=== PATIENT | female | born 1955 | race Caucasian/White ===

== ENCOUNTER 2016-06-16 23:13 | Inpatient (IN) | payer BC, OTHER ==
[~2016-06-16] VITALS: Ht 170.2 cm; Wt 95.6 kg
[2016-06-16 23:13] VITALS: Ht 170.2 cm; Wt 95.6 kg
[~2016-06-16 23:13] MED LIST: ASPI-650; HYDR12.58; VENL75TA61
--- NOTE | 2016-06-16 23:20 | ERA ---
ER Documentation Chief Complaint Date/Time DATE: 06/16/16 TIME: 23:20 Chief Complaint Cardiac arrest HPI The patient is a 60-year-old female, presenting to the ER because of witnessed cardiac arrest around 10:25 pm by her daughter. She she appeared to have acute dyspnea and seizure-like activity after smoking, then fell backward and hit her head on the floor. The EMS arrived at the scene about 10:30 PM. She was intubated and defibrillated 5 times, treated with epinephrine 1 mg IV 4, amiodarone 450 mg IV and 1 amp of sodium bicarb IV with good response. The history is mainly obtained from spray painter helper and the daughter Past medical history: Hypertension, hepatitis C, cluster headache,CAD Past surgical history: Bilateral bunionectomy, tubal ligation ROS All systems reviewed and are negative except as per history of present illness. Medications Home Meds Reported Medications Aspirin (Aspirin) 81 Mg Tablet 04/01/10 Hydrochlorothiazide* (Hydrochlorothiazide*) 12.5 Mg Tablet 04/01/10 Venlafaxine Hcl (Effexor) 75 Mg Tablet 04/01/10 Allergies Allergies: Coded Allergies: Sulfa (Sulfonamide Antibiotics) (Verified Allergy, Unknown, 07/05/11) PMhx/Soc History of Surgery: Yes (FEET) Anesthesia Reaction: No Hx Neurological Disorder: No Hx Respiratory Disorders: No Hx Cardiac Disorders: Yes Hx Psychiatric Problems: Yes (DEPRESSION) Hx Miscellaneous Medical Probl: No Hx Alcohol Use: Yes (QUIT FOR 20 YRS) Hx Substance Use: Yes (QUIT 20 YEARS AGO) Hx Tobacco Use: Yes Physical Exam Vitals Vital Signs Date Time Temp Pulse Resp B/P Pulse Ox O2 Delivery O2 Flow Rate FiO2 06/16/16 23:40 50 06/16/16 23:16 21 100 100 06/16/16 23:13 98.6 77 20 95/57 100 Physical Exam Const: Intubated Head: Atraumatic. Eyes: Normal Conjunctiva. ENT: Normal External Ears, Nose and Mouth. Neck: Full range of motion. No meningismus. Resp: Clear to auscultation bilaterally. Anteriorly and laterally Cardio: Regular rate and rhythm, no murmurs. Abd: Soft, non distended, normal bowel sounds, non tender. Skin: No petechiae or rashes. Back: No midline or flank tenderness. Ext: No cyanosis, or edema. Neur: Unable to perform due to condition Psych: Unable to perform due to condition Result Diagram: 06/16/167 06/16/16 2317 Results 24 hrs Laboratory Tests Test 06/16/16 23:00 06/16/16 23:17 06/16/16 23:25 Magnesium Level 2.7mg/dl Activated Partial Thromboplast Time 37.0Sec Alanine Aminotransferase (ALT/SGPT) 25IU/L Albumin 3.3g/dl Albumin/Globulin Ratio 1.50 Alkaline Phosphatase 94IU/L Anion Gap 27 Aspartate Amino Transf (AST/SGOT) 50IU/L Basophils # 0.010^3/ul Basophils % 0.0% Blood Urea Nitrogen 17mg/dl Calcium Level 8.3mg/dl Carbon Dioxide Level 17mmol/L Chloride Level 100mmol/L Creatinine 0.95mg/dl Differential Comment MANUAL DIFF Direct Bilirubin 0.00mg/dl Eosinophils # 0.010^3/ul Eosinophils % 0.0% Globulin 2.20g/dl Glucose Level 285mg/dl Hematocrit 37.5% Hemoglobin 12.8g/dl INR International Normalized Ratio 1.10 Indirect Bilirubin 0.0mg/dl Lactic Acid Level 13.3mmol/L Lymphocytes # 9.210^3/ul Lymphocytes % 61.0% Mean Corpuscular Hemoglobin 32.2pg Mean Corpuscular Hemoglobin Concent 34.0g/dl Mean Corpuscular Volume 94.6fl Mean Platelet Volume 9.4fl Monocytes # 0.510^3/ul Monocytes % 3.0% Neutrophils # 5.110^3/ul Neutrophils % 34.0% Nucleated Red Blood Cells # 0.010^3/ul Nucleated Red Blood Cells % 0.0/100WBC Platelet Count 79092^3/UL Potassium Level 2.2mmol/L Prothrombin Time 14.2Sec Prothrombin Time Ratio 1.1 Red Blood Count 3.9610^6/ul Red Cell Distribution Width 12.8% Sodium Level 142mmol/L Total Bilirubin 0.0mg/dl Total Protein 5.5g/dl Troponin I 4.640ng/ml White Blood Count 15.110^3/ul Arterial Blood HCO3 15.7mmol/L Arterial Blood Base Excess -11.6mmol/L Arterial Blood Oxygen Saturation 99.2mmHG Kar Test ACCEPTAB Arterial Blood Gas Puncture Site Right Radial Arterial Blood Carboxyhemoglobin 0.5% Arterial Blood Date Drawn 06/16/2016 11:20:00 PM Arterial Blood Methemoglobin 0.5% Arterial Blood pCO2 (Temp correct) 40.4mmhg Arterial Blood pH (Temp corrected) 7.206 Arterial Blood pO2 (Temp corrected) 450.8mmHG Blood Gas A-a O2 Differential 221.8mmHg Blood Gas Actual Respiration Rate 16 Blood Gas Critical Value Read Back Selena DOHERTY MD Blood Gas Low PEEP Setting 5.0cmH2O Blood Gas Modality VENT - AC Blood Gas Notified Time 06/16/2016 11:35:57 PM Blood Gas Notified Whom MA Blood Gas Respiration Rate 16.0 Blood Gas Specimen Source Blood arterial Blood Gas Temperature 37.0C Blood Gas Tidal Volume 500.0mL FiO2 100.0% Oxyhemoglobin Percent 98.2% Total Hemoglobin 12.6g/dl Current Medications Medications (Trade) Dose Ordered Sig/Marta Route PRN Reason Start Time Stop Time Status Last Admin Dose Admin Heparin Sodium/ Sodium Chloride (Heparin 1000 Units/NS (A-Line)) 1,500 ml @ ud STK-MED ONCE .ROUTE 06/16/16 23:46 06/16/16 23:47 DC Iodixanol (Visipaque Locm) 100 ml STK-MED ONCE .ROUTE 06/16/16 23:47 06/16/16 23:48 DC Iodixanol (Visipaque Locm) 50 ml STK-MED ONCE .ROUTE 06/16/16 23:47 06/16/16 23:48 DC Nitroglycerin (Nitroglycerin (Intracoronary)) 1,000 mcg STK-MED ONCE .ROUTE 06/16/16 23:47 06/16/16 23:48 DC Procedures/[place] [id number] Radiology Main Line: [phone] DIAGNOSTIC IMAGING REPORT Patient: WAYNE MINER : 1955 Age: 60 Sex: F MR #: [id number] DOS: 06/16/16 2320 Ordering MD: SAM DOHERTY MD Location: E/R Room/Bed: PROCEDURE: XR Chest. CLINICAL INDICATION: Possible sepsis. NG tube placement TECHNIQUE: Portable AP supine view of the chest was obtained. COMPARISON: None. FINDINGS: The cardiomediastinal silhouette is within normal limits. An endotracheal tube is present the distal tip projecting 2.8 cm above the esther. The lungs are grossly clear. No nasogastric tube is visible. There is no evidence for pleural effusion, pneumothorax or pulmonary vascular congestion. The osseous structures are intact with no evidence for acute abnormality. RPTAT:HJJR IMPRESSION: 1. Distal tip of the endotracheal tube approximate 2.8 cm above the esther. 2. No NG tube is visible. 3. No evidence of acute intrathoracic pathology. Physician Janine Date Time Electronically viewed and signed by Physician Janine on 06/16/2016 23:49 JR/ CC: SAM DOHERTY MD [place] [id number] Radiology Main Line: [phone] DIAGNOSTIC IMAGING REPORT Patient: WAYNE MINER : 1955 Age: 60 Sex: F [id number] DOS: 06/16/16 2339 Ordering MD: SAM DOHERTY MD Location: E/R Room/Bed: PROCEDURE: CT Head without contrast. CLINICAL INDICATION: fall TECHNIQUE: Continuous axial CT images were obtained from the base of skull to the vertex. No contrast was administered. The calculated radiation dose measures 1696 mGy centimeters. The CTDI measures 240 mGy COMPARISON: No prior studies are available for comparison. FINDINGS: The ventricles are symmetric and normal in size. There is no mass effect or midline shift. There is no abnormal intra-axial or extra-axial fluid collection. There is no evidence of intracranial hemorrhage. There are no abnormal areas of increased or decreased attenuation in the brain parenchyma. There is left supraorbital and parietal scalp soft tissue swelling. The bony calvarium is intact. The orbital soft tissue contents are unremarkable. There is mild mucosal thickening in the paranasal sinuses. There is fluid in the posterior nasopharynx, with a endotracheal tube placed. IMPRESSION: No mass effect or acute intracranial bleed. Chronic sinus disease change. Left supraorbital and parietal scalp soft tissue swelling. RPTAT: HBST . .Angelo Diallo MD, Date Time Electronically viewed and signed by .Angelo Diallo MD, MD on 06/17/2016 00:18 .T/ CC: SAM DOHERTY MD [place] [id number] Radiology Main Line: [phone] DIAGNOSTIC IMAGING REPORT Patient: WAYNE MINER : 1955 Age: 60 Sex: F MR #: [id number] DOS: 06/16/16 2341 Ordering MD: SAM DOHERTY MD Location: E/R Room/Bed: PROCEDURE: CT Cervical Spine without contrast. CLINICAL INDICATION: Trauma, pain TECHNIQUE: Multiple axial cuts through the cervical spine with coronal and sagittal reformats were obtained without contrast. The calculated radiation dose measures 781 mGy centimeters. The CTDI measures 28 mGy COMPARISON: None available FINDINGS: There is straightening of the normal cervical lordosis. There is moderate to severe disk space narrowing at C5-C6 and C6-C7, with vacuum disk change. Vertebral body heights are maintained. There is no subluxation. There is no bone destruction or sclerosis. There is no dislocation or fracture. The atlantoaxial articulation appears normal. There is normal craniocervical alignment. There are mild disk osteophyte complexes at C5-C6 and C6-C7. There is minimal resulting bony central canal stenosis at C5-C6 and C6-C7. There is bilateral uncovertebral hypertrophy at C5-C6 and C6-C7. There are scattered mild facet hypertrophic changes through the cervical spine. There is mild appearing bony foraminal stenosis on the left at C5-C6 and C7-T1, and on the right at C3-C4, C5 -C6, and C6-C7. There is no abnormal paravertebral soft tissue mass. There is bilateral temporomandibular joint degenerative change. There is extensive bilateral dependent lung consolidation. IMPRESSION: 1. Straightening of the normal cervical lordosis. 2. No visualized fracture or dislocation. 3. Mild disk osteophyte complexes at C5-C6 and C6-C7, with minimal associated bony central canal stenosis. 4. Uncovertebral hypertrophy at C5-C6 and C6-C7, and scattered mild facet hypertrophic changes. Resulting mild foraminal stenosis as noted through the cervical spine. 5. Dense dependent bilateral lung consolidation, which may reflect aspiration pneumonia or pneumonitis. RPTAT: HBST .Angelo Diallo MD, MD Date Time Electronically viewed and signed by .Angelo Diallo MD, MD on 06/17/2016 00:29 .T/ CC: SAM DOHERTY MD EKG: Read by emergency physician at 11:12 PM Rate/Rhythm: Wide QRS and 79 beats/min QRS, ST, T-waves: Acute inferior [place] with lateral reciprocal changes, no PVC Impression: Abnormal EKG Consultation: The patient presenting with acute inferior [place]. I discussed the patient with the on-call club steward Dr Borja 11:15 pm. She was made aware of EKG finding and the pending labs and CT scan. She evaluated the patient in the ER and took the patient to the [facility] emergently MEDICAL MAKING DECISION: The patient is a 60-year-old female, presenting with acute inferior [place], status post cardiac arrest, probable acute septic shock, probable acute aspiration pneumonia, acute severe hypokalemia. She was treated with 2 L normal saline for acute hypotension, aspirin 300 mg suppository for acute STEMI, vancomycin IV and Zosyn IV for probable acute septic shock potassium chloride 40 mEq IV for acute hypokalemia, NG tube, Reina catheter, Ativan 2 mg IV and vecuronium 10 mg IV and propofol drip for sedation Admit MDM: Patient's infectious symptoms have not stabilized and the patient is at risk of rapid decompensation. The patient will be admitted for careful hydration, antibiotic therapy, and infectious source control. Severe Sepsis criteria: Infectious source: unknown End organ damage indicated by: Lactate > 2.0 mmol/L Hypotension (SBP < 90 or >40 mmHG drop or MAP < 65) Acute Resp Failure (sat < 92% w/o oxygen) Sepsis Management: Time of recognition of severe sepsis/septic shock: 11:20 pm Within 3 hours of recognition: Blood cultures x 2 before broad-spectrum antibiotics: Yes 30 ml/kg NS bolus completed Initial lactate 13,3 Repeat lactate pending Critical Care: Critical care time 35 minutes Emergent fluid management while maintaining close respiratory support. Provision of immediate and broad-spectrum antibiotic therapy. Simultaneous assessment for possible sources in order to direct targeted therapy. Consideration for invasive and chemical support to prevent cardiopulmonary collapse. Septic Shock Assessment: Any lactic acid > 4.0 yes Persistent hypotension (SBP < 90 or 40 mmHg drop, MAP < 65) despite 30 mL/kg IV fluid bolusno Volume Re-assessment for Septic Shock (post 30 ml/kg bolus): Temp93.6, BP161/90, HR87, RR20, Pox100% on vent Heart regular rate & rhythm Lungs no crackles Skin Warm & dry & pink Cap Refill less than 2 seconds Peripheral pulses radially present Persistent Hypotension Treatment: Comfort care no Central line not indicated, patient go to airport maintenance laborer Vasopressor started not indicated I considered further perfusion assessment with CVP measurement, SCVO2, bedside ultrasound volume assessment, passive leg raise, trial of further fluid bolus. And proceeded withIV fluid Departure Diagnosis: Primary Impression: STEMI (ST elevation myocardial infarction) Additional Impressions: Cardiac arrest Septic shock Hypokalemia Condition: Critical Comments I discussed the patient with Dr. Loaiza from [facility] who authorized admission to the hospitalist at [facility] I discussed the findings with the patient. I discussed the patient with the on- call hospitalist Dr. Siddiqui at 12:30 AM who was made aware of the lab, the treatment, the patient condition my discussion with investor relations analyst. The patient is admitted to ICU after going to airport maintenance laborer SAM DOHERTY MD Jun 16, 2016 23:20
[2016-06-16] MEDS ORDERED: PROPOFOL 100 ML ONE (23:25)
[2016-06-16] MEDS ORDERED: LORAZEPAM 2 MG INJ ONE (23:26)
[2016-06-16 23:33] LABS: HEMATOCRIT 37.5 % (37.0-47.0); HEMOGLOBIN 12.8 g/dl (12.0-16.0); MEAN CORPUSCULAR HEMOGLOBIN 32.2 pg (29.0-33.0); MEAN CORPUSCULAR VOLUME 94.6 fl (82.0-101.0); MEAN PLATELET VOLUME 9.4 fl (7.4-10.4); PLATELET COUNT 158 10^3/UL (140-440); RED BLOOD COUNT 3.96 10^6/ul (4.20-5.40); RED CELL DISTRIBUTION WIDTH 12.8 % (11.5-14.5); UNCORRECTED WBC 15.1 10^3/ul (4.8-10.8); WHITE BLOOD COUNT 15.1 10^3/ul (4.8-10.8)
[2016-06-16 23:40] LABS: CONDITION 1; LH ANALYZER COMMENTS 1
[2016-06-16 23:41] LABS: INR 1.1; PROTIME 14.2 Sec (12.2-14.2); PT RATIO 1.1
[2016-06-16 23:44] LABS: AADO2 Arterial 221.8 mmHg (7.0-24.0); Allen Test ACCEPTAB; Arterial Base Excess -11.6 mmol/L (-3.0-3); Arterial COHb 0.5 % (0.0-3.0); Arterial Fraction of Oxyhgb 98.2 % (93.0-99.0); Arterial HCO3 15.7 mmol/L (22.0-26.0); Arterial MetHb 0.5 % (0.0-1.5); Arterial Total Hemglobin 12.6 g/dl (12.0-18.0); MODE VENT - AC
[2016-06-16 23:47] LABS: ALBUMIN 3.3 g/dl (3.3-4.9)
[2016-06-16] MEDS ORDERED: NITROGLYCERIN (IC) 100 MCG/ML INJ ONE (23:47)
[2016-06-16] MEDS ORDERED: IODIXANOL LOCM 50 ML BTL ONE (23:47)
[2016-06-16] MEDS ORDERED: IODIXANOL LOCM 100 ML BTL ONE (23:47)
--- NOTE | 2016-06-16 23:49 | RADRPT ---
PROCEDURE: XR Chest. CLINICAL INDICATION: Possible sepsis. NG tube placement TECHNIQUE: Portable AP supine view of the chest was obtained. COMPARISON: None. FINDINGS: The cardiomediastinal silhouette is within normal limits. An endotracheal tube is present the dista l tip projecting 2.8 cm above the esther. The lungs are grossly clear. No nasogastric tube is visi ble. There is no evidence for pleural effusion, pneumothorax or pulmonary vascular congestion. The osseous structures are intact with no evidence for acute abnormality. RPTAT:HJJR IMPRESSION: 1. Distal tip of the endotracheal tube approximate 2.8 cm above the esther. 2. No NG tube is visible. 3. No evidence of acute intrathoracic pathology. Physician Janine Date Time Electronically viewed and signed by Physician Janine on 06/16/2016 23:49 /
[2016-06-16 23:50] LABS: ALBUMIN/GLOBULIN RATIO 1.5; CALCIUM 8.3 mg/dl (8.4-10.2); CREATININE 0.95 mg/dl (0.44-1.00); TOTAL PROTEIN 5.5 g/dl (6.1-8.1)
[2016-06-16 23:51] LABS: POTASSIUM 2.2 mmol/L (3.5-5.1)
[2016-06-17] VITALS (101 sets, daily range): BP systolic 101–176; BP diastolic 71–102; PULSE 49–90; RESP 0–25
[2016-06-17] MEDS ORDERED: VECURONIUM 10 MG VIAL ONE
[2016-06-17] MEDS ORDERED: POTASSIUM CHLORIDE 250 ML IVPB ONE
[2016-06-17] MEDS ORDERED: ASPIRIN 300 MG SUPP PR ONE
[2016-06-17] MEDS ORDERED: POTASSIUM CHLORIDE 40 MEQ in SOD CHLORIDE 0.9% 250 ML IV ONE (00:01)
--- NOTE | 2016-06-17 00:05 | CONS ---
Date/Time of Note Date/Time of Note DATE: 06/16/16 TIME: 23:58 Assessment/Plan Assessment/Plan Chief Complaint/Hosp Course 60 yo with witnessed vf arrest and ekg showing st elevations in inferior leads. Problems: Additional Assessment/Plan Impression: vf arrest stemi profound hypokalemia, K 2.2 hypertension hypercholesterolemia Plan: Cardiac cath now. Risks and benefits reviewed with son and daughter, they agree with proceeding. Replete K Further plans to come into place post cath. Consultation Date/Type/Reason Admit Date/Time 06/16/2016 Date of Consultation: Jun 16, 2016 Type of Consultation: cardiology Reason for Consultation VF arrest, inferior ST elevations Referring Provider: SAM DOHERTY MD Hx of Present Illness 60 yo smoker with hypertension, hypercholesterolemia, hep c, cluster headaches, and anxiety, presents after cardiac arrest. Patient went outside to smoke, family heard her fall to ground, ran outside to find her unresponsive and "seizing", son started CPR, EMS called and arrived within a few minutes. Presenting rhythm was VF, patient shocked five times, ekg post resuscitation shows ST elevations in the inferior leads. Subjective hx not possible: pt non-verbal, pt critical status Respiratory: sputum Past Medical History Medical History: hepatitis (hep c), high cholesterol, hypertension, other ( anxiety, cluster headaches) Past Surgical History Past Surgical Hx: no surgical history Family History Significant Family History: no pertinent family hx Social History Alcohol Use: none Smoking Status: Current every day smoker (half a pack a day) Drug Use: none Exam/Review of Systems Exam Constitutional: other (intubated, in c collar) Head: normocephalic ENMT: intubated Neck: No bruits, No jvd Respiratory: clear to auscultation (anteriorly) Cardiovascular: regular rate and rhythm Gastrointestinal: soft, No hepatomegaly Musculoskeletal: nl extremities to inspection Skin: No rash or lesions Results Result Diagram: 06/16/167 06/16/16 2317 Results 24 hrs Laboratory Tests Test 06/16/16 23:17 06/16/16 23:25 Activated Partial Thromboplast Time 37.0 H Alanine Aminotransferase (ALT/SGPT) 25 Albumin 3.3 Albumin/Globulin Ratio 1.50 Alkaline Phosphatase 94 Anion Gap 27 H Aspartate Amino Transf (AST/SGOT) 50 H Basophils # Pending Basophils % Pending Blood Urea Nitrogen 17 Calcium Level 8.3 L Carbon Dioxide Level 17 L Chloride Level 100 Creatinine 0.95 Direct Bilirubin 0.00 Eosinophils # Pending Eosinophils % Pending Globulin 2.20 Glucose Level 285 H Hematocrit 37.5 Hemoglobin 12.8 INR International Normalized Ratio 1.10 Indirect Bilirubin 0.0 Lactic Acid Level 13.3 *H Lymphocytes # Pending Lymphocytes % Pending Mean Corpuscular Hemoglobin 32.2 Mean Corpuscular Hemoglobin Concent 34.0 Mean Corpuscular Volume 94.6 Mean Platelet Volume 9.4 Monocytes # Pending Monocytes % Pending Neutrophils # Pending Neutrophils % Pending Nucleated Red Blood Cells # Pending Nucleated Red Blood Cells % Pending Platelet Count 158 Potassium Level 2.2 *L Prothrombin Time 14.2 Prothrombin Time Ratio 1.1 Red Blood Count 3.96 L Red Cell Distribution Width 12.8 Sodium Level 142 Total Bilirubin 0.0 L Total Protein 5.5 L Troponin I Pending White Blood Count 15.1 H Arterial Blood HCO3 15.7 L Arterial Blood Base Excess -11.6 L Arterial Blood Oxygen Saturation 99.2 H Kar Test ACCEPTAB Arterial Blood Gas Puncture Site Right Radial Arterial Blood Carboxyhemoglobin 0.5 Arterial Blood Date Drawn 06/16/2016 11:20:00 PM Arterial Blood Methemoglobin 0.5 Arterial Blood pCO2 (Temp correct) 40.4 Arterial Blood pH (Temp corrected) 7.206 *L Arterial Blood pO2 (Temp corrected) 450.8 H Blood Gas A-a O2 Differential 221.8 H Blood Gas Actual Respiration Rate 16 Blood Gas Critical Value Read Back Selena DOHERTY MD Blood Gas Low PEEP Setting 5.0 Blood Gas Modality VENT - AC Blood Gas Notified Time 06/16/2016 11:35:57 PM Blood Gas Notified Whom SHIRLEY Blood Gas Respiration Rate 16.0 Blood Gas Specimen Source Blood arterial Blood Gas Temperature 37.0 Blood Gas Tidal Volume 500.0 FiO2 100.0 Oxyhemoglobin Percent 98.2 Total Hemoglobin 12.6 Medications Medications Current Medications Aspirin 300 mg 300 mg ONCE ONCE CA ; Start 06/17/16 at 00:00; Stop 06/17/16 at 00:01 Potassium Chloride (KCl 40 MEQ/250 ML NS) 250 ml @ 62.5 mls/hr ONCE ONCE IVPB ; Start 06/17/16 at 00:00; Stop 06/17/16 at 03:59 NELIA COTTON Jun 17, 2016 00:05
[2016-06-17 00:06] LABS: TROPONIN-I 4.64 ng/ml (0.00-0.12)
--- NOTE | 2016-06-17 00:19 | RADRPT ---
PROCEDURE: CT Head without contrast. CLINICAL INDICATION: fall TECHNIQUE: Continuous axial CT images were obtained from the base of skull to the vertex. No cont rast was administered. The calculated radiation dose measures 1696 mGy centimeters. The CTDI measure s 240 mGy COMPARISON: No prior studies are available for comparison. FINDINGS: The ventricles are symmetric and normal in size. There is no mass effect or midline shift. There i s no abnormal intra-axial or extra-axial fluid collection. There is no evidence of intracranial hem orrhage. There are no abnormal areas of increased or decreased attenuation in the brain parenchyma. There is left supraorbital and parietal scalp soft tissue swelling. The bony calvarium is intact. The orbital soft tissue contents are unremarkable. There is mild muc osal thickening in the paranasal sinuses. There is fluid in the posterior nasopharynx, with a endot pricilla tube placed. IMPRESSION: No mass effect or acute intracranial bleed. Chronic sinus disease change. Left supraorbital and par ietal scalp soft tissue swelling. RPTAT: HBST . .Angelo Diallo MD, MD Date Time Electronically viewed and signed by .Angelo Diallo MD, MD on 06/17/2016 00:18 .T/
--- NOTE | 2016-06-17 00:29 | RADRPT ---
PROCEDURE: CT Cervical Spine without contrast. CLINICAL INDICATION: Trauma, pain TECHNIQUE: Multiple axial cuts through the cervical spine with coronal and sagittal reformats were obtained without contrast. The calculated radiation dose measures 781 mGy centimeters. The CTDI korey sures 28 mGy COMPARISON: None available FINDINGS: There is straightening of the normal cervical lordosis. There is moderate to severe disk space narr owing at C5-C6 and C6-C7, with vacuum disk change. Vertebral body heights are maintained. There is no subluxation. There is no bone destruction or sclerosis. There is no dislocation or fracture. The atlantoaxial articulation appears normal. There is normal craniocervical alignment. There are mild disk osteophyte complexes at C5-C6 and C6-C7. There is minimal resulting bony centra l canal stenosis at C5-C6 and C6-C7. There is bilateral uncovertebral hypertrophy at C5-C6 and C6-C 7. There are scattered mild facet hypertrophic changes through the cervical spine. There is mild a ppearing bony foraminal stenosis on the left at C5-C6 and C7-T1, and on the right at C3-C4, C5-C6, a nd C6-C7. There is no abnormal paravertebral soft tissue mass. There is bilateral temporomandibular joint dege nerative change. There is extensive bilateral dependent lung consolidation. IMPRESSION: 1. Straightening of the normal cervical lordosis. 2. No visualized fracture or dislocation. 3. Mild disk osteophyte complexes at C5-C6 and C6-C7, with minimal associated bony central canal st enosis. 4. Uncovertebral hypertrophy at C5-C6 and C6-C7, and scattered mild facet hypertrophic changes. Re sulting mild foraminal stenosis as noted through the cervical spine. 5. Dense dependent bilateral lung consolidation, which may reflect aspiration pneumonia or pneumoni tis. RPTAT: HBST .Angelo Diallo MD, MD Date Time Electronically viewed and signed by .Angelo Diallo MD, on 06/17/2016 00:29 .T/
[2016-06-17] MEDS ORDERED: PIPER-TAZO 3.375 GM IV (PMX) 100 ML IVPB ONE (00:30)
[2016-06-17] MEDS ORDERED: VANCOMYCIN 1 GM (PMX) 250 ML IVPB SCH (00:30)
[2016-06-17] MEDS ORDERED: EPTIFIBATIDE 10 ML ONE (01:20)
[2016-06-17] MEDS ORDERED: IODIXANOL LOCM 100 ML BTL ONE (01:20)
[2016-06-17] MEDS ORDERED: EPTIFIBATIDE 100 ML IV ONE (01:20)
--- NOTE | 2016-06-17 01:25 | EN ---
Date/Time of Note Date/Time of Note DATE: 06/17/16 TIME: Event Note Cardiology Cardiology Event Note Cardiac Catheterization Report Date of Procedure: June 17, 2016 Pre-Procedure Dx: VF arrest and inferior STEMI Post-Procedure Dx: VF arrest most likely secondary to profound hypokalemia due to diuretic usage, possible but less likely thrombosis of the distal left circumflex Procedures performed: Coronary angiography, left heart catheterization, left ventriculography, balloon angioplasty of the distal left circumflex Findings: Left main normal LAD -- Mild 10% luminal irregularities in the proximal and mid vessel. LCX -- nondominant. Possible abrupt cutoff in the distal vessel, which measures about 2 mm in diameter RCA -- dominant, normal LV gram demonstrates normal LV systolic function, EF 65%, no wall motion abnormalities. Indications: Witnessed VF arrest and abnormal ekg. Informed consent obtained from son and daughter. Right common femoral artery accessed, 6F sheath placed. JL4 diagnostic and FR4 guide used to take diagnostic images. Upon close review of images, there was a question of whether there was an abrupt cutoff of the distal left circumflex. Heparin administered, a Luge wire passed but did not advance much further than the cutoff, a 2.0x12 mm balloon was inflated, and there was some faint improvement of flow distally. Integrilin started. Due to the vessel being very small, no stent was placed. Discussion: VF arrest. While there was a questionable distal LCX lesion, it seems more likely that the patient's cardiac arrest was secondary to profound hypokalemia with a K of 2.2, and she chronically takes hydrochlorothiazide 25 mg daily for blood pressure control. That said, to err on the side of caution that there may have been occlusion of this very small vessel, Integrilin will be continued. The above was discussed with the patient's son and daughter. NELIA COTTON Jun 17, 2016 01:25
[2016-06-17] MEDS ORDERED: SOD CHLORIDE 0.9% 1,000 ML IV SCH (01:28)
[2016-06-17] MEDS ORDERED: HEPARIN 1000 UNITS/ML 10 ML INJ ONE (01:29)
[2016-06-17] MEDS ORDERED: DEXTROSE 50% 50 ML SYRINGE IV PRN ×2 (01:30)
[2016-06-17] MEDS ORDERED: ACETAMINOPHEN 650 MG SUPP PR PRN ×2 (01:30)
[2016-06-17] MEDS ORDERED: BISACODYL 10 MG SUPP PR PRN (01:30)
[2016-06-17] MEDS ORDERED: LORAZEPAM 2 MG INJ IV PRN (01:30)
[2016-06-17] MEDS ORDERED: ACETAMINOPHEN 650MG/20.3ML CUP PO PRN (01:30)
[2016-06-17] MEDS ORDERED: IPRATROPIUM (HFA) 12.9 GM INHALER INH PRN (01:30)
[2016-06-17] MEDS ORDERED: MEPERIDINE 25 MG INJ IV PRN ×2 (01:30)
[2016-06-17] MEDS ORDERED: NITROGLYCERIN (SL) 0.4 MG TAB SL PRN (01:30)
[2016-06-17] MEDS ORDERED: INSULIN REGULAR, HUMAN 100 UNIT in SOD CHLORIDE 0.9% 99 ML IV SCH ×2 (01:30)
[2016-06-17] MEDS ORDERED: POTASSIUM CHLORIDE 250 ML IV ONE (01:30)
[2016-06-17] MEDS ORDERED: ALBUTEROL HFA 8 GM INHALER INH PRN (01:30)
[2016-06-17] MEDS: ACCUCHECK XX SCH ×23 (01:30→23:48)
[2016-06-17] MEDS ORDERED: EPTIFIBATIDE 100 ML IV SCH (01:30)
[2016-06-17] MEDS ORDERED: ONDANSETRON 4 MG INJ IV PRN (01:30)
[2016-06-17 01:40] LABS: LYMPHOCYTES # 9.2 10^3/ul (0.8-2.9); MONOCYTE # 0.5 10^3/ul (0.3-0.9); NEUTROPHIL # 5.1 10^3/ul (1.6-7.5)
--- NOTE | 2016-06-17 01:59 | HP ---
Date/Time of Note Date/Time of Note DATE: 06/17/16 TIME: 01:48 Assessment/Plan VTE Prophylaxis VTE Prophylaxis Intervention: SCD's Lines/Catheters Urinary Cath still in place: Yes Reason Cath still needed: urinary retention Assessment/Plan Assessment/Plan 60 yo female with a past medical history of essential hypertension, depression who came in for Vfib arrest. 1. Vfib arrest - 2/2 severe hypokalemia vs cardiac origin will admit the patient to ICU, consult pulm/cardio, cycle cardiac markers, check echocardiogram , TSH level, lipid panel, hypothermia protocol 2. VDRF - will wean as tolerated, once weaned off of hypothermia 3. Metabolic acidosis - severe - will start bicarb drip 4. Severe hypokalemia - replete 5. Bilateral pneumonia vs pneumonitis - will start IV antibiotics 6. Hyperglycemia - check hgba1c, insulin drip as per protocol 7. Essential hypertension - stable for now 8. Depression - hold ssri 9. GI ppx - protonix 10. DVT ppx - heparin as per clinical course. prognosis is guarded this critical care note took greater than 1 hour to complete HPI/ROS Admit Date/Time Admit Date/Time 06/17/2016, 1:48 am Hx of Present Illness 60 yo female with a past medical history of essential hypertension, depression who came in for Vfib arrest. The patient was noted to by family to have collapsed on the floor, hit the back of her head. Immediately the family conducted CPR until EMS arrived. EMS took over and intubated the patient as well. She was subsequently brought here to [facility] for further evaluation and treatment. Patient had 4 rounds of epinephrine, 450 bolus of amiodarone for sustained Vfib. Code STEMI was called and patient was taken to seed laboratory technician by cardiology. All this information was gathered from the chart, as the patient is intubated and sedated. ED course: zosyn/vanc, potassium supplementation, aspirin ROS Subjective hx not possible: pt non-verbal, pt critical status Respiratory: sputum PMH/Family/Social Past Medical History Medical History: hepatitis (hep c), high cholesterol, hypertension, other ( anxiety, cluster headaches) Past Surgical History Past Surgical Hx: no surgical history Family History Significant Family History: no pertinent family hx Social History Alcohol Use: none Smoking Status: Current every day smoker (half a pack a day) Drug Use: none Exam/Review of Systems Vital Signs Vitals Vital Signs Date Time Temp Pulse Resp B/P Pulse Ox O2 Delivery O2 Flow Rate FiO2 06/17/16 01:05 84 20 100 50 06/16/16 23:13 98.6 95/57 Exam Exam Gen Juan: intubated sedated HEENT: hematoma left supraorbital region, PERRLA, ETT in place NECK: supple, no thyromegaly THORAX: symmetrical, no obvious deformities CV: S1S2, RRR, no M/G/R Lungs: diminished breath sounds to the bases bilaterally, no wheezing or rhonchi Abd: soft, NT/ND, +BS, no rebound, no guarding, neg HSM EXT: trace bilateral lower extremity edema, no ecchymosis, no clubbing, FROM Neuro: sedated Psych: cannot assess Skin: C/D/I Labs Result Diagram: 06/16/16231606/16/162316 Medications Medications Current Medications Potassium Chloride 40 meq/ Sodium Chloride 270 ml @ 67.5 mls/hr ONCE ONCE IV Last administered on 06/17/16t 00:10; Admin Dose 67.5 MLS/HR; Start 06/17/16 at 00:01; Stop 06/17/16 at 04:00 Vancomycin HCl 250 ml @ 125 mls/hr ONCE IVPB ; Start 06/17/16 at 00:30; Stop at 02:29 Eptifibatide (Integrilin) 100 ml @ 6.27 mls/hr [id number] IV ; Start 06/17/16 at 01:30 Aspirin (Aspirin) 81 mg DAILY NGT ; Start 06/17/16 at 09:00 Clopidogrel Bisulfate (plaVIX) 75 mg DAILY NGT ; Start 06/17/16 at 09:00 Atorvastatin Calcium 80 mg 80 mg HS NGT ; Start 06/17/16 at 21:00 Sodium Chloride (NS) 1,000 ml @ 50 mls/hr Q20H IV ; Start 06/17/16 at 01:28; Status UNV Ondansetron HCl 4 mg 4 mg Q6H PRN IV NAUSEA AND/OR VOMITING; Start 06/17/16 at 01:30; Status UNV Potassium Chloride (KCl 40 MEQ/250 ML NS) 250 ml @ 62.5 mls/hr ONCE ONCE IV ; Start 06/17/16 at 01:30; Stop 06/17/16 at 05:29; Status UNV Nitroglycerin (Nitroglycerin (Sl Tab) 0.4 Mg) 1 tab Q5M PRN SL CHEST PAIN; Start 06/17/16 at 01:30; Status UNV Acetaminophen (Tylenol Supp) 650 mg Q4H PRN [place] PAIN LEVEL 1-3 OR FEVER; Start 06/17/16 at 01:30; Status UNV Lorazepam (Ativan) 1 mg Q2H PRN IV ANXIETY; Start 06/17/16 at 01:30; Status UNV Bisacodyl (Dulcolax Supp) 10 mg DAILY PRN DE CONSTIPATION; Start 06/17/16 at 01 :30; Status UNV Pantoprazole 40 mg 40 mg DAILY@06 IV ; Start 06/17/16 at 06:00; Status UNV Sodium Chloride (NS) 1,000 ml @ 75 mls/hr [id number] IV ; Start 06/17/16 at 01:28 ; Status UNV Acetaminophen (Tylenol Supp) 650 mg Q4H PRN DE TEMP > 37C; Start 06/17/16 at 01 :30; Status UNV Acetaminophen (Tylenol Liquid) 650 mg Q4H PRN PO TEMP > 37C; Start 06/17/16 at 01:30; Status UNV Acetaminophen (Tylenol Supp) 500 mg Q6H DE ; Start 06/18/16 at 01:30; Status UNV Acetaminophen (Tylenol Liquid) 500 mg Q6H PO ; Start 06/18/16 at 01:30; Status UNV Meperidine HCl (Demerol) 12.5 mg Q4H PRN IV POST OPERATIVE SHIVERING; Start at 01:30; Status UNV Meperidine HCl (Demerol) 25 mg Q4H PRN IV POST OPERATIVE SHIVERING; Start 06/17 at 01:30; Status UNV Eye Lubricant (Akwa Oint) 1 applic Q6 BOTH EYES ; Start 06/17/16 at 06:00; Status UNV Eye Lubricant (Artificial Tears Oph) 2 drop Q6 BOTH EYES ; Start 06/17/16 at 06: 00; Status UNV Miscellaneous Information (* Miscellaneous Pharmacy Order) Discontinue all previ... PROTOCOL ONCE XX ; Start 06/17/16 at 01:30; Stop 06/17/16 at 01:31; Status UNV Diagnostic Test (Pha) (Accucheck) 1 ea Q1H XX ; Start 06/17/16 at 01:30; Status UNV Dextrose (D50w Syringe) 25 ml Q15M PRN IV Till BS 80 mg/dL or above x2; Start 06/17/16 at 01:30; Status UNV Dextrose (D50w Syringe) 50 ml Q15M PRN IV Till BS 80 mg/dL or above x2; Start 06/17/16 at 01:30; Status UNV Miscellaneous Information MEDICATION REQUIRES CLARIFICATI... Q8H XX ; Start 06/17/16 at 02:00 Sodium Bicarbonate/ Dextrose (Na Bicarb/D5W) 1,150 ml @ 50 mls/hr Q23H IV ; Start 06/17/16 at 02:00; Status UNV Procedures Procedures CT neck IMPRESSION: 1. Straightening of the normal cervical lordosis. 2. No visualized fracture or dislocation. 3. Mild disk osteophyte complexes at C5-C6 and C6-C7, with minimal associated bony central canal stenosis. 4. Uncovertebral hypertrophy at C5-C6 and C6-C7, and scattered mild facet hypertrophic changes. Resulting mild foraminal stenosis as noted through the cervical spine. 5. Dense dependent bilateral lung consolidation, which may reflect aspiration pneumonia or pneumonitis. CT head IMPRESSION: No mass effect or acute intracranial bleed. Chronic sinus disease change. Left supraorbital and parietal scalp soft tissue swelling. CXR IMPRESSION: 1. Distal tip of the endotracheal tube approximate 2.8 cm above the esther. 2. No NG tube is visible. 3. No evidence of acute intrathoracic pathology. VLAD ERWIN MD Jun 17, 2016 01:59
[2016-06-17] MEDS ORDERED: VANCOMYCIN IV PER PHARMACY XX SCH (02:00)
[2016-06-17] MEDS ORDERED: VANCOMYCIN 2 GM in SOD CHLORIDE 0.9% 500 ML IVPB ONE (02:00)
--- NOTE | 2016-06-17 02:02 | EN ---
Date/Time of Note Date/Time of Note DATE: 06/17/16 TIME: 02:00 Event Note Cardiology Cardiology Event Note Central Line Placement Indication: Cooling protocol, need central venous access Using modified seldinger technique, the right common femoral vein was accessed. Wire advanced, and over this, the central line was advanced. Ports were flushed, and the catheter was sutured in place. EBL: 5 cc Complications: None NELIA COTTON Jun 17, 2016 02:02
[2016-06-17 02:22] LABS: AADO2 Arterial 196.6 mmHg (7.0-24.0); Arterial Base Excess -5.8 mmol/L (-3.0-3); Arterial COHb 0.4 % (0.0-3.0); Arterial Fraction of Oxyhgb 96.5 % (93.0-99.0); Arterial HCO3 20.5 mmol/L (22.0-26.0); Arterial MetHb 0.4 % (0.0-1.5); Arterial Total Hemglobin 14.1 g/dl (12.0-18.0); MODE VENT - AC
[2016-06-17] MEDS: SOD CHLORIDE 0.9% 1,000 ML IV SCH ×2 (03:08→21:05)
[2016-06-17] MEDS: SODIUM BICARBONATE (IV ADD) 150 MEQ in DEXTROSE 5% 850 ML IV SCH ×2 (03:09→21:07)
[2016-06-17 03:11] LABS: CHOL/HDL RATIO 3.3 RATIO
[2016-06-17] MEDS: PROPOFOL 100 ML IV SCH ×5 (03:13→22:02)
[2016-06-17 03:42] LABS: THYROID STIMULATING HORMONE 2.3 MIU/L (0.465-4.680)
[2016-06-17] MEDS: VECURONIUM 100 MG in DEXTROSE 5% 100 ML IV SCH ×2 (04:13→14:15)
[2016-06-17] MEDS ORDERED: AMIODARONE 900 MG in DEXTROSE 5% 482 ML IV SCH (05:00)
[2016-06-17 06:11] LABS: ALBUMIN 3.8 g/dl (3.3-4.9)
[2016-06-17 06:14] LABS: ALBUMIN/GLOBULIN RATIO 1.58; BILIRUBIN,INDIRECT 0.1 mg/dl (0-1.1); BILIRUBIN,TOTAL 0.1 mg/dl (0.2-1.3); CREATININE 0.65 mg/dl (0.44-1.00); TOTAL PROTEIN 6.2 g/dl (6.1-8.1)
[2016-06-17 06:15] LABS: CALCIUM 6.7 mg/dl (8.4-10.2)
[2016-06-17 06:33] LABS: POTASSIUM 2.5 mmol/L (3.5-5.1)
[2016-06-17] MEDS: POTASSIUM CHLORIDE 50 ML IVPB PRN ×7 (06:39→22:02)
[2016-06-17] MEDS: PIPER-TAZO 3.375 GM IV (PMX) 100 ML IVPB SCH ×4 (06:42→23:27)
[2016-06-17] MEDS: OCULAR LUBRICANT 3.5 GM OPH OINT BOTH EYES SCH ×4 (06:43→23:28)
[2016-06-17] MEDS: PANTOPRAZOLE 40 MG INJ IV SCH (06:43)
[2016-06-17] MEDS: ARTIFICIAL TEARS 15 ML OPH BOTH EYES SCH ×4 (06:58→23:28)
--- NOTE | 2016-06-17 06:59 | RADRPT ---
PROCEDURE: XR Chest and abdomen. CLINICAL INDICATION: Nasogastric tube placement TECHNIQUE: An AP view of the chest and AP view of the upper abdomen were obtained. COMPARISON: Chest x-ray dated 06/16/2016 FINDINGS: The endotracheal tube tip is approximately 3.8 cm above the esther. The tip of the enteric tube is within the gastric body. Lung volumes are low with compressive changes. No focal airspace opacity, pleural effusion or pneumo thorax is seen. The cardiomediastinal silhouette is within normal limits for size. The osseous str uctures are unremarkable. IMPRESSION: 1. Low lung volumes with compressive changes. No significant interval change. 2. Tubes and lines, as described above. RPTAT: HH .Bonnie Cornelius MD, Date Time Electronically viewed and signed by .Bonnie Cornelius MD, on 06/17/2016 06:58 .G/
[2016-06-17 08:03] LABS: BASOPHILS % 0.2 % (0.0-2.0); EOSINOPHILS % 0.1 % (0.0-7.0); HEMOGLOBIN 13.9 g/dl (12.0-16.0); LYMPHOCYTES # 1.2 10^3/ul (0.8-2.9); LYMPHOCYTES % 7.3 % (15.0-51.0); MEAN CORPUSCULAR HEMOGLOBIN 31.7 pg (29.0-33.0); MEAN CORPUSCULAR HGB CONC 34.8 g/dl (32.0-37.0); MEAN CORPUSCULAR VOLUME 91.1 fl (82.0-101.0); MEAN PLATELET VOLUME 11.1 fl (7.4-10.4); MONOCYTE # 1.6 10^3/ul (0.3-0.9); MONOCYTES % 9.8 % (0.0-11.0); NEUTROPHIL # 13.2 10^3/ul (1.6-7.5); NEUTROPHILS % 81.3 % (39.0-77.0); PLATELET COUNT 174 10^3/UL (140-415); RED BLOOD COUNT 4.39 10^6/ul (4.20-5.40); RED CELL DISTRIBUTION WIDTH 12.5 % (11.5-14.5); WHITE BLOOD COUNT 16.2 10^3/ul (4.8-10.8)
[2016-06-17 08:07] LABS: AADO2 Arterial 184.3 mmHg (7.0-24.0); Arterial Base Excess -7.1 mmol/L (-3.0-3); Arterial COHb 0.3 % (0.0-3.0); Arterial Fraction of Oxyhgb 97.9 % (93.0-99.0); Arterial HCO3 18.8 mmol/L (22.0-26.0); Arterial MetHb 0.3 % (0.0-1.5); MODE VENT - AC
[2016-06-17] MEDS: IPRATROPIUM (HFA) 12.9 GM INHALER INH SCH ×4 (09:00→21:00)
[2016-06-17] MEDS: CLOPIDOGREL 75 MG TAB NGT SCH (09:00)
[2016-06-17] MEDS: ALBUTEROL HFA 8 GM INHALER INH SCH ×4 (09:00→21:00)
[2016-06-17] MEDS: ASPIRIN 81 MG TAB NGT SCH (09:00)
--- NOTE | 2016-06-17 09:19 | CONS ---
Date/Time of Note Date/Time of Note DATE: 06/17/16 TIME: 09:14 Assessment/Plan Assessment/Plan Additional Assessment/Plan Chest x-ray was reviewed from today which is showing endotracheal tube at an adequate level. There are minimal bilateral upper lobe infiltrates present. CT scan of spine also was done which is negative for any acute fracture. Assessment and recommendation; 1. Patient admitted for cardiac arrest with long CPR. Currently on hypothermia protocol. 2. Possibly some element of aspiration pneumonia. 3. Hypokalemia, currently on potassium replacement. 4. Difficult to rule out anoxic brain injury at this point. Continue current treatment. Mental status to be assessed once patient is off hypothermia protocol. Prognosis remains guarded. Consultation Date/Type/Reason Admit Date/Time 06/17/2016, 1:48 am Date of Consultation: Jun 17, 2016 Type of Consultation: Pulmonary/critical Reason for Consultation 60-year-old lady brought into the emergency room yesterday after cardiac arrest at home. Consultations obtained for management of respiratory failure. History of presenting illness; 60-year-old lady brought into the emergency room yesterday after the patient collapsed at home. Patient was in asystole underwent along CPR. Patient also had to be resuscitated at least a couple of times. Was taken to the [facility]. Also received Integrilin. Currently the patient is orally intubated on hypothermia protocol. Sedated and paralyzed. History was obtained from medical records Past medical history; 1. Hypertension. 2. Hepatitis C. 3. History of cluster headaches. 4. History of tubal ligation. Medications; were reviewed. Allergies; are to sulfa drugs. Social history; patient is a current smoker. Family history; currently not available. Occupational history; currently not available. Review of systems; not obtainable. General examination; middle aged woman, orally intubated. Sedated. Respiratory: sputum Past Medical History Medical History: hepatitis (hep c), high cholesterol, hypertension, other ( anxiety, cluster headaches) Past Surgical History Past Surgical Hx: no surgical history Social History Alcohol Use: none Smoking Status: Current every day smoker Drug Use: none Exam/Review of Systems Vital Signs Vitals Vital Signs Date Time Temp Pulse Resp B/P Pulse Ox O2 Delivery O2 Flow Rate FiO2 06/17/16 08:30 70 20 160/95 100 06/17/16 07:30 91.1 06/17/16 07:06 50 06/17/16 03:31 Mechanical Ventilator Intake and Output 06/16/16 06/16/16 06/17/16 15:00 23:00 07:00 Intake Total 737.79 ml Output Total 2503 ml Balance -1765.21 ml Exam H EENT examination; supple neck, positive JVD. No lymphadenopathy. Or intubated. Pupils are midsize and sluggishly reactive to light bilaterally. There is bleeding around the mouth. No neck masses. No thyromegaly. Chest examination; clear to auscultation bilaterally. S1-S2 audible, no murmurs. Regular rhythm. Abdomen examination; soft, nondistended. No organomegaly. Bowel sounds are audible. Extremity examination; no peripheral edema. Pulses 1+ bilaterally. RETAIL PHARMACIST examination; patient is sedated and paralyzed. Results Result Diagram: 06/17/16 0500 06/17/16 0500 Results 24 hrs Laboratory Tests Test 06/16/16 23:00 06/16/16 23:17 06/16/16 23:25 06/17/16 01:28 Magnesium Level 2.7 H Activated Partial Thromboplast Time 37.0 H Alanine Aminotransferase (ALT/SGPT) 25 Albumin 3.3 Albumin/Globulin Ratio 1.50 Alkaline Phosphatase 94 Anion Gap 27 H Aspartate Amino Transf (AST/SGOT) 50 H Basophils # 0.0 Basophils % 0.0 Blood Urea Nitrogen 17 Calcium Level 8.3 L Carbon Dioxide Level 17 L Chloride Level 100 Creatinine 0.95 Differential Comment MANUAL DIFF Direct Bilirubin 0.00 Eosinophils # 0.0 Eosinophils % 0.0 Globulin 2.20 Glucose Level 285 H Hematocrit 37.5 Hemoglobin 12.8 INR International Normalized Ratio 1.10 Indirect Bilirubin 0.0 Lactic Acid Level 13.3 *H Lymphocytes # 9.2 H Lymphocytes % 61.0 H Mean Corpuscular Hemoglobin 32.2 Mean Corpuscular Hemoglobin Concent 34.0 Mean Corpuscular Volume 94.6 Mean Platelet Volume 9.4 Monocytes # 0.5 Monocytes % 3.0 Neutrophils # 5.1 Neutrophils % 34.0 L Nucleated Red Blood Cells # 0.0 Nucleated Red Blood Cells % 0.0 Platelet Count 158 Potassium Level 2.2 *L Prothrombin Time 14.2 Prothrombin Time Ratio 1.1 Red Blood Count 3.96 L Red Cell Distribution Width 12.8 Sodium Level 142 Total Bilirubin 0.0 L Total Protein 5.5 L Troponin I 4.640 *H White Blood Count 15.1 H Arterial Blood HCO3 15.7 L 20.5 L Arterial Blood Base Excess -11.6 L -5.8 L Arterial Blood Oxygen Saturation 99.2 H 97.3 Kar Test ACCEPTAB N/A Arterial Blood Gas Puncture Site Right Radial A-Line Arterial Blood Carboxyhemoglobin 0.5 0.4 Arterial Blood Date Drawn 06/16/2016 11:20:00 PM 06/17/2016 2:10:55 AM Arterial Blood Methemoglobin 0.5 0.4 Arterial Blood pCO2 (Temp correct) 40.4 43.3 Arterial Blood pH (Temp corrected) 7.206 *L 7.294 *L Arterial Blood pO2 (Temp corrected) 450.8 H 111.2 H Blood Gas A-a O2 Differential 221.8 H 196.6 H Blood Gas Actual Respiration Rate 16 22 Blood Gas Critical Value Read Back Selena DOHERTY MD, RN Blood Gas Low PEEP Setting 5.0 5.0 Blood Gas Modality VENT - AC VENT - AC Blood Gas Notified Time 06/16/2016 11:35:57 PM 06/17/2016 2:21:53 AM Blood Gas Notified Whom SHIRLEY Blood Gas Respiration Rate 16.0 20.0 Blood Gas Specimen Source Blood arterial Blood arterial Blood Gas Temperature 37.0 37.0 Blood Gas Tidal Volume 500.0 500.0 FiO2 100.0 50.0 Oxyhemoglobin Percent 98.2 96.5 Total Hemoglobin 12.6 14.1 Test 06/17/16 02:11 06/17/16 03:04 06/17/16 04:02 06/17/16 05:00 Cholesterol Level 146 Cholesterol/HDL Ratio 3.3 HDL Cholesterol 44 Hemoglobin A1c 5.3 LDL Cholesterol, Calculated 92 Thyroid Stimulating Hormone (TSH) 2.300 Triglycerides Level 48 Troponin I 5.060 *H Bedside Glucose 209 166 Alanine Aminotransferase (ALT/SGPT) 46 Albumin 3.8 Albumin/Globulin Ratio 1.58 Alkaline Phosphatase 80 Anion Gap 18 #H Aspartate Amino Transf (AST/SGOT) 93 H Basophils # 0.0 Basophils % 0.2 Blood Urea Nitrogen 17 Calcium Level 6.7 L Carbon Dioxide Level 22 Chloride Level 113 H Creatinine 0.65 Direct Bilirubin 0.00 Eosinophils # 0.0 Eosinophils % 0.1 Globulin 2.40 Glucose Level 168 # Hematocrit 40.0 Hemoglobin 13.9 Indirect Bilirubin 0.1 Lactic Acid Level 2.8 H Lymphocytes # 1.2 Lymphocytes % 7.3 L Mean Corpuscular Hemoglobin 31.7 Mean Corpuscular Hemoglobin Concent 34.8 Mean Corpuscular Volume 91.1 Mean Platelet Volume 11.1 H Monocytes # 1.6 H Monocytes % 9.8 Neutrophils # 13.2 H Neutrophils % 81.3 H Nucleated Red Blood Cells # 0.0 Nucleated Red Blood Cells % 0.0 Platelet Count 174 Potassium Level 2.5 *L Red Blood Count 4.39 Red Cell Distribution Width 12.5 Sodium Level 150 H Total Bilirubin 0.1 L Total Protein 6.2 White Blood Count 16.2 H Test 06/17/16 05:35 06/17/16 07:00 06/17/16 07:29 06/17/16 08:46 Bedside Glucose 180 169 161 Arterial Blood HCO3 18.8 L Arterial Blood Base Excess -7.1 L Arterial Blood Oxygen Saturation 98.5 H Kar Test N/A Arterial Blood Gas Puncture Site A-Line Arterial Blood Carboxyhemoglobin 0.3 Arterial Blood Date Drawn 06/17/2016 7:48:17 AM Arterial Blood Methemoglobin 0.3 Arterial Blood pCO2 (Temp correct) 32.3 L Arterial Blood pH (Temp corrected) 7.360 Arterial Blood pO2 (Temp corrected) 140.9 H Blood Gas A-a O2 Differential 184.3 H Blood Gas Actual Respiration Rate 20 Blood Gas Critical Value Read Back A JAMES BRUNNER Blood Gas Low PEEP Setting 5.0 Blood Gas Modality VENT - AC Blood Gas Notified Time 06/17/2016 8:07:21 AM Blood Gas Notified Whom JLD Blood Gas Respiration Rate 20.0 Blood Gas Specimen Source Blood arterial Blood Gas Temperature 32.6 Blood Gas Tidal Volume 500.0 FiO2 50.0 Oxyhemoglobin Percent 97.9 Total Hemoglobin 14.0 Troponin I 6.470 *H Medications Medications Current Medications Aspirin (Aspirin) 81 mg DAILY NGT ; Start 06/17/16 at 09:00 Clopidogrel Bisulfate (plaVIX) 75 mg DAILY NGT ; Start 06/17/16 at 09:00 Atorvastatin Calcium 80 mg 80 mg HS NGT ; Start 06/17/16 at 21:00 Sodium Chloride (NS) 1,000 ml @ 50 mls/hr Q20H IV Last administered on t 03:08; Admin Dose 50 MLS/HR; Start 06/17/16 at 01:28 Ondansetron HCl (Zofran Inj) 4 mg Q6H PRN IV NAUSEA AND/OR VOMITING; Start at 01:30 Nitroglycerin (Nitroglycerin (Sl Tab) 0.4 Mg) 1 tab Q5M PRN SL CHEST PAIN; Start 06/17/16 at 01:30 Acetaminophen (Tylenol Supp) 650 mg Q4H PRN [place] PAIN LEVEL 1-3 OR FEVER; Start 06/17/16 at 01:30 Lorazepam (Ativan) 1 mg Q2H PRN IV ANXIETY; Start 06/17/16 at 01:30 Bisacodyl (Dulcolax Supp) 10 mg DAILY PRN AR CONSTIPATION; Start 06/17/16 at 01 :30 Pantoprazole 40 mg 40 mg DAILY@06 IV Last administered on 06/17/16 06:43; Admin Dose 40 MG; Start 06/17/16 at 06:00 Sodium Chloride (NS) 1,000 ml @ 75 mls/hr [id number] IV ; Start 06/17/16 at 01:28 Acetaminophen (Tylenol Supp) 650 mg Q4H PRN AR TEMP > 37C; Start 06/17/16 at 01 :30 Acetaminophen (Tylenol Liquid) 650 mg Q4H PRN PO TEMP > 37C; Start 06/17/16 at 01:30 Acetaminophen (Tylenol Supp) 500 mg Q6H AR ; Start 06/18/16 at 01:30 Acetaminophen (Tylenol Liquid) 500 mg Q6H PO ; Start 06/18/16 at 01:30 Meperidine HCl (Demerol) 12.5 mg Q4H PRN IV POST OPERATIVE SHIVERING; Start at 01:30 Meperidine HCl (Demerol) 25 mg Q4H PRN IV POST OPERATIVE SHIVERING; Start 06/17 at 01:30 Eye Lubricant (Akwa Oint) 1 applic Q6 BOTH EYES Last administered on 06/17/16 06:43; Admin Dose 1 APPLIC; Start 06/17/16 at 06:00 Eye Lubricant (Artificial Tears Oph) 2 drop Q6 BOTH EYES Last administered on 06:58; Admin Dose 2 DROP; Start 06/17/16 at 06:00 Diagnostic Test (Pha) (Accucheck) 1 ea Q1H XX Last administered on 06/17/16 08 :48; Admin Dose 1 EA; Start 06/17/16 at 01:30 Dextrose (D50w Syringe) 25 ml Q15M PRN IV Till BS 80 mg/dL or above x2; Start 06/17/16 at 01:30 Dextrose (D50w Syringe) 50 ml Q15M PRN IV Till BS 80 mg/dL or above x2; Start 06/17/16 at 01:30 Miscellaneous Information MEDICATION REQUIRES CLARIFICATI... Q8H XX ; Start 06/17/16 at 02:00 Sodium Bicarbonate 150 meq/Dextrose 1,000 ml @ 50 mls/hr Q20H IV Last administered on 06/17/16 03:09; Admin Dose 50 MLS/HR; Start 06/17/16 at 02:00 Piperacillin Sod/ Tazobactam Sod 100 ml @ 200 mls/hr Q6 IVPB Last administered on 06/17/16 06:42; Admin Dose 200 MLS/HR; Start 06/17/16 at 06:00 Vancomycin HCl 1.25 gm/Sodium Chloride 250 ml @ 83.333 mls/ hr Q12H IVPB ; Start 06/17/16 at 14:00 Vecuronium [place] 100 mg/ Dextrose 100 ml @ 5.22 mls/hr TITRATE IV Last administered on 06/17/16 04:13; Admin Dose 5.22 MLS/HR; Start 06/17/16 at 03:00 Amiodarone HCl/ Dextrose (Cordarone Iv/ D5W) 500 ml @ 0 mls/hr Q0M IV Last administered on 06/17/16 05:55; Admin Dose 33.3 MLS/HR; Start 06/17/16 at 05:00 ; Stop 06/18/16 at 04:59 GIOVANNI NAVARRETE Jun 17, 2016 09:19
[2016-06-17 12:13] LABS: ADD SCAN DIFF NO
[2016-06-17 12:22] LABS: BASOPHILS % 0.1 % (0.0-2.0); HEMATOCRIT 40.3 % (37.0-47.0); HEMOGLOBIN 13.9 g/dl (12.0-16.0); LYMPHOCYTES # 1.2 10^3/ul (0.8-2.9); LYMPHOCYTES % 10.5 % (15.0-51.0); MEAN CORPUSCULAR HEMOGLOBIN 31.1 pg (29.0-33.0); MEAN CORPUSCULAR HGB CONC 34.5 g/dl (32.0-37.0); MEAN CORPUSCULAR VOLUME 90.2 fl (82.0-101.0); MEAN PLATELET VOLUME 10.4 fl (7.4-10.4); MONOCYTE # 1.3 10^3/ul (0.3-0.9); MONOCYTES % 11.7 % (0.0-11.0); NEUTROPHIL # 8.7 10^3/ul (1.6-7.5); NEUTROPHILS % 76.6 % (39.0-77.0); PLATELET COUNT 164 10^3/UL (140-415); RED BLOOD COUNT 4.47 10^6/ul (4.20-5.40); RED CELL DISTRIBUTION WIDTH 12.7 % (11.5-14.5); WHITE BLOOD COUNT 11.4 10^3/ul (4.8-10.8)
[2016-06-17 12:29] LABS: CREATININE 0.5 mg/dl (0.44-1.00)
[2016-06-17 12:30] LABS: CALCIUM 6.3 mg/dl (8.4-10.2); PHOSPHORUS 1.4 mg/dl (2.5-4.9); POTASSIUM 2.4 mmol/L (3.5-5.1)
[2016-06-17 12:31] LABS: MAGNESIUM 1.4 mg/dl (1.7-2.5)
[2016-06-17 12:46] LABS: TROPONIN-I 3.54 ng/ml (0.00-0.12)
[2016-06-17 12:47] LABS: INR 0.99; PROTIME 13.1 Sec (12.2-14.2)
[2016-06-17 12:48] LABS: PARTIAL THROMBOPLASTIN TIME 28.5 Sec (25.0-35.0)
[2016-06-17 13:45] LABS: AADO2 Arterial 158.8 mmHg (7.0-24.0); Arterial Base Excess -4.1 mmol/L (-3.0-3); Arterial COHb 0.3 % (0.0-3.0); Arterial Fraction of Oxyhgb 98.3 % (93.0-99.0); Arterial HCO3 20.1 mmol/L (22.0-26.0); Arterial MetHb 0.2 % (0.0-1.5); Arterial Total Hemglobin 14.7 g/dl (12.0-18.0); MODE VENT - AC
[2016-06-17] MEDS ORDERED: VANCOMYCIN 1.25 GM in SOD CHLORIDE 0.9% 250 ML IVPB SCH (14:00)
[2016-06-17] MEDS ORDERED: CALCIUM GLUCONATE 10% 2 GM in SOD CHLORIDE 0.9% 100 ML IVPB ONE (14:00)
[2016-06-17] MEDS ORDERED: MAGNESIUM SULFATE 3 GM in SOD CHLORIDE 0.9% 100 ML IVPB ONE (14:30)
[2016-06-17] MEDS ORDERED: POTASSIUM PHOSPHATE 30 MM in SOD CHLORIDE 0.9% 250 ML IVPB ONE (14:30)
[2016-06-17] MEDS: VANCOMYCIN 1.5 GM in SOD CHLORIDE 0.9% 250 ML IVPB SCH (15:00)
[2016-06-17 19:02] LABS: ADD SCAN DIFF NO
[2016-06-17 19:04] LABS: BASOPHILS % 0.2 % (0.0-2.0); EOSINOPHILS % 0.2 % (0.0-7.0); HEMATOCRIT 37.9 % (37.0-47.0); HEMOGLOBIN 13.5 g/dl (12.0-16.0); LYMPHOCYTES # 1.5 10^3/ul (0.8-2.9); MEAN CORPUSCULAR HEMOGLOBIN 31.5 pg (29.0-33.0); MEAN CORPUSCULAR HGB CONC 35.6 g/dl (32.0-37.0); MEAN CORPUSCULAR VOLUME 88.3 fl (82.0-101.0); MEAN PLATELET VOLUME 10.8 fl (7.4-10.4); MONOCYTES % 8.8 % (0.0-11.0); NEUTROPHILS % 77.1 % (39.0-77.0); PLATELET COUNT 160 10^3/UL (140-415); RED BLOOD COUNT 4.29 10^6/ul (4.20-5.40); RED CELL DISTRIBUTION WIDTH 12.6 % (11.5-14.5); WHITE BLOOD COUNT 11.7 10^3/ul (4.8-10.8)
[2016-06-17 19:16] LABS: INR 0.99; PROTIME 13.1 Sec (12.2-14.2)
[2016-06-17 19:17] LABS: CREATININE 0.47 mg/dl (0.44-1.00)
[2016-06-17 19:18] LABS: CALCIUM 6.9 mg/dl (8.4-10.2); MAGNESIUM 2.2 mg/dl (1.7-2.5); PHOSPHORUS 4.5 mg/dl (2.5-4.9)
[2016-06-17 19:34] LABS: POTASSIUM 2.7 mmol/L (3.5-5.1)
[2016-06-17 19:53] LABS: PARTIAL THROMBOPLASTIN TIME 33.1 Sec (25.0-35.0)
[2016-06-17 20:02] LABS: TROPONIN-I 2.05 ng/ml (0.00-0.12)
--- NOTE | 2016-06-17 20:15 | PN ---
Date/Time of Note Date/Time of Note DATE: 06/17/16 TIME: 20:06 Assessment/Plan VTE Prophylaxis VTE Prophylaxis Intervention: SCD's Lines/Catheters IV Catheter Type (from Nrsg): Peripheral IV Urinary Cath still in place: Yes Reason Cath still needed: other (indicate) (intubated) Assessment/Plan Chief Complaint/Hosp Course 60 yo with witnessed vf arrest and ekg showing st elevations in inferior leads. Problems: Assessment/Plan VF arrest likely secondary to profound hypokalemia Questionable small distal left circumflex lesion, post balloon angioplasty of small vessel Hypokalemia, hypocalcemia Prolonged QTc on EKG due to electrolyte abnormalities Hypertension Recommendations: Continue asa, clopidogrel, and statin for treatment of possible small acute coronary occlusion Replete electrolytes Will add valsartan via ngt for blood pressure control, and to raise her serum potassium levels Would hold off on rewarming until electrolytes have been fully corrected EKG in am Will review echo Subjective 24 Hr Interval Summary Free Text/Dictation She remains intubated and sedated on hypothermia protocol. Potassium repletion is in progress, K is up to 2.7. EKG from this AM demonstrates NSR and a prolonged QT. Subjective hx not possible: pt non-verbal Exam/Review of Systems Vital Signs Vitals Vital Signs Date Time Temp Pulse Resp B/P Pulse Ox O2 Delivery O2 Flow Rate FiO2 06/17/16 19:45 55 20 155/80 100 06/17/16 19:15 91.8 06/17/16 16:55 50 06/17/16 03:31 Mechanical Ventilator Intake and Output 06/16/16 06/16/16 06/17/16 15:00 23:00 07:00 Intake Total 737.79 ml Output Total 2503 ml Balance -1765.21 ml Exam Constitutional: non-verbal Head: normocephalic ENMT: intubated Neck: other (cervical collar in place) Respiratory: clear to auscultation Cardiovascular: regular rate and rhythm, No jugular venous distention (JVD), No murmurs/extra sounds Gastrointestinal: soft Musculoskeletal: nl extremities to inspection Neurological: other (sedated) Skin: other (cool) Results Result Diagram: 06/17/16 1845 06/17/16 1845 Results 24 hrs Laboratory Tests Test 06/16/16 23:00 06/16/16 23:17 06/16/16 23:25 06/17/16 01:28 Magnesium Level 2.7 H Activated Partial Thromboplast Time 37.0 H Alanine Aminotransferase (ALT/SGPT) 25 Albumin 3.3 Albumin/Globulin Ratio 1.50 Alkaline Phosphatase 94 Anion Gap 27 H Aspartate Amino Transf (AST/SGOT) 50 H Basophils # 0.0 Basophils % 0.0 Blood Urea Nitrogen 17 Calcium Level 8.3 L Carbon Dioxide Level 17 L Chloride Level 100 Creatinine 0.95 Differential Comment MANUAL DIFF Direct Bilirubin 0.00 Eosinophils # 0.0 Eosinophils % 0.0 Globulin 2.20 Glucose Level 285 H Hematocrit 37.5 Hemoglobin 12.8 INR International Normalized Ratio 1.10 Indirect Bilirubin 0.0 Lactic Acid Level 13.3 *H Lymphocytes # 9.2 H Lymphocytes % 61.0 H Mean Corpuscular Hemoglobin 32.2 Mean Corpuscular Hemoglobin Concent 34.0 Mean Corpuscular Volume 94.6 Mean Platelet Volume 9.4 Monocytes # 0.5 Monocytes % 3.0 Neutrophils # 5.1 Neutrophils % 34.0 L Nucleated Red Blood Cells # 0.0 Nucleated Red Blood Cells % 0.0 Platelet Count 158 Potassium Level 2.2 *L Prothrombin Time 14.2 Prothrombin Time Ratio 1.1 Red Blood Count 3.96 L Red Cell Distribution Width 12.8 Sodium Level 142 Total Bilirubin 0.0 L Total Protein 5.5 L Troponin I 4.640 *H White Blood Count 15.1 H Arterial Blood HCO3 15.7 L 20.5 L Arterial Blood Base Excess -11.6 L -5.8 L Arterial Blood Oxygen Saturation 99.2 H 97.3 Kar Test ACCEPTAB N/A Arterial Blood Gas Puncture Site Right Radial A-Line Arterial Blood Carboxyhemoglobin 0.5 0.4 Arterial Blood Date Drawn 06/16/2016 11:20:00 PM 06/17/2016 2:10:55 AM Arterial Blood Methemoglobin 0.5 0.4 Arterial Blood pCO2 (Temp correct) 40.4 43.3 Arterial Blood pH (Temp corrected) 7.206 *L 7.294 *L Arterial Blood pO2 (Temp corrected) 450.8 H 111.2 H Blood Gas A-a O2 Differential 221.8 H 196.6 H Blood Gas Actual Respiration Rate 16 22 Blood Gas Critical Value Read Back Selena DOHERTY MD, RN Blood Gas Low PEEP Setting 5.0 5.0 Blood Gas Modality VENT - AC VENT - AC Blood Gas Notified Time 06/16/2016 11:35:57 PM 06/17/2016 2:21:53 AM Blood Gas Notified Whom SHIRLEY BOLAND Blood Gas Respiration Rate 16.0 20.0 Blood Gas Specimen Source Blood arterial Blood arterial Blood Gas Temperature 37.0 37.0 Blood Gas Tidal Volume 500.0 500.0 FiO2 100.0 50.0 Oxyhemoglobin Percent 98.2 96.5 Total Hemoglobin 12.6 14.1 Test 06/17/16 02:11 06/17/16 03:04 06/17/16 04:02 06/17/16 05:00 Cholesterol Level 146 Cholesterol/HDL Ratio 3.3 HDL Cholesterol 44 Hemoglobin A1c 5.3 LDL Cholesterol, Calculated 92 Thyroid Stimulating Hormone (TSH) 2.300 Triglycerides Level 48 Troponin I 5.060 *H Bedside Glucose 209 166 Alanine Aminotransferase (ALT/SGPT) 46 Albumin 3.8 Albumin/Globulin Ratio 1.58 Alkaline Phosphatase 80 Anion Gap 18 #H Aspartate Amino Transf (AST/SGOT) 93 H Basophils # 0.0 Basophils % 0.2 Blood Urea Nitrogen 17 Calcium Level 6.7 L Carbon Dioxide Level 22 Chloride Level 113 H Creatinine 0.65 Direct Bilirubin 0.00 Eosinophils # 0.0 Eosinophils % 0.1 Globulin 2.40 Glucose Level 168 # Hematocrit 40.0 Hemoglobin 13.9 Indirect Bilirubin 0.1 Lactic Acid Level 2.8 H Lymphocytes # 1.2 Lymphocytes % 7.3 L Mean Corpuscular Hemoglobin 31.7 Mean Corpuscular Hemoglobin Concent 34.8 Mean Corpuscular Volume 91.1 Mean Platelet Volume 11.1 H Monocytes # 1.6 H Monocytes % 9.8 Neutrophils # 13.2 H Neutrophils % 81.3 H Nucleated Red Blood Cells # 0.0 Nucleated Red Blood Cells % 0.0 Platelet Count 174 Potassium Level 2.5 *L Red Blood Count 4.39 Red Cell Distribution Width 12.5 Sodium Level 150 H Total Bilirubin 0.1 L Total Protein 6.2 White Blood Count 16.2 H Test 06/17/16 05:35 06/17/16 07:00 06/17/16 07:29 06/17/16 08:46 Bedside Glucose 180 169 161 Arterial Blood HCO3 18.8 L Arterial Blood Base Excess -7.1 L Arterial Blood Oxygen Saturation 98.5 H Kar Test N/A Arterial Blood Gas Puncture Site A-Line Arterial Blood Carboxyhemoglobin 0.3 Arterial Blood Date Drawn 06/17/2016 7:48:17 AM Arterial Blood Methemoglobin 0.3 Arterial Blood pCO2 (Temp correct) 32.3 L Arterial Blood pH (Temp corrected) 7.360 Arterial Blood pO2 (Temp corrected) 140.9 H Blood Gas A-a O2 Differential 184.3 H Blood Gas Actual Respiration Rate 20 Blood Gas Critical Value Read Back A JAMES BRUNNER Blood Gas Low PEEP Setting 5.0 Blood Gas Modality VENT - AC Blood Gas Notified Time 06/17/2016 8:07:21 AM Blood Gas Notified Whom JLD Blood Gas Respiration Rate 20.0 Blood Gas Specimen Source Blood arterial Blood Gas Temperature 32.6 Blood Gas Tidal Volume 500.0 FiO2 50.0 Oxyhemoglobin Percent 97.9 Total Hemoglobin 14.0 Troponin I 6.470 *H Test 06/17/16 09:47 06/17/16 10:30 06/17/16 11:39 06/17/16 12:09 Bedside Glucose 158 122 133 Activated Partial Thromboplast Time 28.5 Anion Gap 14 Basophils # 0.0 Basophils % 0.1 Blood Urea Nitrogen 16 Calcium Level 6.3 L Carbon Dioxide Level 23 Chloride Level 109 Creatinine 0.50 Eosinophils # 0.0 Eosinophils % 0.0 Fibrinogen 284.0 Glucose Level 134 Hematocrit 40.3 Hemoglobin 13.9 INR International Normalized Ratio 0.99 Lymphocytes # 1.2 Lymphocytes % 10.5 L Magnesium Level 1.4 L Mean Corpuscular Hemoglobin 31.1 Mean Corpuscular Hemoglobin Concent 34.5 Mean Corpuscular Volume 90.2 Mean Platelet Volume 10.4 Monocytes # 1.3 H Monocytes % 11.7 H Neutrophils # 8.7 H Neutrophils % 76.6 Nucleated Red Blood Cells # 0.0 Nucleated Red Blood Cells % 0.0 Phosphorus Level 1.4 L Platelet Count 164 Potassium Level 2.4 *L Prothrombin Time 13.1 Prothrombin Time Ratio 1.0 Red Blood Count 4.47 Red Cell Distribution Width 12.7 Sodium Level 144 Troponin I 3.540 *H White Blood Count 11.4 #H Test 06/17/16 13:16 06/17/16 13:28 06/17/16 14:28 06/17/16 15:38 Bedside Glucose 113 119 117 Arterial Blood HCO3 20.1 L Arterial Blood Base Excess -4.1 L Arterial Blood Oxygen Saturation 98.8 H Kar Test N/A Arterial Blood Gas Puncture Site A-Line Arterial Blood Carboxyhemoglobin 0.3 Arterial Blood Date Drawn 06/17/2016 1:35:57 PM Arterial Blood Methemoglobin 0.2 Arterial Blood pCO2 (Temp correct) 28.5 L Arterial Blood pH (Temp corrected) 7.448 Arterial Blood pO2 (Temp corrected) 170.6 H Blood Gas A-a O2 Differential 158.8 H Blood Gas Actual Respiration Rate 20 Blood Gas Low PEEP Setting 5.0 Blood Gas Modality VENT - AC Blood Gas Notified Time 06/17/2016 1:44:58 PM Blood Gas Notified Whom JLD Blood Gas Respiration Rate 20.0 Blood Gas Specimen Source Blood arterial Blood Gas Temperature 32.7 Blood Gas Tidal Volume 500.0 FiO2 50.0 Oxyhemoglobin Percent 98.3 Total Hemoglobin 14.7 Test 06/17/16 16:23 06/17/16 17:32 06/17/16 18:29 06/17/16 18:45 Bedside Glucose 108 104 116 Activated Partial Thromboplast Time 33.1 Anion Gap 17 H Basophils # 0.0 Basophils % 0.2 Blood Urea Nitrogen 14 Calcium Level 6.9 L Carbon Dioxide Level 24 Chloride Level 104 Creatinine 0.47 Eosinophils # 0.0 Eosinophils % 0.2 Fibrinogen 285.0 Glucose Level 111 Hematocrit 37.9 Hemoglobin 13.5 INR International Normalized Ratio 0.99 Lymphocytes # 1.5 Lymphocytes % 13.0 L Magnesium Level 2.2 Mean Corpuscular Hemoglobin 31.5 Mean Corpuscular Hemoglobin Concent 35.6 Mean Corpuscular Volume 88.3 Mean Platelet Volume 10.8 H Monocytes # 1.0 H Monocytes % 8.8 Neutrophils # 9.0 H Neutrophils % 77.1 H Nucleated Red Blood Cells # 0.0 Nucleated Red Blood Cells % 0.0 Phosphorus Level 4.5 # Platelet Count 160 Potassium Level 2.7 *L Prothrombin Time 13.1 Prothrombin Time Ratio 1.0 Red Blood Count 4.29 Red Cell Distribution Width 12.6 Sodium Level 142 Troponin I 2.050 *H White Blood Count 11.7 H Medications Medications Current Medications Aspirin (Aspirin) 81 mg DAILY NGT ; Start 06/17/16 at 09:00 Clopidogrel Bisulfate (plaVIX) 75 mg DAILY NGT ; Start 06/17/16 at 09:00 Atorvastatin Calcium 80 mg 80 mg HS NGT ; Start 06/17/16 at 21:00 Sodium Chloride (NS) 1,000 ml @ 50 mls/hr Q20H IV Last administered on 03:08; Admin Dose 50 MLS/HR; Start 06/17/16 at 01:28 Ondansetron HCl (Zofran Inj) 4 mg Q6H PRN IV NAUSEA AND/OR VOMITING; Start at 01:30 Nitroglycerin (Nitroglycerin (Sl Tab) 0.4 Mg) 1 tab Q5M PRN SL CHEST PAIN; Start 06/17/16 at 01:30 Acetaminophen (Tylenol Supp) 650 mg Q4H PRN RI PAIN LEVEL 1-3 OR FEVER; Start 06/17/16 at 01:30 Lorazepam (Ativan) 1 mg Q2H PRN IV ANXIETY; Start 06/17/16 at 01:30 Bisacodyl (Dulcolax Supp) 10 mg DAILY PRN RI CONSTIPATION; Start 06/17/16 at 01 :30 Pantoprazole (Protonix Iv) 40 mg DAILY@06 IV Last administered on 06/17/16 06: 43; Admin Dose 40 MG; Start 06/17/16 at 06:00 Acetaminophen (Tylenol Supp) 650 mg Q4H PRN RI TEMP > 37C; Start 06/17/16 at 01 :30 Acetaminophen (Tylenol Liquid) 650 mg Q4H PRN PO TEMP > 37C; Start 06/17/16 at 01:30 Acetaminophen (Tylenol Supp) 500 mg Q6H RI ; Start 06/18/16 at 01:30 Acetaminophen (Tylenol Liquid) 500 mg Q6H PO ; Start 06/18/16 at 01:30 Meperidine HCl (Demerol) 12.5 mg Q4H PRN IV POST OPERATIVE SHIVERING; Start at 01:30 Meperidine HCl (Demerol) 25 mg Q4H PRN IV POST OPERATIVE SHIVERING; Start 06/17 at 01:30 Eye Lubricant ([place] Oint) 1 applic Q6 BOTH EYES Last administered on 06/17/16 17:00; Admin Dose 1 APPLIC; Start 06/17/16 at 06:00 Eye Lubricant (Artificial Tears Oph) 2 drop Q6 BOTH EYES Last administered on 17:00; Admin Dose 2 DROP; Start 06/17/16 at 06:00 Diagnostic Test (Pha) (Accucheck) 1 ea Q1H XX Last administered on 06/17/16 19 :48; Admin Dose 1 EA; Start 06/17/16 at 01:30 Dextrose (D50w Syringe) 25 ml Q15M PRN IV Till BS 80 mg/dL or above x2; Start 06/17/16 at 01:30 Dextrose 50 ml 50 ml Q15M PRN IV Till BS 80 mg/dL or above x2; Start 06/17/16 at 01:30 Sodium Bicarbonate 150 meq/Dextrose 1,000 ml @ 50 mls/hr Q20H IV Last administered on 06/17/16 03:09; Admin Dose 50 MLS/HR; Start 06/17/16 at 02:00 Piperacillin Sod/ Tazobactam Sod 100 ml @ 200 mls/hr Q6 IVPB Last administered on 06/17/16 17:21; Admin Dose 200 MLS/HR; Start 06/17/16 at 06:00 Vecuronium [place] 100 mg/ Dextrose 100 ml @ 5.22 mls/hr TITRATE IV Last administered on 06/17/16 14:15; Admin Dose 6.27 MLS/HR; Start 06/17/16 at 03:00 Amiodarone HCl 900 mg/Dextrose 500 ml @ 0 mls/hr Q0M IV Last administered on 05:55; Admin Dose 33.3 MLS/HR; Start 06/17/16 at 05:00; Stop 06/18/16 at 04:59 Vancomycin HCl/ Sodium Chloride (Vancocin/NS) 250 ml @ 83.333 mls/ hr Q12H IVPB Last administered on 06/17/16 15:00; Admin Dose 83.333 MLS/HR; Start at 15:00 Miscellaneous Information (*Rx Drug Level Order Reminder*) 1 ONCE ONCE XX ; Start 06/18/16 at 14:00; Stop 06/18/16 at 14:01 Procedures Procedures EKG from this am -- nsr, prolonged QT interval with qtc 640 msec NELIA COTTON Jun 17, 2016 20:15
--- NOTE | 2016-06-17 20:22 | RADRPT ---
Echocardiogram Report Patient Name: WAYNE MINER Gender: Female Date: 1955 Study Date: 17-Jun-2016 Dba Manager: Anika Cole [place] Location: 116 Ref. Physician: MARRY BORJA Quality: Good Procedures: Transthoracic echocardiogram with complete 2D, M-Mode, and doppler examination. Indications: Acute Coronary Syndrome. 2D/M Mode Doppler Measurement Value Normal Ranges Measurement Value Normal Ranges LVIDd 2D 5.4 3.5 - 5.6 cm AV Peak Geoff 0.8 m/sec LVIDs 2D 4.0 2.1 - 4.1 cm AV Peak PG 2.8 mmHg LVPWd 2D 1.1 0.6 - 1.1 cm LVOT Peak Geoff 0.5 m/sec IVSd 2D 1.1 0.6 - 1.1 cm LVOT Peak PG 1.1 mmHg AoR Diam 2D 2.9 2.0 - 3.7 cm MV E Peak Geoff 0.4 m/sec EDV 2D 142.1 cm3 MV A Peak Geoff 0.7 m/sec ESV 2D 63.0 cm3 MV E/A 0.5 LA Dimen 2D 3.6 2.3 - 4.0 cm MV Decel Time 210 msec MV Decel [place] 2 MV E/A 0.5 TR Peak Geoff 2.0 m/sec TR Peak PG 16.5 mmHg RVSP 25.0 mmHg Findings Left Ventricle: Normal left ventricular cavity size. Normal left ventricular wall thickness. Mild global left ventricular systolic dysfunction. Ejection fraction is visually estimated at 40 %. Tissue Doppler/Mitral Doppler indices are consistent with impaired relaxation (Stage I diastolic dysfunction). Right Ventricle: Normal right ventricular size. Normal right ventricular systolic function. Left Atrium: The left atrium is normal in size. Right Atrium: The right atrium is normal in size. Mitral Valve: Mitral valve leaflets appear mildly thickened. Moderate mitral valve regurgitation. Aortic Valve: Normal appearance of the aortic valve. No significant aortic stenosis or insufficiency. Tricuspid Valve: Estimated peak PA systolic pressure 25 mmHg. There is mild tricuspid regurgitation. Pulmonic Valve: Normal pulmonic valve appearance. Pericardium: Normal pericardium with no significant pericardial effusion. Aorta: Normal aortic root. IVC: Inferior vena cava without respiratory collapse, however, patient on ventilator. Conclusions Good quality study. Moderately reduced left ventricular systolic function with global hypokinesis. Moderate mitral regurgitation. Mild tricuspid regurgitation with normal pulmonary pressures. Electronically Signed By: Marry Borja 17-Jun-2016 20:21:37 -0800 Patient Name: WAYNE MINER Study Date: 17-Jun-2016 [id number]
[2016-06-17] MEDS: VALSARTAN 160 MG TAB NGT SCH ×2 (20:30→23:28)
[2016-06-17] MEDS: METOPROLOL 25 MG TAB NGT SCH (21:00)
[2016-06-17] MEDS: ATORVASTATIN 80 MG TAB NGT SCH (21:05)
[2016-06-17 21:28] LABS: AADO2 Arterial 189.9 mmHg (7.0-24.0); Allen Test ACCEPTAB; Arterial Base Excess -3.9 mmol/L (-3.0-3); Arterial COHb 0.3 % (0.0-3.0); Arterial Fraction of Oxyhgb 98.1 % (93.0-99.0); Arterial MetHb 0.2 % (0.0-1.5); Arterial Total Hemglobin 13.8 g/dl (12.0-18.0); MODE VENT - AC
[2016-06-18] VITALS (92 sets, daily range): BP systolic 95–158; BP diastolic 55–82; PULSE 50–85; RESP 0–25
[2016-06-18 00:04] LABS: ADD SCAN DIFF NO
[2016-06-18 00:16] LABS: INR 1.02; PARTIAL THROMBOPLASTIN TIME 30.9 Sec (25.0-35.0); PROTIME 13.4 Sec (12.2-14.2)
[2016-06-18 00:18] LABS: HEMOGLOBIN 12.6 g/dl (12.0-16.0); MEAN CORPUSCULAR HEMOGLOBIN 31.6 pg (29.0-33.0); MEAN CORPUSCULAR VOLUME 87.7 fl (82.0-101.0); MEAN PLATELET VOLUME 10.6 fl (7.4-10.4); PLATELET COUNT 151 10^3/UL (140-415); RED BLOOD COUNT 3.99 10^6/ul (4.20-5.40); RED CELL DISTRIBUTION WIDTH 12.4 % (11.5-14.5)
[2016-06-18 00:20] LABS: CREATININE 0.37 mg/dl (0.44-1.00)
[2016-06-18 00:21] LABS: PHOSPHORUS 2.8 mg/dl (2.5-4.9)
[2016-06-18 00:22] LABS: MAGNESIUM 1.6 mg/dl (1.7-2.5)
[2016-06-18] MEDS: ACCUCHECK XX SCH ×17 (00:36→16:50)
[2016-06-18 00:41] LABS: TROPONIN-I 1.35 ng/ml (0.00-0.12)
[2016-06-18 00:50] LABS: CALCIUM 5.9 mg/dl (8.4-10.2); POTASSIUM 2.9 mmol/L (3.5-5.1)
[2016-06-18] MEDS ORDERED: POTASSIUM CHLORIDE 40 MEQ in SOD CHLORIDE 0.9% 250 ML IV* ONE (01:00)
[2016-06-18] MEDS: ACETAMINOPHEN 650 MG SUPP PR SCH ×4 (01:30→19:30)
[2016-06-18] MEDS ORDERED: CALCIUM GLUCONATE 10% 2 GM in SOD CHLORIDE 0.9% 100 ML IVPB ONE (01:30)
[2016-06-18] MEDS: ACETAMINOPHEN 650MG/20.3ML CUP PO SCH ×4 (01:31→19:30)
[2016-06-18 01:38] LABS: AADO2 Arterial 186.3 mmHg (7.0-24.0); Arterial Base Excess -5.9 mmol/L (-3.0-3); Arterial COHb 0.3 % (0.0-3.0); Arterial Fraction of Oxyhgb 97.6 % (93.0-99.0); Arterial HCO3 17.2 mmol/L (22.0-26.0); Arterial MetHb 0.2 % (0.0-1.5); Arterial Total Hemglobin 11.6 g/dl (12.0-18.0); Blood Gas Mean Airway Pressure 11; MODE VENT - AC
[2016-06-18] MEDS: IPRATROPIUM (HFA) 12.9 GM INHALER INH SCH ×6 (01:53→20:18)
[2016-06-18] MEDS: ALBUTEROL HFA 8 GM INHALER INH SCH ×6 (01:53→20:19)
[2016-06-18 01:58] LABS: MONOCYTE # 0.3 10^3/ul (0.3-0.9); NEUTROPHIL # 8.9 10^3/ul (1.6-7.5)
[2016-06-18] MEDS: VANCOMYCIN 1.5 GM in SOD CHLORIDE 0.9% 250 ML IVPB SCH ×2 (03:03→15:58)
[2016-06-18] MEDS: ARTIFICIAL TEARS 15 ML OPH BOTH EYES SCH ×3 (05:14→18:57)
[2016-06-18] MEDS: PIPER-TAZO 3.375 GM IV (PMX) 100 ML IVPB SCH ×3 (05:15→19:03)
[2016-06-18] MEDS: PANTOPRAZOLE 40 MG INJ IV SCH (05:15)
[2016-06-18] MEDS: OCULAR LUBRICANT 3.5 GM OPH OINT BOTH EYES SCH ×3 (05:15→18:57)
[2016-06-18 06:49] LABS: ADD SCAN DIFF NO
[2016-06-18 07:00] LABS: BASOPHILS % 0.1 % (0.0-2.0); EOSINOPHILS # 0.1 10^3/ul (0.0-0.5); EOSINOPHILS % 0.7 % (0.0-7.0); HEMATOCRIT 33.2 % (37.0-47.0); HEMOGLOBIN 11.9 g/dl (12.0-16.0); LYMPHOCYTES # 1.3 10^3/ul (0.8-2.9); LYMPHOCYTES % 13.1 % (15.0-51.0); MEAN CORPUSCULAR HEMOGLOBIN 31.7 pg (29.0-33.0); MEAN CORPUSCULAR HGB CONC 35.8 g/dl (32.0-37.0); MEAN CORPUSCULAR VOLUME 88.5 fl (82.0-101.0); MONOCYTE # 0.8 10^3/ul (0.3-0.9); MONOCYTES % 8.1 % (0.0-11.0); NEUTROPHIL # 7.5 10^3/ul (1.6-7.5); NEUTROPHILS % 77.6 % (39.0-77.0); PLATELET COUNT 136 10^3/UL (140-415); RED BLOOD COUNT 3.75 10^6/ul (4.20-5.40); RED CELL DISTRIBUTION WIDTH 12.8 % (11.5-14.5); WHITE BLOOD COUNT 9.6 10^3/ul (4.8-10.8)
[2016-06-18] MEDS: VECURONIUM 100 MG in DEXTROSE 5% 100 ML IV SCH (07:02)
[2016-06-18 07:09] LABS: POTASSIUM 3.1 mmol/L (3.5-5.1)
[2016-06-18 07:10] LABS: MAGNESIUM 1.6 mg/dl (1.7-2.5); PHOSPHORUS 3.3 mg/dl (2.5-4.9)
[2016-06-18 07:11] LABS: ALBUMIN/GLOBULIN RATIO 1.42; BILIRUBIN,INDIRECT 0.1 mg/dl (0-1.1); BILIRUBIN,TOTAL 0.1 mg/dl (0.2-1.3); CREATININE 0.47 mg/dl (0.44-1.00); TOTAL PROTEIN 5.1 g/dl (6.1-8.1)
[2016-06-18 07:12] LABS: CALCIUM 6.6 mg/dl (8.4-10.2)
[2016-06-18 07:53] LABS: AADO2 Arterial 115.6 mmHg (7.0-24.0); Arterial Base Excess -3.3 mmol/L (-3.0-3); Arterial COHb 0.3 % (0.0-3.0); Arterial Fraction of Oxyhgb 97.2 % (93.0-99.0); Arterial HCO3 20.6 mmol/L (22.0-26.0); Arterial MetHb 0.3 % (0.0-1.5); Arterial Total Hemglobin 12.3 g/dl (12.0-18.0); MODE VENT - AC
[2016-06-18] MEDS ORDERED: AMIODARONE 900 MG in DEXTROSE 5% 482 ML IV SCH (08:00)
--- NOTE | 2016-06-18 08:23 | RADRPT ---
PROCEDURE: XR Chest. CLINICAL INDICATION: Intubation TECHNIQUE: Single AP portable chest COMPARISON: 07/15/2016 FINDINGS: The cardiomediastinal silhouette is within normal limits of size . NG tube tip beyond the field of v iew with the side port overlying the body of the stomach. This is stable position compared to prior examination .The lungs are clear without pleural effusion or focal consolidation. No pneumothorax. The osseous structures and soft tissues are unremarkable. IMPRESSION: 1. No evidence for active cardiopulmonary disease. No support devices as discussed above. RPTAT:AAJJ Physician Walter Date Time Electronically viewed and signed by Physician Walter on 06/18/2016 08:23 LE/
[2016-06-18] MEDS ORDERED: MAGNESIUM SULFATE 2 GM/50 ML 50 ML IVPB ONE (08:30)
--- NOTE | 2016-06-18 08:58 | PN ---
Date/Time of Note Date/Time of Note DATE: 06/18/16 TIME: 08:46 Assessment/Plan VTE Prophylaxis VTE Prophylaxis Intervention: heparin Lines/Catheters IV C[facility]ter Type (from [facility]): Peripheral IV Urinary Cath still in place: Yes Reason Cath still needed: other (indicate) (intubated) Assessment/Plan Assessment/Plan 60 yo female with a past medical history of essential hypertension, depression who came in for Vfib arrest. 1. Vfib arrest - 2/2 severe hypokalemia + CAD * Questionable small distal left circumflex lesion, post balloon angioplasty of small vessel 2. VDRF 3. Metabolic acidosis - severe: resolved 4. Severe hypokalemia - Repleted 5. Bilateral pneumonia vs pneumonitis 6. Hyperglycemia: Stress Induced 7. Essential hypertension - stable for now 8. Chronic Depression 9. Cardiomyopathy with EF 40%, global hypokinesis, likely secondary to cardiac arrest PLAN: * Continue ICU monitoring and care * Continue rewarming * Continue Vent mgt * Continue IV abx * Replace Lytes / D/c Bicarb drip, should help with hyperglycemia * Monitor for hypoxic brain injury * Continue to follow cardiology recs and mgt PROPHYLAXIS: Heparin / PPI Prognosis remains guarded CRITICAL CARE TIME: >35 mins Subjective 24 Hr Interval Summary Free Text/Dictation * Patient seen and examined. * Nursing reports no acute overnight events. * Now on rewarming protocol * Family updated on plan of care, spoke with nursing Subjective hx not possible: pt non-verbal, pt critical status Exam/Review of Systems Vital Signs Vitals Vital Signs Date Time Temp Pulse Resp B/P Pulse Ox O2 Delivery O2 Flow Rate FiO2 06/18/16 08:15 93.8 65 20 142/71 100 06/18/16 05:29 35 06/17/16 03:31 Mechanical Ventilator Intake and Output 06/17/16 06/17/16 06/18/16 15:00 23:00 07:00 Intake Total 1567.843 ml 992.43 ml 150.08 ml Output Total 1882 ml 1350 ml 658 ml Balance -314.157 ml -357.57 ml -507.92 ml Exam Gen Juan: intubated sedated HEENT: hematoma left supraorbital region, PERRL, ETT in place NECK: supple, no thyromegaly THORAX: symmetrical, no obvious deformities CV: S1S2, Bradycardic Lungs: diminished breath sounds to the bases bilaterally, no wheezing or rhonchi Abd: soft, NT/ND, +BS, no rebound, no guarding, neg HSM EXT: no edema Neuro: sedated Psych: cannot assess Skin: C/D/I Results Result Diagram: 06/18/16 0630 06/18/16 0630 Results 24 hrs Laboratory Tests Test 06/17/16 09:47 06/17/16 10:30 06/17/16 11:39 06/17/16 12:09 Bedside Glucose 158 122 133 Activated Partial Thromboplast Time 28.5 Anion Gap 14 Basophils # 0.0 Basophils % 0.1 Blood Urea Nitrogen 16 Calcium Level 6.3 L Carbon Dioxide Level 23 Chloride Level 109 Creatinine 0.50 Eosinophils # 0.0 Eosinophils % 0.0 Fibrinogen 284.0 Glucose Level 134 Hematocrit 40.3 Hemoglobin 13.9 INR International Normalized Ratio 0.99 Lymphocytes # 1.2 Lymphocytes % 10.5 L Magnesium Level 1.4 L Mean Corpuscular Hemoglobin 31.1 Mean Corpuscular Hemoglobin Concent 34.5 Mean Corpuscular Volume 90.2 Mean Platelet Volume 10.4 Monocytes # 1.3 H Monocytes % 11.7 H Neutrophils # 8.7 H Neutrophils % 76.6 Nucleated Red Blood Cells # 0.0 Nucleated Red Blood Cells % 0.0 Phosphorus Level 1.4 #L Platelet Count 164 Potassium Level 2.4 *L Prothrombin Time 13.1 Prothrombin Time Ratio 1.0 Red Blood Count 4.47 Red Cell Distribution Width 12.7 Sodium Level 144 Troponin I 3.540 *H White Blood Count 11.4 #H Test 06/17/16 13:16 06/17/16 13:28 06/17/16 14:28 06/17/16 15:38 Bedside Glucose 113 119 117 Arterial Blood HCO3 20.1 L Arterial Blood Base Excess -4.1 L Arterial Blood Oxygen Saturation 98.8 H Kar Test N/A Arterial Blood Gas Puncture Site A-Line Arterial Blood Carboxyhemoglobin 0.3 Arterial Blood Date Drawn 06/17/2016 1:35:57 PM Arterial Blood Methemoglobin 0.2 Arterial Blood pCO2 (Temp correct) 28.5 L Arterial Blood pH (Temp corrected) 7.448 Arterial Blood pO2 (Temp corrected) 170.6 H Blood Gas A-a O2 Differential 158.8 H Blood Gas Actual Respiration Rate 20 Blood Gas Low PEEP Setting 5.0 Blood Gas Modality VENT - AC Blood Gas Notified Time 06/17/2016 1:44:58 PM Blood Gas Notified Whom JLD Blood Gas Respiration Rate 20.0 Blood Gas Specimen Source Blood arterial Blood Gas Temperature 32.7 Blood Gas Tidal Volume 500.0 FiO2 50.0 Oxyhemoglobin Percent 98.3 Total Hemoglobin 14.7 Test 06/17/16 16:23 06/17/16 17:32 06/17/16 18:29 06/17/16 18:45 Bedside Glucose 108 104 116 Activated Partial Thromboplast Time 33.1 Anion Gap 17 H Basophils # 0.0 Basophils % 0.2 Blood Urea Nitrogen 14 Calcium Level 6.9 L Carbon Dioxide Level 24 Chloride Level 104 Creatinine 0.47 Eosinophils # 0.0 Eosinophils % 0.2 Fibrinogen 285.0 Glucose Level 111 Hematocrit 37.9 Hemoglobin 13.5 INR International Normalized Ratio 0.99 Lymphocytes # 1.5 Lymphocytes % 13.0 L Magnesium Level 2.2 Mean Corpuscular Hemoglobin 31.5 Mean Corpuscular Hemoglobin Concent 35.6 Mean Corpuscular Volume 88.3 Mean Platelet Volume 10.8 H Monocytes # 1.0 H Monocytes % 8.8 Neutrophils # 9.0 H Neutrophils % 77.1 H Nucleated Red Blood Cells # 0.0 Nucleated Red Blood Cells % 0.0 Phosphorus Level 4.5 # Platelet Count 160 Potassium Level 2.7 *L Prothrombin Time 13.1 Prothrombin Time Ratio 1.0 Red Blood Count 4.29 Red Cell Distribution Width 12.6 Sodium Level 142 Troponin I 2.050 *H White Blood Count 11.7 H Test 06/17/16 19:28 06/17/16 19:41 06/17/16 20:36 06/17/16 21:48 Arterial Blood HCO3 20.0 L Arterial Blood Base Excess -3.9 L Arterial Blood Oxygen Saturation 98.6 H Kar Test ACCEPTAB Arterial Blood Gas Puncture Site A-Line Arterial Blood Carboxyhemoglobin 0.3 Arterial Blood Date Drawn 06/17/2016 9:15:37 PM Arterial Blood Methemoglobin 0.2 Arterial Blood pCO2 (Temp correct) 27.9 L Arterial Blood pH (Temp corrected) 7.456 H Arterial Blood pO2 (Temp corrected) 139.9 H Blood Gas A-a O2 Differential 189.9 H Blood Gas Actual Respiration Rate 20 Blood Gas Low PEEP Setting 5.0 Blood Gas Modality VENT - AC Blood Gas Notified Time 06/17/2016 9:28:30 PM Blood Gas Notified Whom SHIRLEY Blood Gas Respiration Rate 20.0 Blood Gas Specimen Source Blood arterial Blood Gas Temperature 32.9 Blood Gas Tidal Volume 500.0 FiO2 50.0 Oxyhemoglobin Percent 98.1 Total Hemoglobin 13.8 Bedside Glucose 110 116 126 Test 06/17/16 22:36 06/17/16 23:40 06/18/16 00:39 06/18/16 01:28 Bedside Glucose 133 128 121 Arterial Blood HCO3 17.2 L Arterial Blood Base Excess -5.9 L Arterial Blood Oxygen Saturation 98.1 H Kar Test N/A Arterial Blood Gas Puncture Site A-Line Arterial Blood Carboxyhemoglobin 0.3 Arterial Blood Date Drawn 06/18/2016 1:25:29 AM Arterial Blood Methemoglobin 0.2 Arterial Blood pCO2 (Temp correct) 26.8 L Arterial Blood pH (Temp corrected) 7.424 Arterial Blood pO2 (Temp corrected) 140.1 H Blood Gas A-a O2 Differential 186.3 H Blood Gas Actual Respiration Rate 20 Blood Gas Inspiratory Pressure 25.0 Blood Gas Low PEEP Setting 5.0 Blood Gas Mean Airway Pressure 11 Blood Gas Modality VENT - AC Blood Gas Notified Time 06/18/2016 1:38:27 AM Blood Gas Notified Whom MERCEDES BERGMAN Blood Gas Respiration Rate 20.0 Blood Gas Specimen Source Blood arterial Blood Gas Temperature 37.0 Blood Gas Tidal Volume 500.0 FiO2 50.0 Oxyhemoglobin Percent 97.6 Total Hemoglobin 11.6 L Test 06/18/16 01:29 06/18/16 02:35 06/18/16 03:41 06/18/16 04:29 Bedside Glucose 118 120 101 111 Test 06/18/16 05:34 06/18/16 06:30 06/18/16 06:46 06/18/16 07:28 Bedside Glucose 126 127 105 Alanine Aminotransferase (ALT/SGPT) 41 Albumin 3.0 L Albumin/Globulin Ratio 1.42 Alkaline Phosphatase 45 Anion Gap 15 Aspartate Amino Transf (AST/SGOT) 92 H Basophils # 0.0 Basophils % 0.1 Blood Urea Nitrogen 10 Calcium Level 6.6 L Carbon Dioxide Level 24 Chloride Level 104 Creatinine 0.47 Direct Bilirubin 0.00 Eosinophils # 0.1 Eosinophils % 0.7 Fibrinogen 291.0 Globulin 2.10 Glucose Level 105 Hematocrit 33.2 L Hemoglobin 11.9 L Indirect Bilirubin 0.1 Lymphocytes # 1.3 Lymphocytes % 13.1 L Magnesium Level 1.6 L Mean Corpuscular Hemoglobin 31.7 Mean Corpuscular Hemoglobin Concent 35.8 Mean Corpuscular Volume 88.5 Mean Platelet Volume 11.0 H Monocytes # 0.8 Monocytes % 8.1 Neutrophils # 7.5 Neutrophils % 77.6 H Nucleated Red Blood Cells # 0.0 Nucleated Red Blood Cells % 0.0 Phosphorus Level 3.3 Platelet Count 136 L Potassium Level 3.1 L Red Blood Count 3.75 L Red Cell Distribution Width 12.8 Sodium Level 140 Total Bilirubin 0.1 L Total Protein 5.1 #L Troponin I 1.100 *H White Blood Count 9.6 Arterial Blood HCO3 20.6 L Arterial Blood Base Excess -3.3 L Arterial Blood Oxygen Saturation 97.8 Kar Test N/A Arterial Blood Gas Puncture Site A-Line Arterial Blood Carboxyhemoglobin 0.3 Arterial Blood Date Drawn 06/18/2016 7:33:34 AM Arterial Blood Methemoglobin 0.3 Arterial Blood pCO2 (Temp correct) 29.2 L Arterial Blood pH (Temp corrected) 7.453 H Arterial Blood pO2 (Temp corrected) 102.5 H Blood Gas A-a O2 Differential 115.6 H Blood Gas Actual Respiration Rate 20 Blood Gas Low PEEP Setting 5.0 Blood Gas Modality VENT - AC Blood Gas Notified Time 06/18/2016 7:53:32 AM Blood Gas Notified Whom JLD Blood Gas Respiration Rate 20.0 Blood Gas Specimen Source Blood arterial Blood Gas Temperature 34.0 Blood Gas Tidal Volume 500.0 FiO2 35.0 Oxyhemoglobin Percent 97.2 Total Hemoglobin 12.3 Test 06/18/16 07:54 Bedside Glucose 99 Medications Medications Current Medications Aspirin (Aspirin) 81 mg DAILY NGT ; Start 06/17/16 at 09:00 Clopidogrel Bisulfate (plaVIX) 75 mg DAILY NGT ; Start 06/17/16 at 09:00 Atorvastatin Calcium 80 mg 80 mg HS NGT Last administered on 06/17/16 21:05; Admin Dose 80 MG; Start 06/17/16 at 21:00 Sodium Chloride (NS) 1,000 ml @ 50 mls/hr Q20H IV Last administered on 21:05; Admin Dose 50 MLS/HR; Start 06/17/16 at 01:28 Ondansetron HCl (Zofran Inj) 4 mg Q6H PRN IV NAUSEA AND/OR VOMITING; Start at 01:30 Nitroglycerin (Nitroglycerin (Sl Tab) 0.4 Mg) 1 tab Q5M PRN SL CHEST PAIN; Start 06/17/16 at 01:30 Acetaminophen (Tylenol Supp) 650 mg Q4H PRN HI PAIN LEVEL 1-3 OR FEVER; Start 06/17/16 at 01:30 Lorazepam (Ativan) 1 mg Q2H PRN IV ANXIETY; Start 06/17/16 at 01:30 Bisacodyl (Dulcolax Supp) 10 mg DAILY PRN HI CONSTIPATION; Start 06/17/16 at 01 :30 Pantoprazole (Protonix Iv) 40 mg DAILY@06 IV Last administered on 06/18/16 05: 15; Admin Dose 40 MG; Start 06/17/16 at 06:00 Acetaminophen (Tylenol Supp) 650 mg Q4H PRN HI TEMP > 37C; Start 06/17/16 at 01 :30 Acetaminophen (Tylenol Liquid) 650 mg Q4H PRN PO TEMP > 37C; Start 06/17/16 at 01:30 Acetaminophen (Tylenol Supp) 500 mg Q6H HI ; Start 06/18/16 at 01:30 Acetaminophen (Tylenol Liquid) 500 mg Q6H PO Last administered on 06/18/16 01: 31; Admin Dose 500 MG; Start 06/18/16 at 01:30 Meperidine HCl (Demerol) 12.5 mg Q4H PRN IV POST OPERATIVE SHIVERING; Start at 01:30 Meperidine HCl (Demerol) 25 mg Q4H PRN IV POST OPERATIVE SHIVERING; Start 06/17 at 01:30 Eye Lubricant (Akwa Oint) 1 applic Q6 BOTH EYES Last administered on 06/18/16 05:15; Admin Dose 1 APPLIC; Start 06/17/16 at 06:00 Eye Lubricant (Artificial Tears Oph) 2 drop Q6 BOTH EYES Last administered on 05:14; Admin Dose 2 DROP; Start 06/17/16 at 06:00 Diagnostic Test (Pha) (Accucheck) 1 ea Q1H XX Last administered on 06/18/16 06 :47; Admin Dose 1 EA; Start 06/17/16 at 01:30 Dextrose (D50w Syringe) 25 ml Q15M PRN IV Till BS 80 mg/dL or above x2; Start 06/17/16 at 01:30 Dextrose 50 ml 50 ml Q15M PRN IV Till BS 80 mg/dL or above x2; Start 06/17/16 at 01:30 Sodium Bicarbonate 150 meq/Dextrose 1,000 ml @ 50 mls/hr Q20H IV Last administered on 06/17/16 21:07; Admin Dose 50 MLS/HR; Start 06/17/16 at 02:00 Piperacillin Sod/ Tazobactam Sod 100 ml @ 200 mls/hr Q6 IVPB Last administered on 06/18/16 05:15; Admin Dose 200 MLS/HR; Start 06/17/16 at 06:00 Vecuronium Chaplin 100 mg/ Dextrose 100 ml @ 5.22 mls/hr TITRATE IV Last administered on 06/18/16 07:02; Admin Dose 6.27 MLS/HR; Start 06/17/16 at 03:00 Vancomycin HCl/ Sodium Chloride (Vancocin/NS) 250 ml @ 83.333 mls/ hr Q12H IVPB Last administered on 06/18/16 03:03; Admin Dose 83.333 MLS/HR; Start at 15:00 Miscellaneous Information (*Rx Drug Level Order Reminder*) 1 ONCE ONCE XX ; Start 06/18/16 at 14:00; Stop 06/18/16 at 14:01 Valsartan (Diovan) 160 mg DAILY NGT Last administered on 06/17/16 23:28; Admin Dose 160 MG; Start 06/17/16 at 20:30 Metoprolol Tartrate 25 mg 25 mg BID NGT ; Start 06/17/16 at 21:00 Amiodarone HCl 900 mg/Dextrose 500 ml @ 0 mls/hr Q0M IV ; Start 06/18/16 at 08: 00 Potassium Chloride 20 meq/ Sodium Chloride 110 ml @ 55 mls/hr ONCE ONCE IVPB ; Start 06/18/16 at 09:00; Stop 06/18/16 at 10:59 Magnesium Sulfate (Magnesium Sulfate 2 Gm/50 ml) 50 ml @ 25 mls/hr ONCE ONCE IVPB ; Start 06/18/16 at 08:30; Stop 06/18/16 at 10:29 LOREN HONG Jun 18, 2016 08:57
[2016-06-18] MEDS ORDERED: POTASSIUM CHLORIDE 20 MEQ in SOD CHLORIDE 0.9% 100 ML IVPB ONE (09:00)
[2016-06-18] MEDS: CLOPIDOGREL 75 MG TAB NGT SCH (09:19)
[2016-06-18] MEDS: METOPROLOL 25 MG TAB NGT SCH ×2 (09:19→21:14)
[2016-06-18] MEDS: ASPIRIN 81 MG TAB NGT SCH (09:19)
[2016-06-18] MEDS: SOD CHLORIDE 0.9% 1,000 ML IV SCH ×2 (09:25→17:28)
[2016-06-18] MEDS ORDERED: CALCIUM GLUCONATE 10% 1 GM in SOD CHLORIDE 0.9% 100 ML IVPB ONE (10:00)
--- NOTE | 2016-06-18 10:02 | CONS ---
Date/Time of Note Date/Time of Note DATE: 06/18/16 TIME: 09:58 Assessment/Plan Assessment/Plan Additional Assessment/Plan Ventilator settings; AC of 20, tidal volume 500, PEEP of 5, 35% FiO2. Next Chest x-ray was reviewed from today which is essentially clear. Assessment and recommendations; next 1. Patient admitted with cardiac arrest, underwent prolonged CPR. Currently being weaned off hypothermia protocol. 2. Some element of aspiration pneumonia. However chest x-ray from today is essentially unremarkable. 3. History of hypertension. Next 4. History of hepatitis C. Continue to rewarm the patient. Was a patient is off hypothermia protocol her mental status to be evaluated. Weaning from ventilator will depend upon adequate mental status recovery. At this time it is very difficult to ascertain the degree of hypoxic brain injury if any. His current supportive care. Consultation Date/Type/Reason Admit Date/Time Jun 17, 2016 at 01:43 Initial Consult Date 06/17/16 Type of Consultation: Pulmonary/critical Referring Provider: SAM DOHERTY MD 24 HR Interval Summary Free Text/Dictation Patient's condition remains critical. Still requiring full ventilator support owing to ongoing paralysis. Patient always been weaned off hypothermia protocol. No hemodynamic instability noted. General examination; middle-aged woman, or intubated, sedated and paralyzed. Exam/Review of Systems Vital Signs Vitals Vital Signs Date Time Temp Pulse Resp B/P Pulse Ox O2 Delivery O2 Flow Rate FiO2 06/18/16 09:06 72 20 100 35 06/18/16 09:00 94.1 126/64 06/17/16 03:31 Mechanical Ventilator Intake and Output 06/17/16 06/17/16 06/18/16 15:00 23:00 07:00 Intake Total 1567.843 ml 992.43 ml 125.08 ml Output Total 1882 ml 1350 ml 658 ml Balance -314.157 ml -357.57 ml -532.92 ml Exam H EENT examination; supple neck, no JVD. No lymphadenopathy. Midline trachea. Orally intubated. There is crusting of blood around the lips. Without any active bleed. Small bilaterally. No neck masses. No thyromegaly. Chest examination; clear to auscultation bilaterally. S1-S2 audible, no murmurs. Regular rhythm. Abdomen examination; soft, nondistended. Bowel sounds are sluggish. No organomegaly. Extremity examination; no peripheral edema. Also 1+ bilaterally. TAXATION ACCOUNTANT examination; patient is sedated and paralyzed. Results Result Diagram: 06/18/16 0630 06/18/16 0630 Results 24 hrs Laboratory Tests Test 06/17/16 10:30 06/17/16 11:39 06/17/16 12:09 06/17/16 13:16 Bedside Glucose 122 133 113 Activated Partial Thromboplast Time 28.5 Anion Gap 14 Basophils # 0.0 Basophils % 0.1 Blood Urea Nitrogen 16 Calcium Level 6.3 L Carbon Dioxide Level 23 Chloride Level 109 Creatinine 0.50 Eosinophils # 0.0 Eosinophils % 0.0 Fibrinogen 284.0 Glucose Level 134 Hematocrit 40.3 Hemoglobin 13.9 INR International Normalized Ratio 0.99 Lymphocytes # 1.2 Lymphocytes % 10.5 L Magnesium Level 1.4 L Mean Corpuscular Hemoglobin 31.1 Mean Corpuscular Hemoglobin Concent 34.5 Mean Corpuscular Volume 90.2 Mean Platelet Volume 10.4 Monocytes # 1.3 H Monocytes % 11.7 H Neutrophils # 8.7 H Neutrophils % 76.6 Nucleated Red Blood Cells # 0.0 Nucleated Red Blood Cells % 0.0 Phosphorus Level 1.4 #L Platelet Count 164 Potassium Level 2.4 *L Prothrombin Time 13.1 Prothrombin Time Ratio 1.0 Red Blood Count 4.47 Red Cell Distribution Width 12.7 Sodium Level 144 Troponin I 3.540 *H White Blood Count 11.4 #H Test 06/17/16 13:28 06/17/16 14:28 06/17/16 15:38 06/17/16 16:23 Arterial Blood HCO3 20.1 L Arterial Blood Base Excess -4.1 L Arterial Blood Oxygen Saturation 98.8 H Kar Test N/A Arterial Blood Gas Puncture Site A-Line Arterial Blood Carboxyhemoglobin 0.3 Arterial Blood Date Drawn 06/17/2016 1:35:57 PM Arterial Blood Methemoglobin 0.2 Arterial Blood pCO2 (Temp correct) 28.5 L Arterial Blood pH (Temp corrected) 7.448 Arterial Blood pO2 (Temp corrected) 170.6 H Blood Gas A-a O2 Differential 158.8 H Blood Gas Actual Respiration Rate 20 Blood Gas Low PEEP Setting 5.0 Blood Gas Modality VENT - AC Blood Gas Notified Time 06/17/2016 1:44:58 PM Blood Gas Notified Whom JLD Blood Gas Respiration Rate 20.0 Blood Gas Specimen Source Blood arterial Blood Gas Temperature 32.7 Blood Gas Tidal Volume 500.0 FiO2 50.0 Oxyhemoglobin Percent 98.3 Total Hemoglobin 14.7 Bedside Glucose 119 117 108 Test 06/17/16 17:32 06/17/16 18:29 06/17/16 18:45 06/17/16 19:28 Bedside Glucose 104 116 Activated Partial Thromboplast Time 33.1 Anion Gap 17 H Basophils # 0.0 Basophils % 0.2 Blood Urea Nitrogen 14 Calcium Level 6.9 L Carbon Dioxide Level 24 Chloride Level 104 Creatinine 0.47 Eosinophils # 0.0 Eosinophils % 0.2 Fibrinogen 285.0 Glucose Level 111 Hematocrit 37.9 Hemoglobin 13.5 INR International Normalized Ratio 0.99 Lymphocytes # 1.5 Lymphocytes % 13.0 L Magnesium Level 2.2 Mean Corpuscular Hemoglobin 31.5 Mean Corpuscular Hemoglobin Concent 35.6 Mean Corpuscular Volume 88.3 Mean Platelet Volume 10.8 H Monocytes # 1.0 H Monocytes % 8.8 Neutrophils # 9.0 H Neutrophils % 77.1 H Nucleated Red Blood Cells # 0.0 Nucleated Red Blood Cells % 0.0 Phosphorus Level 4.5 # Platelet Count 160 Potassium Level 2.7 *L Prothrombin Time 13.1 Prothrombin Time Ratio 1.0 Red Blood Count 4.29 Red Cell Distribution Width 12.6 Sodium Level 142 Troponin I 2.050 *H White Blood Count 11.7 H Arterial Blood HCO3 20.0 L Arterial Blood Base Excess -3.9 L Arterial Blood Oxygen Saturation 98.6 H Kar Test ACCEPTAB Arterial Blood Gas Puncture Site A-Line Arterial Blood Carboxyhemoglobin 0.3 Arterial Blood Date Drawn 06/17/2016 9:15:37 PM Arterial Blood Methemoglobin 0.2 Arterial Blood pCO2 (Temp correct) 27.9 L Arterial Blood pH (Temp corrected) 7.456 H Arterial Blood pO2 (Temp corrected) 139.9 H Blood Gas A-a O2 Differential 189.9 H Blood Gas Actual Respiration Rate 20 Blood Gas Low PEEP Setting 5.0 Blood Gas Modality VENT - AC Blood Gas Notified Time 06/17/2016 9:28:30 PM Blood Gas Notified Whom MA Blood Gas Respiration Rate 20.0 Blood Gas Specimen Source Blood arterial Blood Gas Temperature 32.9 Blood Gas Tidal Volume 500.0 FiO2 50.0 Oxyhemoglobin Percent 98.1 Total Hemoglobin 13.8 Test 06/17/16 19:41 06/17/16 20:36 06/17/16 21:48 06/17/16 22:36 Bedside Glucose 110 116 126 133 Test 06/17/16 23:40 06/18/16 00:39 06/18/16 01:28 06/18/16 01:29 Bedside Glucose 128 121 118 Arterial Blood HCO3 17.2 L Arterial Blood Base Excess -5.9 L Arterial Blood Oxygen Saturation 98.1 H Kar Test N/A Arterial Blood Gas Puncture Site A-Line Arterial Blood Carboxyhemoglobin 0.3 Arterial Blood Date Drawn 06/18/2016 1:25:29 AM Arterial Blood Methemoglobin 0.2 Arterial Blood pCO2 (Temp correct) 26.8 L Arterial Blood pH (Temp corrected) 7.424 Arterial Blood pO2 (Temp corrected) 140.1 H Blood Gas A-a O2 Differential 186.3 H Blood Gas Actual Respiration Rate 20 Blood Gas Inspiratory Pressure 25.0 Blood Gas Low PEEP Setting 5.0 Blood Gas Mean Airway Pressure 11 Blood Gas Modality VENT - AC Blood Gas Notified Time 06/18/2016 1:38:27 AM Blood Gas Notified Whom [employer] Blood Gas Respiration Rate 20.0 Blood Gas Specimen Source Blood arterial Blood Gas Temperature 37.0 Blood Gas Tidal Volume 500.0 FiO2 50.0 Oxyhemoglobin Percent 97.6 Total Hemoglobin 11.6 L Test 06/18/16 02:35 06/18/16 03:41 06/18/16 04:29 06/18/16 05:34 Bedside Glucose 120 101 111 126 Test 06/18/16 06:30 06/18/16 06:46 06/18/16 07:28 06/18/16 07:54 Alanine Aminotransferase (ALT/SGPT) 41 Albumin 3.0 L Albumin/Globulin Ratio 1.42 Alkaline Phosphatase 45 Anion Gap 15 Aspartate Amino Transf (AST/SGOT) 92 H Basophils # 0.0 Basophils % 0.1 Bedside Glucose 127 105 99 Blood Urea Nitrogen 10 Calcium Level 6.6 L Carbon Dioxide Level 24 Chloride Level 104 Creatinine 0.47 Direct Bilirubin 0.00 Eosinophils # 0.1 Eosinophils % 0.7 Fibrinogen 291.0 Globulin 2.10 Glucose Level 105 Hematocrit 33.2 L Hemoglobin 11.9 L Indirect Bilirubin 0.1 Lymphocytes # 1.3 Lymphocytes % 13.1 L Magnesium Level 1.6 L Mean Corpuscular Hemoglobin 31.7 Mean Corpuscular Hemoglobin Concent 35.8 Mean Corpuscular Volume 88.5 Mean Platelet Volume 11.0 H Monocytes # 0.8 Monocytes % 8.1 Neutrophils # 7.5 Neutrophils % 77.6 H Nucleated Red Blood Cells # 0.0 Nucleated Red Blood Cells % 0.0 Phosphorus Level 3.3 Platelet Count 136 L Potassium Level 3.1 L Red Blood Count 3.75 L Red Cell Distribution Width 12.8 Sodium Level 140 Total Bilirubin 0.1 L Total Protein 5.1 #L Troponin I 1.100 *H White Blood Count 9.6 Arterial Blood HCO3 20.6 L Arterial Blood Base Excess -3.3 L Arterial Blood Oxygen Saturation 97.8 Kar Test N/A Arterial Blood Gas Puncture Site A-Line Arterial Blood Carboxyhemoglobin 0.3 Arterial Blood Date Drawn 06/18/2016 7:33:34 AM Arterial Blood Methemoglobin 0.3 Arterial Blood pCO2 (Temp correct) 29.2 L Arterial Blood pH (Temp corrected) 7.453 H Arterial Blood pO2 (Temp corrected) 102.5 H Blood Gas A-a O2 Differential 115.6 H Blood Gas Actual Respiration Rate 20 Blood Gas Low PEEP Setting 5.0 Blood Gas Modality VENT - AC Blood Gas Notified Time 06/18/2016 7:53:32 AM Blood Gas Notified Whom JLD Blood Gas Respiration Rate 20.0 Blood Gas Specimen Source Blood arterial Blood Gas Temperature 34.0 Blood Gas Tidal Volume 500.0 FiO2 35.0 Oxyhemoglobin Percent 97.2 Total Hemoglobin 12.3 Test 06/18/16 08:37 06/18/16 09:28 Bedside Glucose 97 95 Medications Medications Current Medications Aspirin (Aspirin) 81 mg DAILY NGT Last administered on 06/18/16 09:19; Admin Dose 81 MG; Start 06/17/16 at 09:00 Clopidogrel Bisulfate (plaVIX) 75 mg DAILY NGT Last administered on 06/18/16 09:19; Admin Dose 75 MG; Start 06/17/16 at 09:00 Atorvastatin Calcium 80 mg 80 mg HS NGT Last administered on 06/17/16 21:05; Admin Dose 80 MG; Start 06/17/16 at 21:00 Sodium Chloride (NS) 1,000 ml @ 50 mls/hr Q20H IV Last administered on 21:05; Admin Dose 50 MLS/HR; Start 06/17/16 at 01:28 Ondansetron HCl (Zofran Inj) 4 mg Q6H PRN IV NAUSEA AND/OR VOMITING; Start at 01:30 Nitroglycerin (Nitroglycerin (Sl Tab) 0.4 Mg) 1 tab Q5M PRN SL CHEST PAIN; Start 06/17/16 at 01:30 Acetaminophen (Tylenol Supp) 650 mg Q4H PRN [place] PAIN LEVEL 1-3 OR FEVER; Start 06/17/16 at 01:30 Lorazepam (Ativan) 1 mg Q2H PRN IV ANXIETY; Start 06/17/16 at 01:30 Bisacodyl (Dulcolax Supp) 10 mg DAILY PRN [place] CONSTIPATION; Start 06/17/16 at 01 :30 Pantoprazole (Protonix Iv) 40 mg DAILY@06 IV Last administered on 06/18/16 05: 15; Admin Dose 40 MG; Start 06/17/16 at 06:00 Acetaminophen (Tylenol Supp) 650 mg Q4H PRN [place] TEMP > 37C; Start 06/17/16 at 01 :30 Acetaminophen (Tylenol Liquid) 650 mg Q4H PRN PO TEMP > 37C; Start 06/17/16 at 01:30 Acetaminophen (Tylenol Supp) 500 mg Q6H [place] ; Start 06/18/16 at 01:30 Acetaminophen (Tylenol Liquid) 500 mg Q6H PO Last administered on 06/18/16 09: 19; Admin Dose 500 MG; Start 06/18/16 at 01:30 Meperidine HCl (Demerol) 12.5 mg Q4H PRN IV POST OPERATIVE SHIVERING; Start at 01:30 Meperidine HCl (Demerol) 25 mg Q4H PRN IV POST OPERATIVE SHIVERING; Start 06/17 at 01:30 Eye Lubricant (Akwa Oint) 1 applic Q6 BOTH EYES Last administered on 06/18/16 05:15; Admin Dose 1 APPLIC; Start 06/17/16 at 06:00 Eye Lubricant (Artificial Tears Oph) 2 drop Q6 BOTH EYES Last administered on 05:14; Admin Dose 2 DROP; Start 06/17/16 at 06:00 Diagnostic Test (Pha) (Accucheck) 1 ea Q1H XX Last administered on 06/18/16 09 :32; Admin Dose 1 EA; Start 06/17/16 at 01:30 Dextrose (D50w Syringe) 25 ml Q15M PRN IV Till BS 80 mg/dL or above x2; Start 06/17/16 at 01:30 Dextrose 50 ml 50 ml Q15M PRN IV Till BS 80 mg/dL or above x2; Start 06/17/16 at 01:30 Piperacillin Sod/ Tazobactam Sod 100 ml @ 200 mls/hr Q6 IVPB Last administered on 06/18/16 05:15; Admin Dose 200 MLS/HR; Start 06/17/16 at 06:00 Vecuronium [place] 100 mg/ Dextrose 100 ml @ 5.22 mls/hr TITRATE IV Last administered on 06/18/16 07:02; Admin Dose 6.27 MLS/HR; Start 06/17/16 at 03:00 Vancomycin HCl/ Sodium Chloride (Vancocin/NS) 250 ml @ 83.333 mls/ hr Q12H IVPB Last administered on 06/18/16 03:03; Admin Dose 83.333 MLS/HR; Start at 15:00 Miscellaneous Information (*Rx Drug Level Order Reminder*) 1 ONCE ONCE XX ; Start 06/18/16 at 14:00; Stop 06/18/16 at 14:01 Valsartan (Diovan) 160 mg DAILY NGT Last administered on 06/17/16 23:28; Admin Dose 160 MG; Start 06/17/16 at 20:30 Metoprolol Tartrate 25 mg 25 mg BID NGT Last administered on 06/18/16 09:19; Admin Dose 25 MG; Start 06/17/16 at 21:00 Amiodarone HCl 900 mg/Dextrose 500 ml @ 0 mls/hr Q0M IV ; Start 06/18/16 at 08: 00 Potassium Chloride 20 meq/ Sodium Chloride 110 ml @ 55 mls/hr ONCE ONCE IVPB Last administered on 06/18/16 09:41; Admin Dose 55 MLS/HR; Start 06/18/16 at 09 :00; Stop 06/18/16 at 10:59 Magnesium Sulfate 50 ml @ 25 mls/hr ONCE ONCE IVPB Last administered on 08:56; Admin Dose 25 MLS/HR; Start 06/18/16 at 08:30; Stop 06/18/16 at 10: 29 Sodium Chloride 1,000 ml @ 50 mls/hr Q20H IV Last administered on 06/18/16 09 :25; Admin Dose 50 MLS/HR; Start 06/18/16 at 09:00 Calcium Gluconate/ Sodium Chloride (Ca Gluc/NS) 110 ml @ 110 mls/hr ONCE ONCE IVPB ; Start 06/18/16 at 10:00; Stop 06/18/16 at 10:59 GIOVANNI NAVARRETE Jun 18, 2016 10:02
[2016-06-18] MEDS: PROPOFOL 100 ML IV SCH ×2 (10:07→16:10)
--- NOTE | 2016-06-18 12:51 | PN ---
Date/Time of Note Date/Time of Note DATE: 06/18/16 TIME: 12:47 Assessment/Plan VTE Prophylaxis VTE Prophylaxis Intervention: SCD's Lines/Catheters IV Catheter Type (from Nrsg): Peripheral IV Urinary Cath still in place: Yes Reason Cath still needed: other (indicate) (intubated) Assessment/Plan Chief Complaint/Hosp Course 60 yo with witnessed vf arrest and ekg showing st elevations in inferior leads. Problems: Assessment/Plan VF arrest likely secondary to profound hypokalemia Questionable small distal left circumflex lesion, post balloon angioplasty of small vessel Cardiomyopathy with EF 40%, global hypokinesis, likely secondary to cardiac arrest Hypokalemia, hypocalcemia Prolonged QTc on EKG due to electrolyte abnormalities Hypertension Recommendations: Continue asa, clopidogrel, and statin for treatment of possible small acute coronary occlusion Replete electrolytes, Mg, K, Ca Continue valsartan and metoprolol for cardiomyopathy and blood pressure control Can stop amiodarone drip Subjective 24 Hr Interval Summary Free Text/Dictation Patient remains intubated. Rewarming process has begun, electrolytes continue to be replaced, K up to 3.1 this morning. Subjective hx not possible: pt non-verbal Exam/Review of Systems Vital Signs Vitals Vital Signs Date Time Temp Pulse Resp B/P Pulse Ox O2 Delivery O2 Flow Rate FiO2 06/18/16 12:15 56 15 140/75 100 06/18/16 12:00 95.4 06/18/16 11:30 35 06/17/16 03:31 Mechanical Ventilator Intake and Output 06/17/16 06/17/16 06/18/16 15:00 23:00 07:00 Intake Total 1567.843 ml 992.43 ml 125.08 ml Output Total 1882 ml 1350 ml 658 ml Balance -314.157 ml -357.57 ml -532.92 ml Exam Constitutional: non-verbal Head: normocephalic ENMT: intubated Neck: No bruits, No jvd Respiratory: clear to auscultation Cardiovascular: regular rate and rhythm, No murmurs/extra sounds Gastrointestinal: soft Extremities: No edema Skin: nl turgor Results Result Diagram: 06/18/16 0630 06/18/16 0630 Results 24 hrs Laboratory Tests Test 06/17/16 13:16 06/17/16 13:28 06/17/16 14:28 06/17/16 15:38 Bedside Glucose 113 119 117 Arterial Blood HCO3 20.1 L Arterial Blood Base Excess -4.1 L Arterial Blood Oxygen Saturation 98.8 H Kar Test N/A Arterial Blood Gas Puncture Site A-Line Arterial Blood Carboxyhemoglobin 0.3 Arterial Blood Date Drawn 06/17/2016 1:35:57 PM Arterial Blood Methemoglobin 0.2 Arterial Blood pCO2 (Temp correct) 28.5 L Arterial Blood pH (Temp corrected) 7.448 Arterial Blood pO2 (Temp corrected) 170.6 H Blood Gas A-a O2 Differential 158.8 H Blood Gas Actual Respiration Rate 20 Blood Gas Low PEEP Setting 5.0 Blood Gas Modality VENT - AC Blood Gas Notified Time 06/17/2016 1:44:58 PM Blood Gas Notified Whom JLD Blood Gas Respiration Rate 20.0 Blood Gas Specimen Source Blood arterial Blood Gas Temperature 32.7 Blood Gas Tidal Volume 500.0 FiO2 50.0 Oxyhemoglobin Percent 98.3 Total Hemoglobin 14.7 Test 06/17/16 16:23 06/17/16 17:32 06/17/16 18:29 06/17/16 18:45 Bedside Glucose 108 104 116 Activated Partial Thromboplast Time 33.1 Anion Gap 17 H Basophils # 0.0 Basophils % 0.2 Blood Urea Nitrogen 14 Calcium Level 6.9 L Carbon Dioxide Level 24 Chloride Level 104 Creatinine 0.47 Eosinophils # 0.0 Eosinophils % 0.2 Fibrinogen 285.0 Glucose Level 111 Hematocrit 37.9 Hemoglobin 13.5 INR International Normalized Ratio 0.99 Lymphocytes # 1.5 Lymphocytes % 13.0 L Magnesium Level 2.2 Mean Corpuscular Hemoglobin 31.5 Mean Corpuscular Hemoglobin Concent 35.6 Mean Corpuscular Volume 88.3 Mean Platelet Volume 10.8 H Monocytes # 1.0 H Monocytes % 8.8 Neutrophils # 9.0 H Neutrophils % 77.1 H Nucleated Red Blood Cells # 0.0 Nucleated Red Blood Cells % 0.0 Phosphorus Level 4.5 # Platelet Count 160 Potassium Level 2.7 *L Prothrombin Time 13.1 Prothrombin Time Ratio 1.0 Red Blood Count 4.29 Red Cell Distribution Width 12.6 Sodium Level 142 Troponin I 2.050 *H White Blood Count 11.7 H Test 06/17/16 19:28 06/17/16 19:41 06/17/16 20:36 06/17/16 21:48 Arterial Blood HCO3 20.0 L Arterial Blood Base Excess -3.9 L Arterial Blood Oxygen Saturation 98.6 H Kar Test ACCEPTAB Arterial Blood Gas Puncture Site A-Line Arterial Blood Carboxyhemoglobin 0.3 Arterial Blood Date Drawn 06/17/2016 9:15:37 PM Arterial Blood Methemoglobin 0.2 Arterial Blood pCO2 (Temp correct) 27.9 L Arterial Blood pH (Temp corrected) 7.456 H Arterial Blood pO2 (Temp corrected) 139.9 H Blood Gas A-a O2 Differential 189.9 H Blood Gas Actual Respiration Rate 20 Blood Gas Low PEEP Setting 5.0 Blood Gas Modality VENT - AC Blood Gas Notified Time 06/17/2016 9:28:30 PM Blood Gas Notified Whom SHIRLEY Blood Gas Respiration Rate 20.0 Blood Gas Specimen Source Blood arterial Blood Gas Temperature 32.9 Blood Gas Tidal Volume 500.0 FiO2 50.0 Oxyhemoglobin Percent 98.1 Total Hemoglobin 13.8 Bedside Glucose 110 116 126 Test 06/17/16 22:36 06/17/16 23:40 06/18/16 00:39 06/18/16 01:28 Bedside Glucose 133 128 121 Arterial Blood HCO3 17.2 L Arterial Blood Base Excess -5.9 L Arterial Blood Oxygen Saturation 98.1 H Kar Test N/A Arterial Blood Gas Puncture Site A-Line Arterial Blood Carboxyhemoglobin 0.3 Arterial Blood Date Drawn 06/18/2016 1:25:29 AM Arterial Blood Methemoglobin 0.2 Arterial Blood pCO2 (Temp correct) 26.8 L Arterial Blood pH (Temp corrected) 7.424 Arterial Blood pO2 (Temp corrected) 140.1 H Blood Gas A-a O2 Differential 186.3 H Blood Gas Actual Respiration Rate 20 Blood Gas Inspiratory Pressure 25.0 Blood Gas Low PEEP Setting 5.0 Blood Gas Mean Airway Pressure 11 Blood Gas Modality VENT - AC Blood Gas Notified Time 06/18/2016 1:38:27 AM Blood Gas Notified Whom [employer] Blood Gas Respiration Rate 20.0 Blood Gas Specimen Source Blood arterial Blood Gas Temperature 37.0 Blood Gas Tidal Volume 500.0 FiO2 50.0 Oxyhemoglobin Percent 97.6 Total Hemoglobin 11.6 L Test 06/18/16 01:29 06/18/16 02:35 06/18/16 03:41 06/18/16 04:29 Bedside Glucose 118 120 101 111 Test 06/18/16 05:34 06/18/16 06:30 06/18/16 06:46 06/18/16 07:28 Bedside Glucose 126 127 105 Alanine Aminotransferase (ALT/SGPT) 41 Albumin 3.0 L Albumin/Globulin Ratio 1.42 Alkaline Phosphatase 45 Anion Gap 15 Aspartate Amino Transf (AST/SGOT) 92 H Basophils # 0.0 Basophils % 0.1 Blood Urea Nitrogen 10 Calcium Level 6.6 L Carbon Dioxide Level 24 Chloride Level 104 Creatinine 0.47 Direct Bilirubin 0.00 Eosinophils # 0.1 Eosinophils % 0.7 Fibrinogen 291.0 Globulin 2.10 Glucose Level 105 Hematocrit 33.2 L Hemoglobin 11.9 L Indirect Bilirubin 0.1 Lymphocytes # 1.3 Lymphocytes % 13.1 L Magnesium Level 1.6 L Mean Corpuscular Hemoglobin 31.7 Mean Corpuscular Hemoglobin Concent 35.8 Mean Corpuscular Volume 88.5 Mean Platelet Volume 11.0 H Monocytes # 0.8 Monocytes % 8.1 Neutrophils # 7.5 Neutrophils % 77.6 H Nucleated Red Blood Cells # 0.0 Nucleated Red Blood Cells % 0.0 Phosphorus Level 3.3 Platelet Count 136 L Potassium Level 3.1 L Red Blood Count 3.75 L Red Cell Distribution Width 12.8 Sodium Level 140 Total Bilirubin 0.1 L Total Protein 5.1 #L Troponin I 1.100 *H White Blood Count 9.6 Arterial Blood HCO3 20.6 L Arterial Blood Base Excess -3.3 L Arterial Blood Oxygen Saturation 97.8 Kar Test N/A Arterial Blood Gas Puncture Site A-Line Arterial Blood Carboxyhemoglobin 0.3 Arterial Blood Date Drawn 06/18/2016 7:33:34 AM Arterial Blood Methemoglobin 0.3 Arterial Blood pCO2 (Temp correct) 29.2 L Arterial Blood pH (Temp corrected) 7.453 H Arterial Blood pO2 (Temp corrected) 102.5 H Blood Gas A-a O2 Differential 115.6 H Blood Gas Actual Respiration Rate 20 Blood Gas Low PEEP Setting 5.0 Blood Gas Modality VENT - AC Blood Gas Notified Time 06/18/2016 7:53:32 AM Blood Gas Notified Whom JLD Blood Gas Respiration Rate 20.0 Blood Gas Specimen Source Blood arterial Blood Gas Temperature 34.0 Blood Gas Tidal Volume 500.0 FiO2 35.0 Oxyhemoglobin Percent 97.2 Total Hemoglobin 12.3 Test 06/18/16 07:54 06/18/16 08:37 06/18/16 09:28 06/18/16 10:29 Bedside Glucose 99 97 95 115 Test 06/18/16 11:38 Bedside Glucose 94 Medications Medications Current Medications Aspirin (Aspirin) 81 mg DAILY NGT Last administered on 06/18/16 09:19; Admin Dose 81 MG; Start 06/17/16 at 09:00 Clopidogrel Bisulfate (plaVIX) 75 mg DAILY NGT Last administered on 06/18/16 09:19; Admin Dose 75 MG; Start 06/17/16 at 09:00 Atorvastatin Calcium 80 mg 80 mg HS NGT Last administered on 06/17/16 21:05; Admin Dose 80 MG; Start 06/17/16 at 21:00 Sodium Chloride (NS) 1,000 ml @ 50 mls/hr Q20H IV Last administered on 21:05; Admin Dose 50 MLS/HR; Start 06/17/16 at 01:28 Ondansetron HCl (Zofran Inj) 4 mg Q6H PRN IV NAUSEA AND/OR VOMITING; Start at 01:30 Nitroglycerin (Nitroglycerin (Sl Tab) 0.4 Mg) 1 tab Q5M PRN SL CHEST PAIN; Start 06/17/16 at 01:30 Acetaminophen (Tylenol Supp) 650 mg Q4H PRN [place] PAIN LEVEL 1-3 OR FEVER; Start 06/17/16 at 01:30 Lorazepam (Ativan) 1 mg Q2H PRN IV ANXIETY; Start 06/17/16 at 01:30 Bisacodyl (Dulcolax Supp) 10 mg DAILY PRN [place] CONSTIPATION; Start 06/17/16 at 01 :30 Pantoprazole (Protonix Iv) 40 mg DAILY@06 IV Last administered on 06/18/16 05: 15; Admin Dose 40 MG; Start 06/17/16 at 06:00 Acetaminophen (Tylenol Supp) 650 mg Q4H PRN [place] TEMP > 37C; Start 06/17/16 at 01 :30 Acetaminophen (Tylenol Liquid) 650 mg Q4H PRN PO TEMP > 37C; Start 06/17/16 at 01:30 Acetaminophen (Tylenol Supp) 500 mg Q6H [place] ; Start 06/18/16 at 01:30 Acetaminophen (Tylenol Liquid) 500 mg Q6H PO Last administered on 06/18/16 09: 19; Admin Dose 500 MG; Start 06/18/16 at 01:30 Meperidine HCl (Demerol) 12.5 mg Q4H PRN IV POST OPERATIVE SHIVERING; Start at 01:30 Meperidine HCl (Demerol) 25 mg Q4H PRN IV POST OPERATIVE SHIVERING; Start 06/17 at 01:30 Eye Lubricant (Akwa Oint) 1 applic Q6 BOTH EYES Last administered on 06/18/16 11:40; Admin Dose 1 APPLIC; Start 06/17/16 at 06:00 Eye Lubricant (Artificial Tears Oph) 2 drop Q6 BOTH EYES Last administered on 11:40; Admin Dose 2 DROP; Start 06/17/16 at 06:00 Diagnostic Test (Pha) (Accucheck) 1 ea Q1H XX Last administered on 06/18/16 11 :39; Admin Dose 1 EA; Start 06/17/16 at 01:30 Dextrose (D50w Syringe) 25 ml Q15M PRN IV Till BS 80 mg/dL or above x2; Start 06/17/16 at 01:30 Dextrose 50 ml 50 ml Q15M PRN IV Till BS 80 mg/dL or above x2; Start 06/17/16 at 01:30 Piperacillin Sod/ Tazobactam Sod 100 ml @ 200 mls/hr Q6 IVPB Last administered on 06/18/16 11:33; Admin Dose 200 MLS/HR; Start 06/17/16 at 06:00 Vecuronium [place] 100 mg/ Dextrose 100 ml @ 5.22 mls/hr TITRATE IV Last administered on 06/18/16 07:02; Admin Dose 6.27 MLS/HR; Start 06/17/16 at 03:00 Vancomycin HCl/ Sodium Chloride (Vancocin/NS) 250 ml @ 83.333 mls/ hr Q12H IVPB Last administered on 06/18/16 03:03; Admin Dose 83.333 MLS/HR; Start at 15:00 Miscellaneous Information (*Rx Drug Level Order Reminder*) 1 ONCE ONCE XX ; Start 06/18/16 at 14:00; Stop 06/18/16 at 14:01 Valsartan (Diovan) 160 mg DAILY NGT Last administered on 06/17/16 23:28; Admin Dose 160 MG; Start 06/17/16 at 20:30 Metoprolol Tartrate 25 mg 25 mg BID NGT Last administered on 06/18/16 09:19; Admin Dose 25 MG; Start 06/17/16 at 21:00 Amiodarone HCl 900 mg/Dextrose 500 ml @ 0 mls/hr Q0M IV Last administered on 11:42; Admin Dose 16.66 MLS/HR; Start 06/18/16 at 08:00 Sodium Chloride (NS) 1,000 ml @ 50 mls/hr Q20H IV Last administered on 09:25; Admin Dose 50 MLS/HR; Start 06/18/16 at 09:00 Procedures Procedures EKG reviewed, NSR, QTc less prolonged at 590 msec. NELIA COTTON Jun 18, 2016 12:51
[2016-06-18 14:43] LABS: ADD SCAN DIFF NO
[2016-06-18 14:45] LABS: EOSINOPHILS # 0.1 10^3/ul (0.0-0.5); EOSINOPHILS % 0.5 % (0.0-7.0); HEMATOCRIT 33.7 % (37.0-47.0); HEMOGLOBIN 12.1 g/dl (12.0-16.0); LYMPHOCYTES # 1.1 10^3/ul (0.8-2.9); LYMPHOCYTES % 10.9 % (15.0-51.0); MEAN CORPUSCULAR HEMOGLOBIN 31.8 pg (29.0-33.0); MEAN CORPUSCULAR HGB CONC 35.9 g/dl (32.0-37.0); MEAN CORPUSCULAR VOLUME 88.5 fl (82.0-101.0); MONOCYTE # 0.8 10^3/ul (0.3-0.9); MONOCYTES % 7.4 % (0.0-11.0); NEUTROPHIL # 8.3 10^3/ul (1.6-7.5); PLATELET COUNT 159 10^3/UL (140-415); RED BLOOD COUNT 3.81 10^6/ul (4.20-5.40); RED CELL DISTRIBUTION WIDTH 12.8 % (11.5-14.5); WHITE BLOOD COUNT 10.2 10^3/ul (4.8-10.8)
[2016-06-18 14:57] LABS: POTASSIUM 3.2 mmol/L (3.5-5.1)
[2016-06-18 14:59] LABS: CREATININE 0.53 mg/dl (0.44-1.00)
[2016-06-18 15:00] LABS: CALCIUM 6.6 mg/dl (8.4-10.2); MAGNESIUM 2.2 mg/dl (1.7-2.5); PHOSPHORUS 3.4 mg/dl (2.5-4.9)
[2016-06-18 15:00] LABS: AADO2 Arterial 98.6 mmHg (7.0-24.0); Arterial Base Excess -1.9 mmol/L (-3.0-3); Arterial COHb 0.3 % (0.0-3.0); Arterial Fraction of Oxyhgb 97.6 % (93.0-99.0); Arterial HCO3 21.5 mmol/L (22.0-26.0); Arterial MetHb 0.3 % (0.0-1.5); Arterial Total Hemglobin 12.7 g/dl (12.0-18.0); MODE VENT - AC
[2016-06-18 15:01] LABS: INR 1.02; PROTIME 13.4 Sec (12.2-14.2)
[2016-06-18 15:31] LABS: TROPONIN-I 0.926 ng/ml (0.00-0.12)
[2016-06-18] MEDS ORDERED: DEXTROSE 50% 50 ML SYRINGE IV PRN ×2 (19:00)
[2016-06-18] MEDS ORDERED: GLUCOSE GEL 15 GRAM TUBE BUCCAL PRN (19:00)
[2016-06-18] MEDS ORDERED: GLUCAGON 1 MG INJ IM PRN (19:00)
[2016-06-18] MEDS ORDERED: GLUCOSE GEL 15 GRAM TUBE PO PRN ×2 (19:00)
[2016-06-18] MEDS: INSULIN ASPART [NOVOLOG] 3 ML PEN SC SCH (21:00)
[2016-06-18] MEDS ORDERED: INSULIN ASPART [NOVOLOG] 3 ML PEN SC SCH (21:00)
[2016-06-18] MEDS: ATORVASTATIN 80 MG TAB NGT SCH (21:13)
[2016-06-19] VITALS (30 sets, daily range): BP systolic 104–149; BP diastolic 55–90; PULSE 74–102; RESP 14–24
[2016-06-19 00:22] LABS: POTASSIUM 3.3 mmol/L (3.5-5.1)
[2016-06-19 00:25] LABS: CALCIUM 6.2 mg/dl (8.4-10.2); CREATININE 0.6 mg/dl (0.44-1.00)
[2016-06-19] MEDS: INSULIN ASPART [NOVOLOG] 3 ML PEN SC SCH ×5 (01:00→18:00)
[2016-06-19] MEDS: ARTIFICIAL TEARS 15 ML OPH BOTH EYES SCH ×2 (01:27→06:06)
[2016-06-19] MEDS: PIPER-TAZO 3.375 GM IV (PMX) 100 ML IVPB SCH ×4 (01:27→18:04)
[2016-06-19] MEDS: OCULAR LUBRICANT 3.5 GM OPH OINT BOTH EYES SCH ×2 (01:27→06:06)
[2016-06-19] MEDS: PROPOFOL 100 ML IV SCH (01:27)
[2016-06-19] MEDS: POTASSIUM CHLORIDE 50 ML IVPB PRN ×3 (01:28→04:13)
[2016-06-19] MEDS: ACETAMINOPHEN 650 MG SUPP PR SCH ×2 (01:29→08:13)
[2016-06-19] MEDS: IPRATROPIUM (HFA) 12.9 GM INHALER INH SCH ×5 (01:44→21:00)
[2016-06-19] MEDS: ALBUTEROL HFA 8 GM INHALER INH SCH ×5 (01:44→21:00)
[2016-06-19] MEDS: ACETAMINOPHEN 650MG/20.3ML CUP PO SCH ×2 (01:47→08:12)
[2016-06-19] MEDS: VANCOMYCIN 1.5 GM in SOD CHLORIDE 0.9% 250 ML IVPB SCH (04:13)
[2016-06-19] MEDS: SOD CHLORIDE 0.9% 1,000 ML IV SCH (05:00)
[2016-06-19] MEDS: PANTOPRAZOLE 40 MG INJ IV SCH (06:05)
[2016-06-19 06:12] LABS: AADO2 Arterial 100.8 mmHg (7.0-24.0); Allen Test ACCEPTAB; Arterial Base Excess 0.5 mmol/L (-3.0-3); Arterial COHb 0.3 % (0.0-3.0); Arterial Fraction of Oxyhgb 97.2 % (93.0-99.0); Arterial HCO3 23.8 mmol/L (22.0-26.0); Arterial MetHb 0.4 % (0.0-1.5); Arterial Total Hemglobin 12.1 g/dl (12.0-18.0); MODE VENT - AC
[2016-06-19 06:25] LABS: ADD SCAN DIFF NO
[2016-06-19 06:34] LABS: BASOPHILS % 0.2 % (0.0-2.0); EOSINOPHILS % 0.2 % (0.0-7.0); HEMATOCRIT 31.1 % (37.0-47.0); HEMOGLOBIN 10.9 g/dl (12.0-16.0); LYMPHOCYTES # 1.7 10^3/ul (0.8-2.9); LYMPHOCYTES % 16.1 % (15.0-51.0); MEAN CORPUSCULAR HEMOGLOBIN 31.8 pg (29.0-33.0); MEAN CORPUSCULAR VOLUME 90.7 fl (82.0-101.0); MEAN PLATELET VOLUME 10.9 fl (7.4-10.4); MONOCYTE # 1.1 10^3/ul (0.3-0.9); MONOCYTES % 9.9 % (0.0-11.0); NEUTROPHIL # 7.9 10^3/ul (1.6-7.5); PLATELET COUNT 151 10^3/UL (140-415); RED BLOOD COUNT 3.43 10^6/ul (4.20-5.40); RED CELL DISTRIBUTION WIDTH 13.2 % (11.5-14.5); WHITE BLOOD COUNT 10.8 10^3/ul (4.8-10.8)
[2016-06-19 06:53] LABS: ALBUMIN 2.9 g/dl (3.3-4.9); POTASSIUM 3.5 mmol/L (3.5-5.1)
[2016-06-19 06:55] LABS: CREATININE 0.68 mg/dl (0.44-1.00)
[2016-06-19 06:56] LABS: ALBUMIN/GLOBULIN RATIO 1.26; BILIRUBIN,INDIRECT 0.1 mg/dl (0-1.1); BILIRUBIN,TOTAL 0.1 mg/dl (0.2-1.3); CALCIUM 6.3 mg/dl (8.4-10.2); TOTAL PROTEIN 5.2 g/dl (6.1-8.1)
[2016-06-19] MEDS: ACCUCHECK XX SCH (08:12)
--- NOTE | 2016-06-19 08:22 | RADRPT ---
PROCEDURE: XR Chest AP portable CLINICAL INDICATION: Intubated TECHNIQUE: An AP portable radiograph of the chest was submitted. COMPARISON: 06/18/2016 FINDINGS: Support Hardware: The endotracheal tube is stable in positioning as is the NG tube. Cardiovascular: The cardiovascular silhouette appears unremarkable except for persistent atheroscler otic changes of the aorta. Lung Oneill: The lung oneill appear clear with no nodule, alveolar infiltrate, for a interstitial pr ominence evident. Pleural Spaces: No pneumothorax or pleural effusion is identified. Osseous Structures: Appear intact Soft Tissues: The soft tissues appear generous. IMPRESSION: 1. Endotracheal tube and NG tube stable positioning. 2. Atherosclerotic aorta 3. Otherwise, stable unremarkable chest. Physician Katerin Date Time Electronically viewed and signed by Physician Katerin on 06/19/2016 08:21 /
[2016-06-19] MEDS ORDERED: CALCIUM GLUCONATE 10% 2 GM in SOD CHLORIDE 0.9% 100 ML IVPB ONE (09:00)
[2016-06-19] MEDS ORDERED: POTASSIUM CHLORIDE 250 ML IVPB ONE ×2 (09:00→12:00)
--- NOTE | 2016-06-19 09:02 | PN ---
Date/Time of Note Date/Time of Note DATE: 06/19/16 TIME: 08:55 Assessment/Plan VTE Prophylaxis VTE Prophylaxis Intervention: heparin Lines/Catheters IV Catheter Type (from [facility]): Peripheral IV Urinary Cath still in place: Yes Reason Cath still needed: other (indicate) (intubated) Assessment/Plan Assessment/Plan 60 yo female with a past medical history of essential hypertension, depression who came in for Vfib arrest. 1. Vfib arrest - 2/2 severe hypokalemia + CAD * Questionable small distal left circumflex lesion, post balloon angioplasty of small vessel * Now s/p hypothermia protocol 2. VDRF 3. Metabolic acidosis - severe: resolved 4. Severe hypokalemia - Repleted 5. Bilateral pneumonia 6. Hyperglycemia: Stress Induced 7. Essential hypertension - stable for now 8. Chronic Depression 9. Cardiomyopathy with EF 40%, global hypokinesis, likely secondary to cardiac arrest 10. S/p Witness fall without injury 2/2 #1 11. Diarrhea: C-diff neg / cultures unreactive / likely reactive PLAN: * Continue ICU monitoring and care * Continue Vent mgt / patient on CPAP trials / possible extubation planned today * Continue IV abx * Replace Lytes * Continue to follow cardiology recs and mgt PROPHYLAXIS: Heparin / PPI Prognosis remains guarded CRITICAL CARE TIME: >35 mins Subjective 24 Hr Interval Summary Free Text/Dictation * Patient seen and examined. * Nursing reports no acute overnight events. * Now on rewarming protocol * Patient off sedation and alert Subjective hx not possible: pt non-verbal, pt critical status Exam/Review of Systems Vital Signs Vitals Vital Signs Date Time Temp Pulse Resp B/P Pulse Ox O2 Delivery O2 Flow Rate FiO2 06/19/16 06:00 79 20 115/71 100 06/19/16 05:41 35 06/19/16 05:00 Mechanical Ventilator 06/19/16 04:00 98.0 Intake and Output 06/18/16 06/18/16 06/19/16 15:00 23:00 07:00 Intake Total 545.61 ml 491.305 ml Output Total 610 ml 315 ml 581 ml Balance -64.39 ml 176.305 ml -581 ml Exam Gen Juan: alert, lethargic, following commands HEENT: hematoma left supraorbital region, PERRL, ETT in place NECK: supple, no thyromegaly THORAX: symmetrical, no obvious deformities CV: S1S2, Lungs: diminished breath sounds to the bases bilaterally, no wheezing or rhonchi Abd: soft, NT/ND, +BS, no rebound, no guarding, neg HSM EXT: no edema Neuro: moving all extremities Psych: cannot assess Skin: C/D/I Results Result Diagram: 06/19/16 0600 06/19/16 0600 Results 24 hrs Laboratory Tests Test 06/18/16 09:28 06/18/16 10:29 06/18/16 11:38 06/18/16 12:44 Bedside Glucose 95 115 94 98 Test 06/18/16 13:35 06/18/16 14:20 06/18/16 14:26 06/18/16 15:00 Bedside Glucose 97 108 Activated Partial Thromboplast Time 30.0 Anion Gap 13 Basophils # 0.0 Basophils % 0.0 Blood Urea Nitrogen 8 Calcium Level 6.6 L Carbon Dioxide Level 24 Chloride Level 104 Creatinine 0.53 Eosinophils # 0.1 Eosinophils % 0.5 Fibrinogen 345.0 # Glucose Level 101 Hematocrit 33.7 L Hemoglobin 12.1 INR International Normalized Ratio 1.02 Lymphocytes # 1.1 Lymphocytes % 10.9 L Magnesium Level 2.2 Mean Corpuscular Hemoglobin 31.8 Mean Corpuscular Hemoglobin Concent 35.9 Mean Corpuscular Volume 88.5 Mean Platelet Volume 11.0 H Monocytes # 0.8 Monocytes % 7.4 Neutrophils # 8.3 H Neutrophils % 81.0 H Nucleated Red Blood Cells # 0.0 Nucleated Red Blood Cells % 0.0 Phosphorus Level 3.4 Platelet Count 159 Potassium Level 3.2 L Prothrombin Time 13.4 Prothrombin Time Ratio 1.0 Red Blood Count 3.81 L Red Cell Distribution Width 12.8 Sodium Level 138 Troponin I 0.926 *H Vancomycin Level Trough 13.1 White Blood Count 10.2 Arterial Blood HCO3 21.5 L Arterial Blood Base Excess -1.9 Arterial Blood Oxygen Saturation 98.2 H Kar Test N/A Arterial Blood Gas Puncture Site A-Line Arterial Blood Carboxyhemoglobin 0.3 Arterial Blood Date Drawn 06/18/2016 2:45:19 PM Arterial Blood Methemoglobin 0.3 Arterial Blood pCO2 (Temp correct) 30.6 L Arterial Blood pH (Temp corrected) 7.459 H Arterial Blood pO2 (Temp corrected) 116.6 H Blood Gas A-a O2 Differential 98.6 H Blood Gas Actual Respiration Rate 20 Blood Gas Low PEEP Setting 5.0 Blood Gas Modality VENT - AC Blood Gas Notified Time 06/18/2016 2:56:12 PM Blood Gas Notified Whom JLD Blood Gas Respiration Rate 20.0 Blood Gas Specimen Source Blood arterial Blood Gas Temperature 35.7 Blood Gas Tidal Volume 500.0 FiO2 35.0 Oxyhemoglobin Percent 97.6 Total Hemoglobin 12.7 Test 06/18/16 16:03 06/18/16 16:43 06/18/16 18:49 06/18/16 21:12 Bedside Glucose 102 104 116 106 Test 06/18/16 23:27 06/19/16 01:24 06/19/16 06:00 06/19/16 06:04 Anion Gap 11 12 Blood Urea Nitrogen 7 8 Calcium Level 6.2 L 6.3 L Carbon Dioxide Level 26 25 Chloride Level 102 107 Creatinine 0.60 0.68 Glucose Level 95 106 Potassium Level 3.3 L 3.5 Sodium Level 136 140 Bedside Glucose 108 96 Alanine Aminotransferase (ALT/SGPT) 44 Albumin 2.9 L Albumin/Globulin Ratio 1.26 Alkaline Phosphatase 46 Arterial Blood HCO3 23.8 Arterial Blood Base Excess 0.5 Arterial Blood Oxygen Saturation 97.9 Kar Test ACCEPTAB Arterial Blood Gas Puncture Site Right Radial Arterial Blood Carboxyhemoglobin 0.3 Arterial Blood Date Drawn 06/19/2016 6:02:27 AM Arterial Blood Methemoglobin 0.4 Arterial Blood pCO2 (Temp correct) 33.7 L Arterial Blood pH (Temp corrected) 7.466 H Arterial Blood pO2 (Temp corrected) 109.6 H Aspartate Amino Transf (AST/SGOT) 77 H Basophils # 0.0 Basophils % 0.2 Blood Gas A-a O2 Differential 100.8 H Blood Gas Actual Respiration Rate 23 Blood Gas Low PEEP Setting 5.0 Blood Gas Modality VENT - AC Blood Gas Notified Time 06/19/2016 6:12:47 AM Blood Gas Notified Whom WF Blood Gas Respiration Rate 20.0 Blood Gas Specimen Source Blood arterial Blood Gas Temperature 37.0 Blood Gas Tidal Volume 500.0 Direct Bilirubin 0.00 Eosinophils # 0.0 Eosinophils % 0.2 FiO2 35.0 Globulin 2.30 Hematocrit 31.1 L Hemoglobin 10.9 L Indirect Bilirubin 0.1 Lymphocytes # 1.7 Lymphocytes % 16.1 Mean Corpuscular Hemoglobin 31.8 Mean Corpuscular Hemoglobin Concent 35.0 Mean Corpuscular Volume 90.7 Mean Platelet Volume 10.9 H Monocytes # 1.1 H Monocytes % 9.9 Neutrophils # 7.9 H Neutrophils % 73.0 Nucleated Red Blood Cells # 0.0 Nucleated Red Blood Cells % 0.0 Oxyhemoglobin Percent 97.2 Platelet Count 151 Red Blood Count 3.43 L Red Cell Distribution Width 13.2 Total Bilirubin 0.1 L Total Hemoglobin 12.1 Total Protein 5.2 L White Blood Count 10.8 Medications Medications Current Medications Aspirin (Aspirin) 81 mg DAILY NGT Last administered on 06/18/16 09:19; Admin Dose 81 MG; Start 06/17/16 at 09:00 Clopidogrel Bisulfate (plaVIX) 75 mg DAILY NGT Last administered on 06/18/16 09:19; Admin Dose 75 MG; Start 06/17/16 at 09:00 Atorvastatin Calcium 80 mg 80 mg HS NGT Last administered on 06/18/16 21:13; Admin Dose 80 MG; Start 06/17/16 at 21:00 Sodium Chloride (NS) 1,000 ml @ 50 mls/hr Q20H IV Last administered on 21:05; Admin Dose 50 MLS/HR; Start 06/17/16 at 01:28 Ondansetron HCl (Zofran Inj) 4 mg Q6H PRN IV NAUSEA AND/OR VOMITING; Start at 01:30 Nitroglycerin (Nitroglycerin (Sl Tab) 0.4 Mg) 1 tab Q5M PRN SL CHEST PAIN; Start 06/17/16 at 01:30 Acetaminophen (Tylenol Supp) 650 mg Q4H PRN [place] PAIN LEVEL 1-3 OR FEVER; Start 06/17/16 at 01:30 Lorazepam (Ativan) 1 mg Q2H PRN IV ANXIETY; Start 06/17/16 at 01:30 Bisacodyl (Dulcolax Supp) 10 mg DAILY PRN [place] CONSTIPATION; Start 06/17/16 at 01 :30 Pantoprazole (Protonix Iv) 40 mg DAILY@06 IV Last administered on 06/19/16 06: 05; Admin Dose 40 MG; Start 06/17/16 at 06:00 Acetaminophen (Tylenol Supp) 650 mg Q4H PRN [place] TEMP > 37C; Start 06/17/16 at 01 :30 Acetaminophen (Tylenol Liquid) 650 mg Q4H PRN PO TEMP > 37C; Start 06/17/16 at 01:30 Meperidine HCl (Demerol) 12.5 mg Q4H PRN IV POST OPERATIVE SHIVERING; Start at 01:30 Meperidine HCl (Demerol) 25 mg Q4H PRN IV POST OPERATIVE SHIVERING; Start 06/17 at 01:30 Eye Lubricant (Akwa Oint) 1 applic Q6 BOTH EYES Last administered on 06/19/16 06:06; Admin Dose 1 APPLIC; Start 06/17/16 at 06:00 Eye Lubricant 2 drop 2 drop Q6 BOTH EYES Last administered on 06/19/16 06:06; Admin Dose 2 DROP; Start 06/17/16 at 06:00 Piperacillin Sod/ Tazobactam Sod 100 ml @ 200 mls/hr Q6 IVPB Last administered on 06/19/16 06:07; Admin Dose 200 MLS/HR; Start 06/17/16 at 06:00 Vecuronium [facility] 100 mg/ Dextrose 100 ml @ 5.22 mls/hr TITRATE IV Last administered on 06/18/16 07:02; Admin Dose 6.27 MLS/HR; Start 06/17/16 at 03:00 Vancomycin HCl/ Sodium Chloride (Vancocin/NS) 250 ml @ 83.333 mls/ hr Q12H IVPB Last administered on 06/19/16 04:13; Admin Dose 83.333 MLS/HR; Start at 15:00 Valsartan (Diovan) 160 mg DAILY NGT Last administered on 06/17/16 23:28; Admin Dose 160 MG; Start 06/17/16 at 20:30 Metoprolol Tartrate 25 mg 25 mg BID NGT Last administered on 06/18/16 21:14; Admin Dose 25 MG; Start 06/17/16 at 21:00 Sodium Chloride (NS) 1,000 ml @ 50 mls/hr Q20H IV Last administered on 05:00; Admin Dose 50 MLS/HR; Start 06/18/16 at 09:00 Insulin Aspart (Novolog Insulin Pen) NOVOLOG *MILD* ALGORI... Q4 SC ; Start at 21:00 Miscellaneous Information 1 ea NOTE XX ; Start 06/18/16 at 19:00 Glucose (Glutose) 15 gm Q15M PRN PO DECREASED GLUCOSE; Start 06/18/16 at 19:00 Glucose (Glutose) 22.5 gm Q15M PRN PO DECREASED GLUCOSE; Start 06/18/16 at 19: 00 Dextrose (D50w Syringe) 25 ml Q15M PRN IV DECREASED GLUCOSE; Start 06/18/16 at 19:00 Dextrose (D50w Syringe) 50 ml Q15M PRN IV DECREASED GLUCOSE; Start 06/18/16 at 19:00 Glucagon (Glucagen) 1 mg Q15M PRN IM DECREASED GLUCOSE; Start 06/18/16 at 19:00 Glucose (Glutose) 15 gm Q15M PRN [place] DECREASED GLUCOSE; Start 06/18/16 at 19 :00 LOREN HONG Jun 19, 2016 09:02
--- NOTE | 2016-06-19 10:35 | CONS ---
Date/Time of Note Date/Time of Note DATE: 06/19/16 TIME: 10:30 Assessment/Plan Assessment/Plan Additional Assessment/Plan Ventilator settings; AC of 20, tidal volume 500, PEEP of 5, 35% FiO2. Chest x-ray was reviewed from today which is essentially clear. Assessment and recommendations; 1. Patient admitted with cardiac arrest status post prolonged CPR. 2. Patient exhibiting excellent mental status. 3. Hemodynamically stable. Without any evidence of cardiac arrhythmia. 4. Cardiac arrest event likely attributed to hypokalemia. 5. History of hypertension. 6. History of hepatitis C. Hold sedation for now. Once the patient is off sedative effect, she will be evaluated for weaning from ventilator. I did have a detailed discussion with the patient's son at bedside and answered all his questions. Consultation Date/Type/Reason Admit Date/Time Jun 17, 2016 at 01:43 Initial Consult Date 06/17/16 Type of Consultation: Pulmonary/critical Referring Provider: SAM DOHERTY MD 24 HR Interval Summary Free Text/Dictation Patient condition remains critical but the overall condition is markedly improved. Patient despite being on sedation is completely awake alert and follows commands. Has remained hemodynamically stable. General examination; middle aged woman, orally intubated awake and alert. Currently in no distress. Exam/Review of Systems Vital Signs Vitals Vital Signs Date Time Temp Pulse Resp B/P Pulse Ox O2 Delivery O2 Flow Rate FiO2 06/19/16 09:25 82 20 100 35 06/19/16 06:00 115/71 06/19/16 05:00 Mechanical Ventilator 06/19/16 04:00 98.0 Intake and Output 06/18/16 06/18/16 06/19/16 15:00 23:00 07:00 Intake Total 545.61 ml 491.305 ml Output Total 610 ml 315 ml 581 ml Balance -64.39 ml 176.305 ml -581 ml Exam H EENT examination; supple neck, no JVD. No lymphadenopathy. Midline trachea. Orally intubated. Pupils are small bilaterally. No neck masses. Chest examination; clear to auscultation bilaterally. S1-S2 audible, no murmurs. Regular rhythm. Abdomen examination; soft, nondistended, no organomegaly. Bowel sounds audible. Extremity examination; no peripheral edema. Pulses 1+ bilaterally. INFORMATION SECURITY SPECIALIST examination; no focal deficit. Results Result Diagram: 06/19/16 0600 06/19/16 0600 Results 24 hrs Laboratory Tests Test 06/18/16 11:38 06/18/16 12:44 06/18/16 13:35 06/18/16 14:20 Bedside Glucose 94 98 97 Activated Partial Thromboplast Time 30.0 Anion Gap 13 Basophils # 0.0 Basophils % 0.0 Blood Urea Nitrogen 8 Calcium Level 6.6 L Carbon Dioxide Level 24 Chloride Level 104 Creatinine 0.53 Eosinophils # 0.1 Eosinophils % 0.5 Fibrinogen 345.0 # Glucose Level 101 Hematocrit 33.7 L Hemoglobin 12.1 INR International Normalized Ratio 1.02 Lymphocytes # 1.1 Lymphocytes % 10.9 L Magnesium Level 2.2 Mean Corpuscular Hemoglobin 31.8 Mean Corpuscular Hemoglobin Concent 35.9 Mean Corpuscular Volume 88.5 Mean Platelet Volume 11.0 H Monocytes # 0.8 Monocytes % 7.4 Neutrophils # 8.3 H Neutrophils % 81.0 H Nucleated Red Blood Cells # 0.0 Nucleated Red Blood Cells % 0.0 Phosphorus Level 3.4 Platelet Count 159 Potassium Level 3.2 L Prothrombin Time 13.4 Prothrombin Time Ratio 1.0 Red Blood Count 3.81 L Red Cell Distribution Width 12.8 Sodium Level 138 Troponin I 0.926 *H Vancomycin Level Trough 13.1 White Blood Count 10.2 Test 06/18/16 14:26 06/18/16 15:00 06/18/16 16:03 06/18/16 16:43 Bedside Glucose 108 102 104 Arterial Blood HCO3 21.5 L Arterial Blood Base Excess -1.9 Arterial Blood Oxygen Saturation 98.2 H Kar Test N/A Arterial Blood Gas Puncture Site A-Line Arterial Blood Carboxyhemoglobin 0.3 Arterial Blood Date Drawn 06/18/2016 2:45:19 PM Arterial Blood Methemoglobin 0.3 Arterial Blood pCO2 (Temp correct) 30.6 L Arterial Blood pH (Temp corrected) 7.459 H Arterial Blood pO2 (Temp corrected) 116.6 H Blood Gas A-a O2 Differential 98.6 H Blood Gas Actual Respiration Rate 20 Blood Gas Low PEEP Setting 5.0 Blood Gas Modality VENT - AC Blood Gas Notified Time 06/18/2016 2:56:12 PM Blood Gas Notified Whom JLD Blood Gas Respiration Rate 20.0 Blood Gas Specimen Source Blood arterial Blood Gas Temperature 35.7 Blood Gas Tidal Volume 500.0 FiO2 35.0 Oxyhemoglobin Percent 97.6 Total Hemoglobin 12.7 Test 06/18/16 18:49 06/18/16 21:12 06/18/16 23:27 06/19/16 01:24 Bedside Glucose 116 106 108 Anion Gap 11 Blood Urea Nitrogen 7 Calcium Level 6.2 L Carbon Dioxide Level 26 Chloride Level 102 Creatinine 0.60 Glucose Level 95 Potassium Level 3.3 L Sodium Level 136 Test 06/19/16 06:00 06/19/16 06:04 Alanine Aminotransferase (ALT/SGPT) 44 Albumin 2.9 L Albumin/Globulin Ratio 1.26 Alkaline Phosphatase 46 Arterial Blood HCO3 23.8 Arterial Blood Base Excess 0.5 Arterial Blood Oxygen Saturation 97.9 Kar Test ACCEPTAB Arterial Blood Gas Puncture Site Right Radial Anion Gap 12 Arterial Blood Carboxyhemoglobin 0.3 Arterial Blood Date Drawn 06/19/2016 6:02:27 AM Arterial Blood Methemoglobin 0.4 Arterial Blood pCO2 (Temp correct) 33.7 L Arterial Blood pH (Temp corrected) 7.466 H Arterial Blood pO2 (Temp corrected) 109.6 H Aspartate Amino Transf (AST/SGOT) 77 H Basophils # 0.0 Basophils % 0.2 Blood Gas A-a O2 Differential 100.8 H Blood Gas Actual Respiration Rate 23 Blood Gas Low PEEP Setting 5.0 Blood Gas Modality VENT - AC Blood Gas Notified Time 06/19/2016 6:12:47 AM Blood Gas Notified Whom WF Blood Gas Respiration Rate 20.0 Blood Gas Specimen Source Blood arterial Blood Gas Temperature 37.0 Blood Gas Tidal Volume 500.0 Blood Urea Nitrogen 8 Calcium Level 6.3 L Carbon Dioxide Level 25 Chloride Level 107 Creatinine 0.68 Direct Bilirubin 0.00 Eosinophils # 0.0 Eosinophils % 0.2 FiO2 35.0 Globulin 2.30 Glucose Level 106 Hematocrit 31.1 L Hemoglobin 10.9 L Indirect Bilirubin 0.1 Lymphocytes # 1.7 Lymphocytes % 16.1 Mean Corpuscular Hemoglobin 31.8 Mean Corpuscular Hemoglobin Concent 35.0 Mean Corpuscular Volume 90.7 Mean Platelet Volume 10.9 H Monocytes # 1.1 H Monocytes % 9.9 Neutrophils # 7.9 H Neutrophils % 73.0 Nucleated Red Blood Cells # 0.0 Nucleated Red Blood Cells % 0.0 Oxyhemoglobin Percent 97.2 Platelet Count 151 Potassium Level 3.5 Red Blood Count 3.43 L Red Cell Distribution Width 13.2 Sodium Level 140 Total Bilirubin 0.1 L Total Hemoglobin 12.1 Total Protein 5.2 L White Blood Count 10.8 Bedside Glucose 96 Medications Medications Current Medications Aspirin (Aspirin) 81 mg DAILY NGT Last administered on 06/18/16 09:19; Admin Dose 81 MG; Start 06/17/16 at 09:00 Clopidogrel Bisulfate (plaVIX) 75 mg DAILY NGT Last administered on 06/18/16 09:19; Admin Dose 75 MG; Start 06/17/16 at 09:00 Atorvastatin Calcium (Lipitor) 80 mg HS NGT Last administered on 06/18/16 21: 13; Admin Dose 80 MG; Start 06/17/16 at 21:00 Ondansetron HCl (Zofran Inj) 4 mg Q6H PRN IV NAUSEA AND/OR VOMITING; Start at 01:30 Nitroglycerin (Nitroglycerin (Sl Tab) 0.4 Mg) 1 tab Q5M PRN SL CHEST PAIN; Start 06/17/16 at 01:30 Acetaminophen (Tylenol Supp) 650 mg Q4H PRN MS PAIN LEVEL 1-3 OR FEVER; Start 06/17/16 at 01:30 Lorazepam (Ativan) 1 mg Q2H PRN IV ANXIETY; Start 06/17/16 at 01:30 Bisacodyl (Dulcolax Supp) 10 mg DAILY PRN MS CONSTIPATION; Start 06/17/16 at 01 :30 Pantoprazole (Protonix Iv) 40 mg DAILY@06 IV Last administered on 06/19/16 06: 05; Admin Dose 40 MG; Start 06/17/16 at 06:00 Acetaminophen (Tylenol Supp) 650 mg Q4H PRN MS TEMP > 37C; Start 06/17/16 at 01 :30 Acetaminophen (Tylenol Liquid) 650 mg Q4H PRN PO TEMP > 37C; Start 06/17/16 at 01:30 Meperidine HCl (Demerol) 12.5 mg Q4H PRN IV POST OPERATIVE SHIVERING; Start at 01:30 Meperidine HCl 25 mg 25 mg Q4H PRN IV POST OPERATIVE SHIVERING; Start 06/17/16 at 01:30 Piperacillin Sod/ Tazobactam Sod (Zosyn 3.375gm/ 100 ml (Pmx)) 100 ml @ 200 mls /hr Q6 IVPB Last administered on 06/19/16 06:07; Admin Dose 200 MLS/HR; Start 06/17/16 at 06:00 Valsartan (Diovan) 160 mg DAILY NGT Last administered on 06/17/16 23:28; Admin Dose 160 MG; Start 06/17/16 at 20:30 Metoprolol Tartrate 25 mg 25 mg BID NGT Last administered on 06/18/16 21:14; Admin Dose 25 MG; Start 06/17/16 at 21:00 Sodium Chloride (NS) 1,000 ml @ 50 mls/hr Q20H IV Last administered on 05:00; Admin Dose 50 MLS/HR; Start 06/18/16 at 09:00 Miscellaneous Information 1 ea NOTE XX ; Start 06/18/16 at 19:00 Glucose (Glutose) 15 gm Q15M PRN PO DECREASED GLUCOSE; Start 06/18/16 at 19:00 Glucose (Glutose) 22.5 gm Q15M PRN PO DECREASED GLUCOSE; Start 06/18/16 at 19: 00 Dextrose (D50w Syringe) 25 ml Q15M PRN IV DECREASED GLUCOSE; Start 06/18/16 at 19:00 Dextrose (D50w Syringe) 50 ml Q15M PRN IV DECREASED GLUCOSE; Start 06/18/16 at 19:00 Glucagon (Glucagen) 1 mg Q15M PRN IM DECREASED GLUCOSE; Start 06/18/16 at 19:00 Glucose 15 gm 15 gm Q15M PRN BUCCAL DECREASED GLUCOSE; Start 06/18/16 at 19:00 Calcium Gluconate/ Sodium Chloride (Ca Gluc/NS) 120 ml @ 60 mls/hr ONCE ONCE IVPB ; Start 06/19/16 at 09:00; Stop 06/19/16 at 10:59 Calcium/Vitamin D 1 tab 1 tab TID NGT ; Start 06/19/16 at 09:00 Potassium Chloride (KCl 40 MEQ/250 ML NS) 250 ml @ 62.5 mls/hr ONCE ONCE IVPB ; Start 06/19/16 at 09:00; Stop 06/19/16 at 12:59 Insulin Aspart (Novolog Insulin Pen) NOVOLOG *MILD* ALGORI... Q6 SC ; Start at 12:00 GIOVANNI NAVARRETE Jun 19, 2016 10:35
[2016-06-19] MEDS: VALSARTAN 160 MG TAB NGT SCH (11:15)
[2016-06-19] MEDS: ASPIRIN 81 MG TAB NGT SCH (11:16)
[2016-06-19] MEDS: METOPROLOL 25 MG TAB NGT SCH ×2 (11:16→21:00)
[2016-06-19] MEDS: CLOPIDOGREL 75 MG TAB NGT SCH (11:16)
[2016-06-19] MEDS: CALCIUM/VITAMIN D (500/200) TAB NGT SCH ×3 (11:16→21:00)
--- NOTE | 2016-06-19 19:48 | PN ---
Date/Time of Note Date/Time of Note DATE: 06/19/16 TIME: 19:43 Assessment/Plan VTE Prophylaxis VTE Prophylaxis Intervention: SCD's Lines/Catheters IV Catheter Type (from Nrs): Peripheral IV Urinary Cath still in place: Yes Reason Cath still needed: other (indicate) (recently extubated) Assessment/Plan Chief Complaint/Hosp Course 60 yo with witnessed vf arrest and ekg showing st elevations in inferior leads. Problems: Assessment/Plan Impression: VF arrest likely secondary to profound hypokalemia Questionable small distal left circumflex lesion, post balloon angioplasty of small vessel Cardiomyopathy with EF 40%, global hypokinesis, likely secondary to cardiac arrest Hypokalemia, hypocalcemia, with correction of electrolyte Hypertension Hepatitis C Recommendations: Continue asa, clopidogrel, and statin for treatment of possible small acute coronary occlusion Observe electrolytes and replete as needed Continue valsartan and metoprolol for cardiomyopathy and blood pressure control , and uptitrate as able If patient able to swallow pills, would switch metoprolol tartrate to metoprolol succinate which is more appropriate for treatment of cardiomyopathy Patient to be transferred to [facility] tomorrow Subjective 24 Hr Interval Summary Free Text/Dictation Patient extubated. She is awake, answers questions appropriately, but voice is very soft. Constitutional: no complaints Respiratory: no complaints Cardiovascular: no complaints Exam/Review of Systems Vital Signs Vitals Vital Signs Date Time Temp Pulse Resp B/P Pulse Ox O2 Delivery O2 Flow Rate FiO2 06/19/16 18:40 100 2.0 36 06/19/16 16:00 99.1 82 14 123/62 Nasal Cannula Intake and Output 06/18/16 06/18/16 06/19/16 15:00 23:00 07:00 Intake Total 545.61 ml 491.305 ml 462.54 ml Output Total 610 ml 315 ml 848 ml Balance -64.39 ml 176.305 ml -385.46 ml Exam Constitutional: alert, No distress Head: normocephalic Eyes: EOMI, nl conjunctiva ENMT: nl lips & teeth Neck: No bruits, No jvd Respiratory: clear to auscultation (anteriorly) Cardiovascular: regular rate and rhythm, No murmurs/extra sounds Gastrointestinal: soft Musculoskeletal: nl extremities to inspection Extremities: No edema Neurological: other (alert and appropriate) Skin: nl turgor Results Result Diagram: 06/19/16 0606/19/16 0600 Results 24 hrs Laboratory Tests Test 06/18/16 21:12 06/18/16 23:27 06/19/16 01:24 06/19/16 06:00 Bedside Glucose 106 108 Anion Gap 11 12 Blood Urea Nitrogen 7 8 Calcium Level 6.2 L 6.3 L Carbon Dioxide Level 26 25 Chloride Level 102 107 Creatinine 0.60 0.68 Glucose Level 95 106 Potassium Level 3.3 L 3.5 Sodium Level 136 140 Alanine Aminotransferase (ALT/SGPT) 44 Albumin 2.9 L Albumin/Globulin Ratio 1.26 Alkaline Phosphatase 46 Arterial Blood HCO3 23.8 Arterial Blood Base Excess 0.5 Arterial Blood Oxygen Saturation 97.9 Kar Test ACCEPTAB Arterial Blood Gas Puncture Site Right Radial Arterial Blood Carboxyhemoglobin 0.3 Arterial Blood Date Drawn 06/19/2016 6:02:27 AM Arterial Blood Methemoglobin 0.4 Arterial Blood pCO2 (Temp correct) 33.7 L Arterial Blood pH (Temp corrected) 7.466 H Arterial Blood pO2 (Temp corrected) 109.6 H Aspartate Amino Transf (AST/SGOT) 77 H Basophils # 0.0 Basophils % 0.2 Blood Gas A-a O2 Differential 100.8 H Blood Gas Actual Respiration Rate 23 Blood Gas Low PEEP Setting 5.0 Blood Gas Modality VENT - AC Blood Gas Notified Time 06/19/2016 6:12:47 AM Blood Gas Notified Whom WF Blood Gas Respiration Rate 20.0 Blood Gas Specimen Source Blood arterial Blood Gas Temperature 37.0 Blood Gas Tidal Volume 500.0 Direct Bilirubin 0.00 Eosinophils # 0.0 Eosinophils % 0.2 FiO2 35.0 Globulin 2.30 Hematocrit 31.1 L Hemoglobin 10.9 L Indirect Bilirubin 0.1 Lymphocytes # 1.7 Lymphocytes % 16.1 Mean Corpuscular Hemoglobin 31.8 Mean Corpuscular Hemoglobin Concent 35.0 Mean Corpuscular Volume 90.7 Mean Platelet Volume 10.9 H Monocytes # 1.1 H Monocytes % 9.9 Neutrophils # 7.9 H Neutrophils % 73.0 Nucleated Red Blood Cells # 0.0 Nucleated Red Blood Cells % 0.0 Oxyhemoglobin Percent 97.2 Platelet Count 151 Red Blood Count 3.43 L Red Cell Distribution Width 13.2 Total Bilirubin 0.1 L Total Hemoglobin 12.1 Total Protein 5.2 L White Blood Count 10.8 Test 06/19/16 06:04 06/19/16 12:42 06/19/16 17:58 Bedside Glucose 96 97 106 Medications Medications Current Medications Aspirin (Aspirin) 81 mg DAILY NGT Last administered on 06/19/16 11:16; Admin Dose 81 MG; Start 06/17/16 at 09:00 Clopidogrel Bisulfate (plaVIX) 75 mg DAILY NGT Last administered on 06/19/16 11:16; Admin Dose 75 MG; Start 06/17/16 at 09:00 Atorvastatin Calcium (Lipitor) 80 mg HS NGT Last administered on 06/18/16 21: 13; Admin Dose 80 MG; Start 06/17/16 at 21:00 Ondansetron HCl (Zofran Inj) 4 mg Q6H PRN IV NAUSEA AND/OR VOMITING; Start at 01:30 Nitroglycerin (Nitroglycerin (Sl Tab) 0.4 Mg) 1 tab Q5M PRN SL CHEST PAIN; Start 06/17/16 at 01:30 Acetaminophen (Tylenol Supp) 650 mg Q4H PRN [place] PAIN LEVEL 1-3 OR FEVER; Start 06/17/16 at 01:30 Lorazepam (Ativan) 1 mg Q2H PRN IV ANXIETY; Start 06/17/16 at 01:30 Bisacodyl (Dulcolax Supp) 10 mg DAILY PRN VT CONSTIPATION; Start 06/17/16 at 01 :30 Pantoprazole (Protonix Iv) 40 mg DAILY@06 IV Last administered on 06/19/16 06: 05; Admin Dose 40 MG; Start 06/17/16 at 06:00 Acetaminophen (Tylenol Supp) 650 mg Q4H PRN VT TEMP > 37C; Start 06/17/16 at 01 :30 Acetaminophen (Tylenol Liquid) 650 mg Q4H PRN PO TEMP > 37C; Start 06/17/16 at 01:30 Meperidine HCl (Demerol) 12.5 mg Q4H PRN IV POST OPERATIVE SHIVERING; Start at 01:30 Meperidine HCl 25 mg 25 mg Q4H PRN IV POST OPERATIVE SHIVERING; Start 06/17/16 at 01:30 Piperacillin Sod/ Tazobactam Sod (Zosyn 3.375gm/ 100 ml (Pmx)) 100 ml @ 200 mls /hr Q6 IVPB Last administered on 06/19/16 18:04; Admin Dose 200 MLS/HR; Start 06/17/16 at 06:00 Valsartan (Diovan) 160 mg DAILY NGT Last administered on 06/19/16 11:15; Admin Dose 160 MG; Start 06/17/16 at 20:30 Metoprolol Tartrate (Lopressor) 25 mg BID NGT Last administered on 06/19/16 11 :16; Admin Dose 25 MG; Start 06/17/16 at 21:00 Miscellaneous Information 1 ea NOTE XX ; Start 06/18/16 at 19:00 Glucose (Glutose) 15 gm Q15M PRN PO DECREASED GLUCOSE; Start 06/18/16 at 19:00 Glucose (Glutose) 22.5 gm Q15M PRN PO DECREASED GLUCOSE; Start 06/18/16 at 19: 00 Dextrose (D50w Syringe) 25 ml Q15M PRN IV DECREASED GLUCOSE; Start 06/18/16 at 19:00 Dextrose (D50w Syringe) 50 ml Q15M PRN IV DECREASED GLUCOSE; Start 06/18/16 at 19:00 Glucagon (Glucagen) 1 mg Q15M PRN IM DECREASED GLUCOSE; Start 06/18/16 at 19:00 Glucose (Glutose) 15 gm Q15M PRN BUCCAL DECREASED GLUCOSE; Start 06/18/16 at 19 :00 Calcium/Vitamin D (Oyster Shell/ Vit-D (500/200)) 1 tab TID NGT Last administered on 06/19/16 12:45; Admin Dose 1 TAB; Start 06/19/16 at 09:00 Insulin Aspart (Novolog Insulin Pen) NOVOLOG *MILD* ALGORI... Q6 SC ; Start at 12:00 Lactobacillus Acidoph/Bulgaricus (Floranex) 1 tab BID PO ; Start 06/19/16 at 21: 00 NELIA COTTON Jun 19, 2016 19:47
[2016-06-19] MEDS: ATORVASTATIN 80 MG TAB NGT SCH (21:00)
[2016-06-19] MEDS: LACTOBACILLUS CHEW TAB PO SCH (21:00)
[2016-06-20] VITALS (21 sets, daily range): BP systolic 97–146; BP diastolic 52–83; PULSE 68–92; RESP 9–18
[2016-06-20] MEDS: ALBUTEROL HFA 8 GM INHALER INH SCH ×2 (01:00→05:00)
[2016-06-20] MEDS: IPRATROPIUM (HFA) 12.9 GM INHALER INH SCH ×2 (01:00→05:00)
[2016-06-20] MEDS: PIPER-TAZO 3.375 GM IV (PMX) 100 ML IVPB SCH ×3 (01:04→11:39)
[2016-06-20 05:05] LABS: ADD SCAN DIFF NO
[2016-06-20 05:14] LABS: BASOPHILS % 0.2 % (0.0-2.0); EOSINOPHILS # 0.1 10^3/ul (0.0-0.5); HEMATOCRIT 32.6 % (37.0-47.0); HEMOGLOBIN 10.9 g/dl (12.0-16.0); LYMPHOCYTES % 21.8 % (15.0-51.0); MEAN CORPUSCULAR HEMOGLOBIN 31.2 pg (29.0-33.0); MEAN CORPUSCULAR HGB CONC 33.4 g/dl (32.0-37.0); MEAN CORPUSCULAR VOLUME 93.4 fl (82.0-101.0); MONOCYTE # 0.9 10^3/ul (0.3-0.9); MONOCYTES % 9.4 % (0.0-11.0); NEUTROPHIL # 6.2 10^3/ul (1.6-7.5); NEUTROPHILS % 66.9 % (39.0-77.0); PLATELET COUNT 150 10^3/UL (140-415); RED BLOOD COUNT 3.49 10^6/ul (4.20-5.40); RED CELL DISTRIBUTION WIDTH 13.3 % (11.5-14.5); WHITE BLOOD COUNT 9.2 10^3/ul (4.8-10.8)
[2016-06-20 05:28] LABS: POTASSIUM 3.5 mmol/L (3.5-5.1)
[2016-06-20 05:29] LABS: CREATININE 0.7 mg/dl (0.44-1.00)
[2016-06-20 05:30] LABS: ALBUMIN/GLOBULIN RATIO 1.25; BILIRUBIN,INDIRECT 0.2 mg/dl (0-1.1); BILIRUBIN,TOTAL 0.2 mg/dl (0.2-1.3); CALCIUM 7.9 mg/dl (8.4-10.2); TOTAL PROTEIN 5.4 g/dl (6.1-8.1)
[2016-06-20] MEDS: INSULIN ASPART [NOVOLOG] 3 ML PEN SC SCH ×4 (06:00→17:05)
[2016-06-20] MEDS: PANTOPRAZOLE 40 MG INJ IV SCH (06:18)
--- NOTE | 2016-06-20 08:48 | PN ---
Date/Time of Note Date/Time of Note DATE: 06/20/16 TIME: 08:36 Assessment/Plan VTE Prophylaxis VTE Prophylaxis Intervention: SCD's Lines/Catheters IV [facility]ter Type (from [facility]): Peripheral IV Urinary Cath still in place: Yes Reason Cath still needed: other (indicate) (recent extubation) Assessment/Plan Assessment/Plan 60 yo female with a past medical history of essential hypertension, depression who came in for Vfib arrest. 1. Vfib arrest - 2/2 severe hypokalemia + CAD * Questionable small distal left circumflex lesion, post balloon angioplasty of small vessel * s/p hypothermia protocol 2. Acute resp failure 05/27 #1: * now successfully extubated 3. Metabolic acidosis - severe: resolved 4. Severe hypokalemia - Repleted 5. Bilateral pneumonia 6. Hyperglycemia: stress induced / a1c 5.3 / resolved 7. Essential hypertension - controlled 8. Chronic Depression 9. Cardiomyopathy with EF 40%, global hypokinesis, likely secondary to cardiac arrest versus chronic 10. S/p Witness fall without injury 05/27 #1 11. Diarrhea: C-diff neg / cultures unreactive / likely reactive 12. Chronic Hepatitis C 13. Tobacco abuse 14. Remote hx of alcohol and substace abuse PLAN: * Will continue current abx for severe pneumonia * CXR post extubation * Speech therapy and PT eval pending * Remain in ICU until Cleared by Pulm for tele transfer * Continue to follow cardiology recs and mgt * Continue serial labs and supportive care PROPHYLAXIS: Heparin / PPI Prognosis remains guarded CRITICAL CARE TIME: >35 mins Subjective 24 Hr Interval Summary Free Text/Dictation Patient was successfully extubated yesterday Exam/Review of Systems Vital Signs Vitals Vital Signs Date Time Temp Pulse Resp B/P Pulse Ox O2 Delivery O2 Flow Rate FiO2 06/20/16 06:00 81 16 119/68 92 Room Air 06/20/16 04:00 99.1 06/20/16 03:00 2.0 06/20/16 02:15 28 Intake and Output 06/19/16 06/19/16 06/20/16 15:00 23:00 07:00 Intake Total 708.22 ml 109.4 ml 200 ml Output Total 1954 ml 1750 ml 720 ml Balance -1245.78 ml -1640.6 ml -520 ml Exam Constitutional: alert, oriented Head: normocephalic Eyes: other (bruising) ENMT: No mucosa pink and moist (dry mucosa) Respiratory: diminished breath sounds, No labored breathing Cardiovascular: regular rate and rhythm, No murmurs/extra sounds Gastrointestinal: bowel sounds, non-tender, soft Extremities: No edema Neurological: lethargic, nl mental status Results Result Diagram: 06/20/16 0430 06/20/16 0430 Results 24 hrs Laboratory Tests Test 06/19/16 12:42 06/19/16 17:58 06/20/16 01:07 06/20/16 04:30 Bedside Glucose 97 106 102 Alanine Aminotransferase (ALT/SGPT) 44 Albumin 3.0 L Albumin/Globulin Ratio 1.25 Alkaline Phosphatase 49 Anion Gap 15 Aspartate Amino Transf (AST/SGOT) 93 H Basophils # 0.0 Basophils % 0.2 Blood Urea Nitrogen 9 Calcium Level 7.9 L Carbon Dioxide Level 25 Chloride Level 111 H Creatinine 0.70 Direct Bilirubin 0.00 Eosinophils # 0.1 Eosinophils % 1.0 Globulin 2.40 Glucose Level 94 Hematocrit 32.6 L Hemoglobin 10.9 L Indirect Bilirubin 0.2 Lymphocytes # 2.0 Lymphocytes % 21.8 Magnesium Level 2.0 Mean Corpuscular Hemoglobin 31.2 Mean Corpuscular Hemoglobin Concent 33.4 Mean Corpuscular Volume 93.4 Mean Platelet Volume 11.0 H Monocytes # 0.9 Monocytes % 9.4 Neutrophils # 6.2 Neutrophils % 66.9 Nucleated Red Blood Cells # 0.0 Nucleated Red Blood Cells % 0.0 Platelet Count 150 Potassium Level 3.5 Red Blood Count 3.49 L Red Cell Distribution Width 13.3 Sodium Level 147 H Total Bilirubin 0.2 Total Protein 5.4 L White Blood Count 9.2 Test 06/20/16 06:16 Bedside Glucose 105 Medications Medications Current Medications Aspirin (Aspirin) 81 mg DAILY NGT Last administered on 06/19/16 11:16; Admin Dose 81 MG; Start 06/17/16 at 09:00 Clopidogrel Bisulfate (plaVIX) 75 mg DAILY NGT Last administered on 06/19/16 11:16; Admin Dose 75 MG; Start 06/17/16 at 09:00 Atorvastatin Calcium (Lipitor) 80 mg HS NGT Last administered on 06/18/16 21: 13; Admin Dose 80 MG; Start 06/17/16 at 21:00 Ondansetron HCl (Zofran Inj) 4 mg Q6H PRN IV NAUSEA AND/OR VOMITING; Start at 01:30 Nitroglycerin (Nitroglycerin (Sl Tab) 0.4 Mg) 1 tab Q5M PRN SL CHEST PAIN; Start 06/17/16 at 01:30 Acetaminophen (Tylenol Supp) 650 mg Q4H PRN MS PAIN LEVEL 1-3 OR FEVER; Start 06/17/16 at 01:30 Lorazepam (Ativan) 1 mg Q2H PRN IV ANXIETY; Start 06/17/16 at 01:30 Bisacodyl (Dulcolax Supp) 10 mg DAILY PRN MS CONSTIPATION; Start 06/17/16 at 01 :30 Pantoprazole (Protonix Iv) 40 mg DAILY@06 IV Last administered on 06/20/16 06: 18; Admin Dose 40 MG; Start 06/17/16 at 06:00 Acetaminophen (Tylenol Supp) 650 mg Q4H PRN MS TEMP > 37C; Start 06/17/16 at 01 :30 Acetaminophen (Tylenol Liquid) 650 mg Q4H PRN PO TEMP > 37C; Start 06/17/16 at 01:30 Meperidine HCl (Demerol) 12.5 mg Q4H PRN IV POST OPERATIVE SHIVERING; Start at 01:30 Meperidine HCl 25 mg 25 mg Q4H PRN IV POST OPERATIVE SHIVERING; Start 06/17/16 at 01:30 Piperacillin Sod/ Tazobactam Sod (Zosyn 3.375gm/ 100 ml (Pmx)) 100 ml @ 200 mls /hr Q6 IVPB Last administered on 06/20/16 06:17; Admin Dose 200 MLS/HR; Start 06/17/16 at 06:00 Valsartan (Diovan) 160 mg DAILY NGT Last administered on 06/19/16 11:15; Admin Dose 160 MG; Start 06/17/16 at 20:30 Metoprolol Tartrate (Lopressor) 25 mg BID NGT Last administered on 06/19/16 11 :16; Admin Dose 25 MG; Start 06/17/16 at 21:00 Miscellaneous Information 1 ea NOTE XX ; Start 06/18/16 at 19:00 Glucose (Glutose) 15 gm Q15M PRN PO DECREASED GLUCOSE; Start 06/18/16 at 19:00 Glucose (Glutose) 22.5 gm Q15M PRN PO DECREASED GLUCOSE; Start 06/18/16 at 19: 00 Dextrose (D50w Syringe) 25 ml Q15M PRN IV DECREASED GLUCOSE; Start 06/18/16 at 19:00 Dextrose (D50w Syringe) 50 ml Q15M PRN IV DECREASED GLUCOSE; Start 06/18/16 at 19:00 Glucagon (Glucagen) 1 mg Q15M PRN IM DECREASED GLUCOSE; Start 06/18/16 at 19:00 Glucose (Glutose) 15 gm Q15M PRN BUCCAL DECREASED GLUCOSE; Start 06/18/16 at 19 :00 Calcium/Vitamin D (Oyster Shell/ Vit-D (500/200)) 1 tab TID NGT Last administered on 06/19/16t 12:45; Admin Dose 1 TAB; Start 06/19/16 at 09:00 Insulin Aspart (Novolog Insulin Pen) NOVOLOG *MILD* ALGORI... Q6 SC ; Start at 12:00 Lactobacillus Acidoph/Bulgaricus (Floranex) 1 tab BID PO ; Start 06/19/16 at 21: 00 LOREN HONG Jun 20, 2016 08:47
[2016-06-20] MEDS ORDERED: ASPIRIN 81 MG TAB PO SCH (09:00)
[2016-06-20] MEDS ORDERED: CLOPIDOGREL 75 MG TAB PO SCH (09:00)
[2016-06-20] MEDS: POTASSIUM CHLORIDE 50 ML IVPB PRN ×2 (10:02→10:30)
[2016-06-20] MEDS: METOPROLOL 25 MG TAB NGT SCH (10:03)
--- NOTE | 2016-06-20 10:20 | CONS ---
Date/Time of Note Date/Time of Note DATE: 06/20/16 TIME: 10:17 Assessment/Plan Assessment/Plan Additional Assessment/Plan Assessment and recommendations; 1. Patient admitted with cardiac arrest was likely was from hypokalemia. 2. Essentially negative coronary angiogram. 3. Patient successfully extubated yesterday afternoon, exhibiting excellent overall clinical status. 4. History of hepatitis C. Next 5. History of hypertension. Continue current treatment. Patient can be transferred to the medical floor. I will sign off. Thanks for the referral. Please reconsult if needed. Consultation Date/Type/Reason Admit Date/Time Jun 17, 2016 at 01:43 Initial Consult Date 06/17/16 Type of Consultation: Pulmonary/critical Referring Provider: SAM DOHERTY MD 24 HR Interval Summary Free Text/Dictation Patient condition remains stable. She was successfully extubated yesterday afternoon. She is completely awake alert denies any shortness of breath, chest pain. General examination; middle aged woman, awake alert currently in no distress. Exam/Review of Systems Vital Signs Vitals Vital Signs Date Time Temp Pulse Resp B/P Pulse Ox O2 Delivery O2 Flow Rate FiO2 06/20/16 09:22 68 06/20/16 06:00 16 119/68 92 Room Air 06/20/16 04:00 99.1 06/20/16 03:00 2.0 06/20/16 02:15 28 Intake and Output 06/19/16 06/19/16 06/20/16 15:00 23:00 07:00 Intake Total 708.22 ml 109.4 ml 200 ml Output Total 1954 ml 1750 ml 720 ml Balance -1245.78 ml -1640.6 ml -520 ml Exam H EENT examination; supple neck, no JVD. No lymphadenopathy. Pharynx is clear. There is mild crusting of blood around the lips. Without any active bleeding seen. Pupils are midsize and reactive to light. No thyromegaly. No neck masses. Chest examination; clear to auscultation bilaterally. S1-S2 audible, no murmurs. Regular rhythm. Abdomen examination; soft, nondistended. No organomegaly. Bowel sounds audible. Extremity examination; no peripheral edema. Pulses 1+ bilaterally. RAILROAD ACCOUNTANT examination; no focal deficit. Results Result Diagram: 2/26/17 0430 2/26/17 0430 Results 24 hrs Laboratory Tests Test 06/19/16 12:42 06/19/16 17:58 06/20/16 01:07 06/20/16 04:30 Bedside Glucose 97 106 102 Alanine Aminotransferase (ALT/SGPT) 44 Albumin 3.0 L Albumin/Globulin Ratio 1.25 Alkaline Phosphatase 49 Anion Gap 15 Aspartate Amino Transf (AST/SGOT) 93 H Basophils # 0.0 Basophils % 0.2 Blood Urea Nitrogen 9 Calcium Level 7.9 L Carbon Dioxide Level 25 Chloride Level 111 H Creatinine 0.70 Direct Bilirubin 0.00 Eosinophils # 0.1 Eosinophils % 1.0 Globulin 2.40 Glucose Level 94 Hematocrit 32.6 L Hemoglobin 10.9 L Indirect Bilirubin 0.2 Lymphocytes # 2.0 Lymphocytes % 21.8 Magnesium Level 2.0 Mean Corpuscular Hemoglobin 31.2 Mean Corpuscular Hemoglobin Concent 33.4 Mean Corpuscular Volume 93.4 Mean Platelet Volume 11.0 H Monocytes # 0.9 Monocytes % 9.4 Neutrophils # 6.2 Neutrophils % 66.9 Nucleated Red Blood Cells # 0.0 Nucleated Red Blood Cells % 0.0 Platelet Count 150 Potassium Level 3.5 Red Blood Count 3.49 L Red Cell Distribution Width 13.3 Sodium Level 147 H Total Bilirubin 0.2 Total Protein 5.4 L White Blood Count 9.2 Test 06/20/16 06:16 Bedside Glucose 105 Medications Medications Current Medications Ondansetron HCl (Zofran Inj) 4 mg Q6H PRN IV NAUSEA AND/OR VOMITING; Start at 01:30 Nitroglycerin (Nitroglycerin (Sl Tab) 0.4 Mg) 1 tab Q5M PRN SL CHEST PAIN; Start 06/17/16 at 01:30 Acetaminophen (Tylenol Supp) 650 mg Q4H PRN [place] PAIN LEVEL 1-3 OR FEVER; Start 06/17/16 at 01:30 Lorazepam (Ativan) 1 mg Q2H PRN IV ANXIETY; Start 06/17/16 at 01:30 Bisacodyl (Dulcolax Supp) 10 mg DAILY PRN [place] CONSTIPATION; Start 06/17/16 at 01 :30 Pantoprazole (Protonix Iv) 40 mg DAILY@06 IV Last administered on 06/20/16t 06: 18; Admin Dose 40 MG; Start 06/17/16 at 06:00 Acetaminophen (Tylenol Supp) 650 mg Q4H PRN [place] TEMP > 37C; Start 06/17/16 at 01 :30 Acetaminophen (Tylenol Liquid) 650 mg Q4H PRN PO TEMP > 37C; Start 06/17/16 at 01:30 Meperidine HCl (Demerol) 12.5 mg Q4H PRN IV POST OPERATIVE SHIVERING; Start at 01:30 Meperidine HCl 25 mg 25 mg Q4H PRN IV POST OPERATIVE SHIVERING; Start 06/17/16 at 01:30 Piperacillin Sod/ Tazobactam Sod (Zosyn 3.375gm/ 100 ml (Pmx)) 100 ml @ 200 mls /hr Q6 IVPB Last administered on 06/20/16 06:17; Admin Dose 200 MLS/HR; Start 06/17/16 at 06:00 Miscellaneous Information 1 ea NOTE XX ; Start 06/18/16 at 19:00 Glucose (Glutose) 15 gm Q15M PRN PO DECREASED GLUCOSE; Start 06/18/16 at 19:00 Glucose (Glutose) 22.5 gm Q15M PRN PO DECREASED GLUCOSE; Start 06/18/16 at 19: 00 Dextrose (D50w Syringe) 25 ml Q15M PRN IV DECREASED GLUCOSE; Start 06/18/16 at 19:00 Dextrose (D50w Syringe) 50 ml Q15M PRN IV DECREASED GLUCOSE; Start 06/18/16 at 19:00 Glucagon (Glucagen) 1 mg Q15M PRN IM DECREASED GLUCOSE; Start 06/18/16 at 19:00 Glucose (Glutose) 15 gm Q15M PRN BUCCAL DECREASED GLUCOSE; Start 06/18/16 at 19 :00 Insulin Aspart (Novolog Insulin Pen) NOVOLOG *MILD* ALGORI... Q6 SC ; Start at 12:00 Lactobacillus Acidoph/Bulgaricus (Floranex) 1 tab BID PO ; Start 06/19/16 at 21: 00 Aspirin (Aspirin) 81 mg DAILY PO Last administered on 06/20/16 10:01; Admin Dose 81 MG; Start 06/20/16 at 09:00 Clopidogrel Bisulfate (plaVIX) 75 mg DAILY PO Last administered on 06/20/16 10 :01; Admin Dose 75 MG; Start 06/20/16 at 09:00 Atorvastatin Calcium (Lipitor) 80 mg HS PO ; Start 06/20/16 at 21:00 Calcium/Vitamin D (Oyster Shell/ Vit-D (500/200)) 1 tab TID PO ; Start 06/20/16 at 13:00 Metoprolol Tartrate (Lopressor) 25 mg BID PO ; Start 06/20/16 at 21:00 Valsartan (Diovan) 160 mg DAILY PO ; Start 06/20/16 at 10:30 GIOVANNI NAVARRETE Jun 20, 2016 10:20
[2016-06-20] MEDS: LACTOBACILLUS CHEW TAB PO SCH (10:27)
[2016-06-20] MEDS ORDERED: VALSARTAN 160 MG TAB PO SCH (10:30)
--- NOTE | 2016-06-20 12:03 | RADRPT ---
PROCEDURE: XR Chest. CLINICAL INDICATION: Post extubation evaluation TECHNIQUE: Single view of the chest COMPARISON: Chest radiograph June 19, 2016 FINDINGS: The endotracheal tube and enteric tube have been removed. Cardiac silhouette is not enlarged. There are atherosclerotic calcifications of the aorta. There is no pleural effusion. There is no pneumothorax. There is no acute osseous abnormality. IMPRESSION: 1. No focal consolidation noting atherosclerotic calcifications of the aorta. 2. Interval removal of endotracheal and enteric tubes. RPTAT: UU .Marc Denson MD, MD Date Time Electronically viewed and signed by .Marc Denson MD, MD on 06/20/2016 12:03 .K/
[2016-06-20] MEDS ORDERED: NIT4 SL (12:05)
[2016-06-20] MEDS ORDERED: ASPI81TA3 PO (12:05)
[2016-06-20] MEDS ORDERED: CALC-277 PO (12:05)
[2016-06-20] MEDS ORDERED: LACTINEX PO (12:05)
[2016-06-20] MEDS ORDERED: CEFE1FRO IV (12:05)
[2016-06-20] MEDS ORDERED: ALBU18HF INH (12:05)
[2016-06-20] MEDS ORDERED: METO-448 PO (12:05)
[2016-06-20] MEDS ORDERED: VALS160T26 PO (12:05)
[2016-06-20] MEDS ORDERED: PANT40TA3 PO (12:05)
[2016-06-20] MEDS ORDERED: CLOP75TA28 PO (12:05)
[2016-06-20] MEDS ORDERED: ATOR80TA75 PO (12:06)
[2016-06-20] MEDS ORDERED: LACTOBACILLUS CHEW TAB PO SCH (13:00)
[2016-06-20] MEDS ORDERED: POTASSIUM CHLORIDE 20 MEQ in SOD CHLORIDE 0.9% 100 ML IVPB ONE (13:00)
[2016-06-20] MEDS ORDERED: CALCIUM/VITAMIN D (500/200) TAB PO SCH (13:00)
--- NOTE | 2016-06-20 13:19 | DS ---
DATE OF ADMISSION: 06/17/2016 DATE OF DISCHARGE: 06/20/2016 PRESENTING COMPLAINT: A 60-year-old female with a past medical history of hypertension and depressi on, who came in for ventricular fibrillation arrest. HOSPITAL COURSE: This patient was noticed by her family to have collapsed on the floor, hit the karey k of her head. Immediately, family conducted CPR until EMS arrived. EMS took over and intubated th e patient. She was brought to [facility] for further evaluation and treatment. She was suraj led in as a code STEMI, and she was immediately seen by Dr. Marry Borja. Presenting rhythm in the ER was v-fib. Patient was shocked 5 times. EKG post-resuscitation showed ST elevation in the i nferior leads. ADMISSION DIAGNOSES: 1. Ventricular fibrillation arrest. 2. ST elevation myocardial infarction. 3. Profound hypokalemia. 4. Hypertension. 5. Hypercholesterolemia. 6. Bilateral pneumonia. 7. Metabolic acidosis. 8. Chronic depression. 9. History of hepatitis C. Imaging studies that were done right away include a chest x-ray that showed no active intrathoracic pathology, and tubes in adequate position. A CT scan of her cervical spine uncovered the depe ndent bilateral lung consolidations suggestive of aspiration pneumonia and pneumonitis and chronic d egenerative bone changes, but no acute fractures. A CT scan of the brain also done 06/17/2016 that showed no mass effect or acute intracranial bleed with chronic sinus disease change. She was also f ound to have left supraorbital and parietal scalp soft tissue swelling. The patient was immediately taken to labor mediator by Dr. Marry Borja where she underwent coronary a ngiography, left heart the left ventriculography, and balloon angioplasty of the distal left circumf ana. This was done on 06/17/2016. After the procedure, Dr. Borja felt that while there was a qu estionable distal left circumflex lesion, it is more likely that the patient's cardiac arrest was se condary to profound hypokalemia with potassium of 2.2 in a patient that chronically takes hydrochlor othiazide for blood pressure control. Further discussion: Also, patient was noted to have profound diarrhea while in the intensive care u nit. She was placed on the hypothermia protocol post-catheterization, and she tolerated this quite well. She had a few episodes of ventricular tachycardia during the re-warming process, but did not require any aggressive antiarrhythmics. Diarrhea again was noted and was tested for C. diff colitis and cultures, and basically these came back negative. The family did report that patient has a sen sitive stomach and has episodes of diarrhea in the past. The patient has a known history of hepatit is C as mentioned earlier. At this time, patient has been successfully extubated. She has been sta rted on a soft, clear liquid diet and seems to be tolerating with small bites. She is being downgra ded to the telemetry floor for further management, and it is our assessment that she is stable for t ransfer to [facility] as based on her insurance. FINAL DIAGNOSES: A 60-year-old female with: 1. Ventricular fibrillation arrest secondary to severe hypokalemia with mild coronary artery diseas e. 2. Questionable small distal left circumflex lesion, status post balloon angioplasty of small vesse l, status post hypothermia protocol. 3. Acute respiratory failure secondary to #1, now successfully extubated and significantly improved . 4. Severe metabolic acidosis, now resolved. 5. Hypokalemia, repleted. 6. Chronic diarrhea, now resolved, source unclear. 7. Bilateral pneumonia, on antibiotic therapy. 8. Stress-induced hyperglycemia. Hemoglobin A1c came back 5.3, now resolved. 9. Hypertension, uncontrolled. 10. Chronic depression 11. Chronic cardiomyopathy with ejection fraction of 40%, global hypokinesis, which is likely chron ic in the setting of a history of remote drug abuse versus secondary to acute cardiac arrest. 12. Status post witnessed fall without injury. 13. Chronic hepatitis C. 14. quitting tobacco abuse. 15. Remote history of alcohol and substance abuse. DISPOSITION: Transfer to [facility] with ACLS precautions. Recommended diet at this time is mechanical soft with thickened liquids. Activity: The patient is still pending physical therapy e valuation and recommendations, and follow up will be with her primary care physician and cardiologis t and hospitalist doctors at [place]. Overall time spent on critical care evaluation today and discharge coordination has been more than 5 5 minutes. For further information and clarification, please review the patient's chart. Dictated By: LOREN HONG MD, BA/BENJAMIN Conf#: [id number] DID#: [id number]
--- NOTE | 2016-06-20 13:48 | PN ---
Date/Time of Note Date/Time of Note DATE: 06/20/16 TIME: 13:44 Assessment/Plan VTE Prophylaxis VTE Prophylaxis Intervention: SCD's Lines/Catheters IV Catheter Type (from Nrs): Peripheral IV Urinary Cath still in place: Yes Reason Cath still needed: other (indicate) (patient just extubated and will be transferred) Assessment/Plan Chief Complaint/Hosp Course 60 yo with witnessed vf arrest and ekg showing st elevations in inferior leads. Problems: Assessment/Plan Impression: VF arrest likely secondary to profound hypokalemia Questionable small distal left circumflex lesion, post balloon angioplasty of small vessel Cardiomyopathy with EF 40%, global hypokinesis, likely secondary to cardiac arrest Hypokalemia, hypocalcemia, with correction of electrolytes Hypertension Hepatitis C Recommendations: Continue asa, clopidogrel, and statin for treatment of possible small acute coronary occlusion Observe electrolytes and replete as needed Continue valsartan and metoprolol for cardiomyopathy and blood pressure control , and uptitrate as able If patient able to swallow pills, would switch metoprolol tartrate to metoprolol succinate which is more appropriate for treatment of cardiomyopathy Patient to be transferred to [facility] today Subjective 24 Hr Interval Summary Free Text/Dictation Patient is awake and resting in bed, denies pain. Constitutional: no complaints Exam/Review of Systems Vital Signs Vitals Vital Signs Date Time Temp Pulse Resp B/P Pulse Ox O2 Delivery O2 Flow Rate FiO2 06/20/16 12:45 75 06/20/16 06:00 16 119/68 92 Room Air 06/20/16 04:00 99.1 06/20/16 03:00 2.0 06/20/16 02:15 28 Intake and Output 06/19/16 06/19/16 06/20/16 15:00 23:00 07:00 Intake Total 708.22 ml 109.4 ml 200 ml Output Total 1954 ml 1750 ml 720 ml Balance -1245.78 ml -1640.6 ml -520 ml Exam Constitutional: alert Psych: no complaints ENMT: other (bruising under right corner of mouth) Neck: No bruits, No jvd Respiratory: clear to auscultation, normal air movement Cardiovascular: regular rate and rhythm, No murmurs/extra sounds Gastrointestinal: soft Musculoskeletal: nl extremities to inspection Extremities: No edema Neurological: nl mental status, nl speech Skin: nl turgor Results Result Diagram: 06/20/16 0430 06/20/16 0430 Results 24 hrs Laboratory Tests Test 06/19/16 17:58 06/20/16 01:07 06/20/16 04:30 06/20/16 06:16 Bedside Glucose 106 102 105 Alanine Aminotransferase (ALT/SGPT) 44 Albumin 3.0 L Albumin/Globulin Ratio 1.25 Alkaline Phosphatase 49 Anion Gap 15 Aspartate Amino Transf (AST/SGOT) 93 H Basophils # 0.0 Basophils % 0.2 Blood Urea Nitrogen 9 Calcium Level 7.9 L Carbon Dioxide Level 25 Chloride Level 111 H Creatinine 0.70 Direct Bilirubin 0.00 Eosinophils # 0.1 Eosinophils % 1.0 Globulin 2.40 Glucose Level 94 Hematocrit 32.6 L Hemoglobin 10.9 L Indirect Bilirubin 0.2 Lymphocytes # 2.0 Lymphocytes % 21.8 Magnesium Level 2.0 Mean Corpuscular Hemoglobin 31.2 Mean Corpuscular Hemoglobin Concent 33.4 Mean Corpuscular Volume 93.4 Mean Platelet Volume 11.0 H Monocytes # 0.9 Monocytes % 9.4 Neutrophils # 6.2 Neutrophils % 66.9 Nucleated Red Blood Cells # 0.0 Nucleated Red Blood Cells % 0.0 Platelet Count 150 Potassium Level 3.5 Red Blood Count 3.49 L Red Cell Distribution Width 13.3 Sodium Level 147 H Total Bilirubin 0.2 Total Protein 5.4 L White Blood Count 9.2 Test 06/20/16 11:46 Bedside Glucose 94 Medications Medications Current Medications Ondansetron HCl (Zofran Inj) 4 mg Q6H PRN IV NAUSEA AND/OR VOMITING; Start at 01:30 Nitroglycerin (Nitroglycerin (Sl Tab) 0.4 Mg) 1 tab Q5M PRN SL CHEST PAIN; Start 06/17/16 at 01:30 Acetaminophen (Tylenol Supp) 650 mg Q4H PRN [place] PAIN LEVEL 1-3 OR FEVER; Start 06/17/16 at 01:30 Lorazepam (Ativan) 1 mg Q2H PRN IV ANXIETY; Start 06/17/16 at 01:30 Bisacodyl (Dulcolax Supp) 10 mg DAILY PRN [place] CONSTIPATION; Start 06/17/16 at 01 :30 Pantoprazole (Protonix Iv) 40 mg DAILY@06 IV Last administered on 06/20/16t 06: 18; Admin Dose 40 MG; Start 06/17/16 at 06:00 Acetaminophen (Tylenol Supp) 650 mg Q4H PRN [place] TEMP > 37C; Start 06/17/16 at 01 :30 Acetaminophen (Tylenol Liquid) 650 mg Q4H PRN PO TEMP > 37C; Start 06/17/16 at 01:30 Meperidine HCl (Demerol) 12.5 mg Q4H PRN IV POST OPERATIVE SHIVERING; Start at 01:30 Meperidine HCl 25 mg 25 mg Q4H PRN IV POST OPERATIVE SHIVERING; Start 06/17/16 at 01:30 Piperacillin Sod/ Tazobactam Sod (Zosyn 3.375gm/ 100 ml (Pmx)) 100 ml @ 200 mls /hr Q6 IVPB Last administered on 06/20/16 11:39; Admin Dose 200 MLS/HR; Start 06/17/16 at 06:00 Miscellaneous Information 1 ea NOTE XX ; Start 06/18/16 at 19:00 Glucose (Glutose) 15 gm Q15M PRN PO DECREASED GLUCOSE; Start 06/18/16 at 19:00 Glucose (Glutose) 22.5 gm Q15M PRN PO DECREASED GLUCOSE; Start 06/18/16 at 19: 00 Dextrose (D50w Syringe) 25 ml Q15M PRN IV DECREASED GLUCOSE; Start 06/18/16 at 19:00 Dextrose (D50w Syringe) 50 ml Q15M PRN IV DECREASED GLUCOSE; Start 06/18/16 at 19:00 Glucagon (Glucagen) 1 mg Q15M PRN IM DECREASED GLUCOSE; Start 06/18/16 at 19:00 Glucose (Glutose) 15 gm Q15M PRN BUCCAL DECREASED GLUCOSE; Start 06/18/16 at 19 :00 Aspirin (Aspirin) 81 mg DAILY PO Last administered on 06/20/16 10:01; Admin Dose 81 MG; Start 06/20/16 at 09:00 Clopidogrel Bisulfate (plaVIX) 75 mg DAILY PO Last administered on 06/20/16 10 :01; Admin Dose 75 MG; Start 06/20/16 at 09:00 Atorvastatin Calcium (Lipitor) 80 mg HS PO ; Start 06/20/16 at 21:00 Calcium/Vitamin D (Oyster Shell/ Vit-D (500/200)) 1 tab TID PO Last administered on 06/20/16 12:20; Admin Dose 1 TAB; Start 06/20/16 at 13:00 Metoprolol Tartrate (Lopressor) 25 mg BID PO ; Start 06/20/16 at 21:00 Valsartan 160 mg 160 mg DAILY PO Last administered on 06/20/16 10:26; Admin Dose 160 MG; Start 06/20/16 at 10:30 Potassium Chloride/Sodium Chloride (KCl/NS) 110 ml @ 55 mls/hr ONCE ONCE IVPB Last administered on 06/20/16 12:20; Admin Dose 55 MLS/HR; Start 06/20/16 at 13:00; Stop 06/20/16 at 14:59 Venlafaxine HCl (Effexor) 75 mg BID PO ; Start 06/20/16 at 21:00 Lactobacillus Acidoph/Bulgaricus (Floranex) 1 tab TID PO Last administered on 12:20; Admin Dose 1 TAB; Start 06/20/16 at 13:00 NELIA COTTON Jun 20, 2016 13:48
[2016-06-20] MEDS ORDERED: METOPROLOL 25 MG TAB PO SCH (21:00)
[2016-06-20] MEDS ORDERED: VENLAFAXINE 75 MG TABLET PO SCH (21:00)
[2016-06-20] MEDS ORDERED: ATORVASTATIN 80 MG TAB PO SCH (21:00)
--- NOTE | 2016-06-22 17:36 | RADRPT ---
Vent Rate: 61 bpm RR Interval: 0 msec IA Interval: 186 msec QRS Duration: 128 msec QT Interval: 636 msec QTC Interval: 640 msec P-R-T [place]: 34 - 22 - -20 degrees Normal sinus rhythm Nonspecific ST/T changes Abnormal ECG Electronically Signed By: Lucho Marti [id number]
--- NOTE | 2016-06-22 17:49 | RADRPT ---
Vent Rate: 65 bpm RR Interval: 0 msec [place] Interval: 176 msec QRS Duration: 112 msec QT Interval: 538 msec QTC Interval: 559 msec P-R-T [place]: 45 - 22 - 14 degrees Normal sinus rhythm Prolonged QT Inverted T in III Abnormal ECG Electronically Signed By: Lucho Marti [id number]
== END 2016-06-20 18:01 | disposition short-term general hospital (02) | DRG 250 ==
LOC: E/R 23:13 → CCL 23:59 → SDS 23:59 → CCL 06-17 01:38 → ICU 06-17 01:40 → UNDOADMIN 06-17 01:40 → ICU 06-17 01:43
PROVIDERS: ADMIT Student in an Organized Health Care Education/Training Program; ATTEND Family Medicine
PROC: 02704ZZ Dilation of Coronary Artery, One Artery, Percutaneous Endoscopic Approach (ICD-10-PCS; principal; 2016-06-17)
PROC: 4A023N7 Measurement of Cardiac Sampling and Pressure, Left Heart, Percutaneous Approach (ICD-10-PCS; 2016-06-17)
PROC: B211YZZ Fluoroscopy of Multiple Coronary Arteries using Other Contrast (ICD-10-PCS; 2016-06-17)
PROC: B215YZZ Fluoroscopy of Left Heart using Other Contrast (ICD-10-PCS; 2016-06-17)
PROC: 3E033PZ Introduction of Platelet Inhibitor into Peripheral Vein, Percutaneous Approach (ICD-10-PCS; 2016-06-17)
PROC: 5A1945Z Respiratory Ventilation, 24-96 Consecutive Hours (ICD-10-PCS; 2016-06-17)
PROC: 06HM33Z Insertion of Infusion Device into Right Femoral Vein, Percutaneous Approach (ICD-10-PCS; 2016-06-17)
DX: I49.01 Ventricular fibrillation (principal); J96.00 Acute respiratory failure, unspecified whether with hypoxia or hypercapnia; J69.0 Pneumonitis due to inhalation of food and vomit; I42.8 Other cardiomyopathies; E87.2 Acidosis; E83.51 Hypocalcemia; I46.2 Cardiac arrest due to underlying cardiac condition; E87.6 Hypokalemia; I25.10 Atherosclerotic heart disease of native coronary artery without angina pectoris; I42.7 Cardiomyopathy due to drug and external agent; K52.9 Noninfective gastroenteritis and colitis, unspecified; R73.9 Hyperglycemia, unspecified; I10 Essential (primary) hypertension; F32.9 Major depressive disorder, single episode, unspecified; B18.2 Chronic viral hepatitis C; I47.2 Ventricular tachycardia; E78.00 Pure hypercholesterolemia, unspecified; Z87.898 Personal history of other specified conditions; Z91.81 History of falling; Z72.0 Tobacco use
CPT/HCPCS: 36415; 36600; 70450; 71010; 72125; 80048; 80053; 80061; 80202; 82803; 82962; 83036; 83605; 83735; 84100; 84443; 84484; 85025; 85384; 85610; 85730; 87040; 87045; 87075; 87081; 92920; 93005; 93306; 93458; 94002; 94003; 94640; 94770; C1725; C1769; C1887; C1894; C9113; J0282; J0610; J1327; J1644; J1815; J2060; J2543; J3370; J3475; J3480; J7030; J7040; J7050; J7070; Q9967